=== PATIENT | female | born 1990 | race Caucasian/White ===

== ENCOUNTER 2022-01-14 06:51 | Day surgery (SDC) | payer MEDICARE, OTHER, SELFPAY ==
[2022-01-14 07:12] VITALS: BMI 29.0
[2022-01-14 07:25] VITALS: BP 104/70; PULSE 84; RESP 16; TEMP 36.3; O2SAT 95
[2022-01-14] MEDS: SODIUM CHLORIDE 0.9 % (FLUSH) 10 ML SYRINGE IVF (07:26)
[2022-01-14] MEDS: LACTATED RINGERS 1000 ML 1,000 ML 100 ML IV (07:26)
--- NOTE | 2022-01-14 08:07 | W.PM.GYNPROC ---
Procedure Note Date Seen: 01/14/22 Procedure Details: PREOPERATIVE DIAGNOSIS: Menometrorrhagia, failed medical management. POSTOPERATIVE DIAGNOSIS: menometrorrhagia, failed medical management. NAME OF PROCEDURE: 1. Hysteroscopy. 2. D and C. 3. Polypectomy. 4. Marisel endometrial ablation. SURGEON: Danay ANESTHESIA: Monitored anesthesia care and paracervical block COMPLICATIONS: None. ESTIMATED BLOOD LOSS: < 10 mL. FINDINGS: Normal endometrial cavity, polypoid endometrial tissue noted anteriorly.. PATHOLOGY SPECIMENS: Endometrial curettings. PROCEDURE: After obtaining informed consent, the patient was taken to the operating room where she received monitored anesthesia care. She was prepared and draped in the normal sterile fashion, in the dorsal lithotomy position. An open-sided bivalve speculum was introduced into the vagina and the cervix visualized. The anterior lip of the cervix was grasped with a single-tooth tenaculum for traction. A paracervical block was then administered using a total of 20 mL of a 50/50 mixture of 0.25% Marcaine and 1% lidocaine plain. The uterus was gently sounded. Sound length was 9 cm. The cervix length was determined to be 4 cm using Hegar dilators, yielding a uterine cavity length of 5 cm. The cervix was gently dilated to a #6 Hegar dilator. A hysteroscope was then advanced under direct visualization through the cervix into the uterine cavity. Sterile normal saline was used as distending medium. The uterine cavity was carefully inspected with the findings noted above. The TruClear morcellator with the soft tissue mini blade was inserted through the hysteroscope, and used to remove the anterior polypoid endometrial tissue.The hysteroscope was then removed. The endometrial lining was then sharply curetted. The Marisel device was then set to a cavity length of 5 cm, inserted through the cervical os into the uterine cavity to the level of the fundus, and deployed. The device was sealed against the cervix. The safety checks were then passed x2 and the 2-minute treatment cycle initiated. Following completion of the treatment cycle, the Marisel device was removed. The hysteroscope was advanced again into the uterine cavity and the uterine cavity inspected. A good ablation was noted from the internal os to fundus and to the cornua bilaterally. Pictures were taken for documentation purposes. The hysteroscope was removed. The tenaculum was removed. There was little bleeding from the tenaculum site, which was controlled with direct pressure sponge stick. All instruments were then removed. The patient tolerated the procedure well. Sponge, lap, needle, and instrument counts reported as correct x2. The patient was taken to the recovery room awake in a stable condition.
[2022-01-14] MEDS: LIDOCAINE 1% 5 ml (pf) 5 ML VIAL 10 ML INJECTION (08:25)
[2022-01-14] MEDS: BUPIVACAINE 0.25% 30 ML INJECTION (08:25)
--- NOTE | 2022-01-14 09:01 | W.ANESCHARGE ---
Anesthesia Charges Start Date/Time Anesthesia Start Date: 01/14/22 Anesthesia Start Time: 08:09 Stop Date/Time Anesthesia Stop Date: 01/14/22 Anesthesia Stop Time: 09:04 Summary Emergency: No
[2022-01-14 09:07] VITALS: BP 99/79; PULSE 81; RESP 16; TEMP 36.2; O2SAT 96
[2022-01-14 09:30] VITALS: BP 101/66; PULSE 76; RESP 16
[2022-01-14 09:40] VITALS: RESP 16; O2SAT 99
== END 2022-01-14 09:53 | disposition home or self-care (01) ==
PROVIDERS: PCP Physician Assistant; Visit Provider Obstetrics & Gynecology
PROC: 0UF98ZZ Fragmentation in Uterus, Via Natural or Artificial Opening Endoscopic (ICD-10-PCS; CPT 58563; principal; 2022-01-14 08:00)
DX: N92.1 Excessive and frequent menstruation with irregular cycle (principal)
CPT/HCPCS: 58563; 00952; 81025; 88305; J1100; J1885; J2250; J2405; J2704; J3010; J3490; J7120

== ENCOUNTER 2022-04-24 11:16 | Emergency (ER) | payer MEDICARE, OTHER, SELFPAY ==
[2022-04-24 11:19] VITALS: BP 122/84; PULSE 91; TEMP 36.3; O2SAT 98; BMI 29.1
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
--- NOTE | 2022-04-24 11:59 | ED_ITS ---
HPI - General Adult General Chief complaint: Rib Pain Stated complaint: Rib pain left side Time Seen by Provider: 04/24/22 11:24 History of Present Illness HPI narrative: This 31-year-old female comes in with an injury to her left lateral posterior ribs. She states that it was a week ago when she slipped on some ice and fell hitting this area on a step. She did not have immediate intense pain but over the course of the next day or 2 she has lots of pain in this area. It is distinctly worse with certain movements and palpating in the left mid back region. She does not report any shortness of breath. Related Data Home Medications Medication Instructions Recorded Confirmed aripiprazole 30 mg tablet 30 mg PO DAILY 12/05/21 04/24/22 bupropion HCl 300 mg 24 hr tablet, 300 mg PO DAILY 12/05/21 04/24/22 extended release fexofenadine 180 mg tablet 180 mg PO QDAY 12/05/21 04/24/22 (María Allergy) trazodone 50 mg tablet 50 mg PO QDAY 12/05/21 04/24/22 venlafaxine 75 mg capsule,extended 75 mg PO QAM 12/05/21 04/24/22 release 24 hr fluticasone propionate 50 2 spray intranasal Q12H PRN 01/13/22 04/24/22 mcg/actuation nasal spray,suspension omeprazole 20 mg capsule,delayed 20 mg PO DAILY 01/13/22 04/24/22 release Previous Rx's Medication Instructions Recorded ketorolac 10 mg tablet 10 mg PO Q8H 5 days #15 tabs 04/24/22 tramadol 50 mg tablet 50 mg PO Q6H PRN pain #20 tabs 04/24/22 Allergies Allergy/AdvReac Type Severity Reaction Status Date / Time azithromycin Allergy Severe Throat Verified 04/24/22 11:22 swelling Review of Systems Status of ROS: Reports: 10 or more systems reviewed and unremarkable except as noted in History and below Narrative: Constitutional: No fevers, no weight gain or loss. Eyes: No discharge. No vision changes. HENT: No congestion, no sore throat, no ear pain. Cardiovascular: No chest pain, no palpitations. Respiratory: No shortness of breath, no wheezes, no cough. Left lateral posterior rib pain which is worse with taking a deep breath and palpating in that area. Gastrointestinal: No abdominal pain, no vomiting, no diarrhea. Genitourinary: No dysuria, no hematuria. Musculoskeletal: Normal range of motion. Skin: No rashes, no pruritis. Neurological: No dizziness, weakness, sensory change, speech change. Endo/Heme/Allergies: No bruising or bleeding. No polydipsia. Pysch: no suicidality, no anxiety, no insomnia. All other systems reviewed and are negative. [facility] Medical History (Updated 04/24/22 @ 12:20 by Neil Burnette MD) Abnormal liver enzymes Abnormality of rib determined by X-ray Allergic rhinitis, unspecified Autism spectrum disorder Bilateral dry eyes Calculus of gallbladder without cholecystitis without obstruction Chronic GERD Constipation, unspecified Depression with anxiety Hepatic steatosis Hyperlipidemia, unspecified Mild intellectual disabilities Moderate episode of recurrent major depressive disorder Myopia, bilateral Regular astigmatism, bilateral Surgical History (Updated 12/07/21 @ 13:09 by Kathryn Jon MD) History of tubal ligation (06/2017) Perineal abscess (02/2009) S/P tonsillectomy and adenoidectomy (2014) Family History (Updated 12/07/21 @ 13:09 by Kathryn Jon MD) Father High cholesterol Maternal Grandmother Diabetes Social History (Updated 12/07/21 @ 13:12 by Kathryn Jon MD) Narrative: Single 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 HEENT: Normocephalic, atraumatic. Neck: Normal range of motion. Nontender. Supple. Heart: Regular. No murmurs. Normal rate. Intact distal pulses. Lungs: Clear to auscultation. No wheezes, rhonchi, or rales. No sign of bruising to the chest wall or back. She has distinct pain in the left lateral ribs posterior to the axillary line on the left side. Abdomen: Normal bowel sounds. Nontender. No rebound tenderness. Genitalia: Deferred. Back: No midline tenderness. Normal range of motion. Extremities: Normal range of motion. No injury. Skin: Intact. No rash. Warm. No erythema or pallor. Neurologic: No altered sensation. No weakness. Alert and oriented. Psychiatric: No suicidality. No anxiety or depression. No insomnia. Nursing notes and vitals signs are reviewed. Const: Vital Signs, click to edit/add: Vital Signs - 24 hr 04/24/22 11:19 Temperature 97.3 F L Pulse Rate [Pulse Oximeter] 91 Blood Pressure [Ri ght Upper Arm] 122/84 Pulse Oximetry 98 Oxygen Delivery Me thod Room Air Course Vital Signs Vital signs: Initial Vital Signs Temperature 97.3 F L 04/24/22 11:19 Temperature Source Temporal Artery Scan 04/24/22 11:19 Pulse Rate 91 04/24/22 11:19 Pulse Rhythm 04/24/22 11:19 Pulse Strength 3+ Normal 04/24/22 11:19 Blood Pressure 122/84 04/24/22 11:19 Blood Pressure Mean 96 04/24/22 11:19 Blood Pressure Position Sitting 04/24/22 11:19 Pulse Oximetry 98 04/24/22 11:19 Oxygen Delivery Method 04/24/22 11:19 Vital Signs Temperature 97.3 F L 04/24/22 11:19 Pulse Rate 91 04/24/22 11:19 Blood Pressure 122/84 04/24/22 11:19 Pulse Oximetry 98 04/24/22 11:19 Oxygen Delivery Method 04/24/22 11:19 Temperature 97.3 F L 04/24/22 11:19 Pulse Rate 91 04/24/22 11:19 Blood Pressure 122/84 04/24/22 11:19 Pulse Oximetry 98 04/24/22 11:19 Oxygen Delivery Method 04/24/22 11:19 Medical Decision Making MDM Narrative Medical decision making narrative: This patient comes in because of pain in the left posterior ribs after a fall that occurred about a week ago. She does not have any shortness of breath. Bedside ultrasound images show no evidence of pneumothorax. I did discuss the role of a chest x-ray which the patient declined in a process of shared decision making. She did receive a rib belt and a prescription for tramadol and Toradol. Discharge Plan Discharge Clinical Impression: Contusion of rib on left side Patient Disposition: Home, Self-Care Condition: Stable Additional Instructions: Wear rib belt and use medications as needed and indicated. Follow up with MD or return if worsening. Prescriptions: New tramadol 50 mg tablet 50 mg PO Q6H PRN (Reason: pain) Qty: 20 0RF ketorolac 10 mg tablet 10 mg PO Q8H 5 Days Qty: 15 0RF No Action bupropion HCl 300 mg tablet extended release 24 hr 300 mg PO DAILY aripiprazole 30 mg tablet 30 mg PO DAILY venlafaxine 75 mg capsule,extended release 24hr 75 mg PO QAM trazodone 50 mg tablet 50 mg PO QDAY fexofenadine [María Allergy] 180 mg tablet 180 mg PO QDAY omeprazole 20 mg capsule,delayed release(DR/EC) 20 mg PO DAILY fluticasone propionate 50 mcg/actuation spray,suspension 2 spray INTRANASAL Q12H PRN Label Comments: SHAKE LIQUID AND USE 1 TO 2 SPRAYS IN EACH NOSTRIL EVERY DAY Follow Up/Referrals: Prerna Garza PA [Primary Care Provider] - Stand Alone Forms: [facility] Info Instructions Procedures Ultrasound Other exam #1: Anatomical areas examined: Left lateral posterior ribs; upper anterior ribs and pleura. Indications: Chest wall injury. Description/findings: No sign of pneumothorax or rib injury. Impression: Normal exam.
[2022-04-24 12:36] VITALS: PULSE 80; RESP 16; TEMP 37; O2SAT 96
--- NOTE | 2022-04-24 12:37 | PC.NURSE ---
Patient left ambulatory. Rib belt supplied to patient. Prescriptions for Tramadol and Ketorlac sent to [facility]. All questions answered.
== END 2022-04-24 12:38 | disposition home or self-care (01) ==
PROVIDERS: Emergency Provider Emergency Medicine Emergency Medical Services; PCP Physician Assistant
DX: S20.212A Contusion of left front wall of thorax, initial encounter (principal); W00.9XXA Unspecified fall due to ice and snow, initial encounter
CPT/HCPCS: 76604; 99283; 99284

== ENCOUNTER 2022-09-11 17:04 | Emergency (ER) | payer MEDICARE, OTHER, SELFPAY ==
[2022-09-11 17:16] VITALS: BP 123/78; PULSE 83; RESP 18; TEMP 36.7; O2SAT 96; BMI 30.7
--- NOTE | 2022-09-11 18:30 | ED.GENADULT ---
HPI - General Adult General Time Seen by Provider: 18:30 Date Seen: 09/11/22 Chief complaint: Psychiatric Problem/Disorder Stated complaint: Mental health Time Seen by Provider: 09/11/22 18:26 Source: patient Mode of arrival: ambulatory Limitations: no limitations History of Present Illness HPI narrative: Tonya is a 32-year-old female past medical history includes depression anxiety which she takes Abilify, Wellbutrin, trazodone and Effexor presents emerged department via private car with psychiatric problem. Patient states that her parents are moving to help her grandparents this is making her sad, does not know if she can deal with this and be alone, she does not really like her job at [employer], she made a comment that she would rather but she knows she would not go through with this. She has a provider called Shelia Brian in [place] who prescribes her medications she does not see her till the end of September, she also has a counselor outpatient that she sees in [place], she sees her next Thursday. She was hospitalized once in the past for suicidal ideations on her 19st birthday. She denies any auditory or visual hallucinations, she denies any alcohol or tobacco use. No illicit drug use, she was wondering maybe she needs a med adjustment. She has had some seasonal allergies but no other concerns at this time.. Related Data Home Medications Medication Instructions Recorded Confirmed aripiprazole 30 mg tablet 30 mg PO DAILY 12/05/21 04/26/22 bupropion HCl 300 mg 24 hr tablet, 300 mg PO DAILY 12/05/21 04/26/22 extended release fexofenadine 180 mg tablet 180 mg PO QDAY 12/05/21 04/26/22 (María Allergy) trazodone 50 mg tablet 50 mg PO QDAY 12/05/21 04/26/22 venlafaxine 75 mg capsule,extended 75 mg PO QAM 12/05/21 04/26/22 release 24 hr fluticasone propionate 50 2 spray intranasal Q12H PRN 01/13/22 04/26/22 mcg/actuation nasal spray,suspension omeprazole 20 mg capsule,delayed 20 mg PO DAILY 01/13/22 04/26/22 release melatonin 5 mg tablet 5 mg PO HS PRN 09/11/22 09/11/22 Previous Rx's Medication Instructions Recorded ketorolac 10 mg tablet 10 mg PO Q8H 5 days #15 tabs 04/24/22 tramadol 50 mg tablet 50 mg PO Q6H PRN pain #20 tabs 04/24/22 cyclobenzaprine 10 mg tablet 10 mg PO TID PRN muscle spasm #30 04/26/22 tabs prednisone 20 mg tablet 40 mg PO QDAY #10 tabs 04/26/22 Allergies Allergy/AdvReac Type Severity Reaction Status Date / Time azithromycin Allergy Severe Throat Verified 04/26/22 11:38 swelling Review of Systems Status of ROS: Reports: 10 or more systems reviewed and unremarkable except as noted in History and below 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 (ICD-10) Allergic rhinitis, unspecified ?J30.9 - Allergic rhinitis, unspecified (ICD-10) Autism spectrum disorder ?F84.0 - Autistic disorder (ICD-10) Bilateral dry eyes ?H04.123 - Dry eye syndrome of bilateral lacrimal glands (ICD-10) Calculus of gallbladder without cholecystitis without obstruction ?K80.20 - Calculus of gallbladder without cholecystitis without obstruction (ICD-10) Chronic GERD ?K21.9 - Gastro-esophageal reflux disease without esophagitis (ICD-10) Constipation, unspecified ?K59.00 - Constipation, unspecified (ICD-10) Depression with anxiety ?F41.8 - Other specified anxiety disorders (ICD-10) Hepatic steatosis ?K76.0 - Fatty (change of) liver, not elsewhere classified (ICD-10) Hyperlipidemia, unspecified ?E78.5 - Hyperlipidemia, unspecified (ICD-10) Mild intellectual disabilities ?F70 - Mild intellectual disabilities (ICD-10) Moderate episode of recurrent major depressive disorder ?F33.1 - Major depressive disorder, recurrent, moderate (ICD-10) Myopia, bilateral ?H52.13 - Myopia, bilateral (ICD-10) Regular astigmatism, bilateral ?H52.223 - Regular astigmatism, bilateral (ICD-10) Surgical History (Updated 12/07/21 @ 13:09 by Kathryn Jon MD) History of tubal ligation (06/2017) ?Z98.51 - Tubal ligation status (ICD-10) Perineal abscess (02/2009) ?L02.215 - Cutaneous abscess of perineum (ICD-10) S/P tonsillectomy and adenoidectomy (2014) ?Z90.89 - Acquired absence of other organs (ICD-10) Family History (Updated 12/07/21 @ 13:09 by Kathryn Jon MD) Father High cholesterol Maternal Grandmother Diabetes Social History (Updated 12/07/21 @ 13:12 by Kathryn Jon MD) Narrative: Single 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 Highest level of school completed/degree received: some college, no degree Smoking Status: Never smoker How often do you have a drink containing alcohol: monthly or less AUDIT-C Alcohol total score: 1 Non-prescribed substance use: denies use Caffeine: No service: No Exam Narrative: Exam Narrative: General: Nontoxic in appearance, no obvious distress HEENT: Tympanic membranes within normal limits bilateral oropharynx clear and moist Lungs: Clear to auscultation bilaterally Heart: normal sinus rhythm S1-S2 Abdomen: soft nontender Neuro: Alert awake and oriented x3 Psych: Mood and affect normal Const: Vital Signs, click to edit/add: Vital Signs - 24 hr 09/11/22 17:16 09/11/22 19:20 Temperature 98.0 F 97 F L Pulse Rate [Right Pulse Oximeter] 83 70 Respiratory Rate 18 20 Blood Pressure [Ri ght Upper Arm] 123/78 120/82 Pulse Oximetry 96 96 Oxygen Delivery Me thod Room Air Room Air Course Course Hospital Course: 6:30 PM: AIDET performed. Workup will include mental health labs including TSH, CBC and CMP, will have her see telehealth consult, patient is not currently suicidal, she will need some medication adjustments that will be through her primary care provider. Differential diagnosis include but not limited to severe diagnosis of severe depression with suicidal plan, chemical intoxication with suicidal ideation and risk of self-harm, schizoaffective disorder with risk of self-harm, bipolar disorder with severe depressive phase and risk of self-harm, personality disorder, depression due to hypothyroidism metabolic derangement or EVENING OR NIGHT NURSE SUPERVISOR abnormality. Reevaluation(s) Reevaluation #1: Spoke with Lisa from [facility] assessment, recommendations were discharge, patient does not meet criteria for inpatient psychiatry, patient will reach out to her provider discussed changing her current medications, she will also increase her frequency outpatient therapy, patient's labs including CBC metabolic panel and TSH were within normal limits. This was discussed with patient she was in agreement this plan, return precautions given. Vital Signs Vital signs: Initial Vital Signs Temperature 98.0 F 09/11/22 17:16 Temperature Source Temporal Artery Scan 09/11/22 17:16 Pulse Rate 83 09/11/22 17:16 Respiratory Rate 18 09/11/22 17:16 Blood Pressure 123/78 09/11/22 17:16 Blood Pressure Mean 93 09/11/22 17:16 Blood Pressure Position Sitting 09/11/22 17:16 Pulse Oximetry 96 09/11/22 17:16 Oxygen Delivery Method Room Air 09/11/22 17:16 Vital Signs Temperature 98.0 F 09/11/22 17:16 Pulse Rate 83 09/11/22 17:16 Respiratory Rate 18 09/11/22 17:16 Blood Pressure 123/78 09/11/22 17:16 Pulse Oximetry 96 09/11/22 17:16 Oxygen Delivery Method Room Air 09/11/22 17:16 Temperature 97 F L 09/11/22 19:20 Pulse Rate 70 09/11/22 19:20 Respiratory Rate 20 09/11/22 19:20 Blood Pressure 120/82 09/11/22 19:20 Pulse Oximetry 96 09/11/22 19:20 Oxygen Delivery Method Room Air 09/11/22 19:20 Medical Decision Making Lab Data Labs: Lab Results 09/11/22 Range/Units 19:08 WBC 7.96 (4.50-11.00) K/uL RBC 4.19 (4.00-5.20) m/uL Hgb 12.1 (12.0-16.0) gm/dL Hct 37.3 (33.0-51.0) % MCV 89 (80-100) fL MCH 29 (26-34) pg MCHC 32 (32-36) gm/dL RDW Coeff of Vandana 12.8 (11.5-15.5) % Plt Count 283 (140-440) K/uL Neut % (Auto) 59.7 (42.0-72.0) % Lymph % (Auto) 30.4 (20-44) % [place] % (Auto) 6.4 (0.0-11.0) % Eos % (Auto) 2.9 (0.0-7.0) % Baso % (Auto) 0.5 (0.0-3.0) % Neut # (Auto) 4.75 (1.7-7.0) K/uL Lymph # (Auto) 2.42 (0.90-2.90) K/uL [place] # (Auto) 0.50 (0.00-0.90) K/UL Eos # (Auto) 0.23 (0.00-0.50) K/uL Baso # (Auto) 0.04 (0.00-0.30) K/uL Sodium 137 (135-149) mmol/L Potassium 4.1 (3.6-5.1) mmol/L Chloride 106 (96-114) mmol/L Carbon Dioxide 27 (20-32) mmol/L BUN 10 (5-24) mg/dL Creatinine 0.8 (0.5-1.5) mg/dL Estimated Creat Clear 92.76 Estimated GFR 99 ml/min Glucose 91 (60-115) mg/dL Calcium 9.0 (8.4-10.6) mg/dL Total Bilirubin 0.1 (0.1-1.5) mg/dL AST 20 (12-35) U/L ALT 20 (4-35) U/L Alkaline Phosphatase 63 (40-150) U/L Total Protein 7.1 (6.0-8.3) g/dL Albumin 4.2 (3.3-5.0) g/dL TSH 1.160 (0.270-4.20) uIU/mL Discharge Plan Discharge Clinical Impression: Behavior concern Patient Disposition: Home, Self-Care Condition: Improved Instructions: Depression (ED) Additional Instructions: To follow up with outpatient therapy as scheduled on Thursday, to reach out to prescribing provider and discuss alternating or changing current medications, return if any worsening symptoms. Activity Level: No Restrictions Discharge Diet: Regular Prescriptions: No Action bupropion HCl 300 mg tablet extended release 24 hr 300 mg PO DAILY aripiprazole 30 mg tablet 30 mg PO DAILY venlafaxine 75 mg capsule,extended release 24hr 75 mg PO QAM trazodone 50 mg tablet 50 mg PO QDAY fexofenadine [María Allergy] 180 mg tablet 180 mg PO QDAY prednisone 20 mg tablet 40 mg PO QDAY Qty: 10 0RF cyclobenzaprine 10 mg tablet 10 mg PO TID PRN (Reason: muscle spasm) Qty: 30 0RF omeprazole 20 mg capsule,delayed release(DR/EC) 20 mg PO DAILY fluticasone propionate 50 mcg/actuation spray,suspension 2 spray INTRANASAL Q12H PRN Patient Comments: SHAKE LIQUID AND USE 1 TO 2 SPRAYS IN EACH NOSTRIL EVERY DAY melatonin 5 mg tablet 5 mg PO HS PRN tramadol 50 mg tablet 50 mg PO Q6H PRN (Reason: pain) Qty: 20 0RF ketorolac 10 mg tablet 10 mg PO Q8H 5 Days Qty: 15 0RF Follow Up/Referrals: Prerna Garza PA [Primary Care Provider] - Stand Alone Forms: MyHealth Info Instructions
[2022-09-11 19:13] LABS: Basophils Absolute Auto 0.04 K/uL (0.00-0.30); Basophils Percent Auto 0.5 % (0.0-3.0); Eosinophils Absolute Auto 0.23 K/uL (0.00-0.50); Eosinophils Percent Auto 2.9 % (0.0-7.0); Hematocrit 37.3 % (33.0-51.0); Hemoglobin* 12.1 gm/dL (12.0-16.0); Immature Granulocytes Abs Auto 0.01 K/uL (0.00-0.30); Immature Granulocytes Pct Auto 0.1 %; Lymphocytes Absolute Auto 2.42 K/uL (0.90-2.90); Lymphocytes Percent Auto 30.4 % (20-44); Mean Corpuscular HGB Conc 32 gm/dL (32-36); Mean Corpuscular Hemoglobin 29 pg (26-34); Mean Corpuscular Volume 89 fL (80-100); Monocytes Percent Auto 6.4 % (0.0-11.0); Neutrophils Absolute Auto 4.75 K/uL (1.7-7.0); Neutrophils Percent Auto 59.7 % (42.0-72.0); Platelet Count* 283 K/uL (140-440); RDW Coefficient of Variation % 12.8 % (11.5-15.5); Red Blood Count 4.19 m/uL (4.00-5.20); White Blood Count* 7.96 K/uL (4.50-11.00)
[2022-09-11 19:20] VITALS: BP 120/82; PULSE 70; RESP 20; TEMP 36.1; O2SAT 96
[2022-09-11 19:24] LABS: Slide Review Reflex No
[2022-09-11 19:33] LABS: Albumin* 4.2 g/dL (3.3-5.0)
[2022-09-11 19:34] LABS: Chloride* 106 mmol/L (96-114); Potassium* 4.1 mmol/L (3.6-5.1); Sodium* 137 mmol/L (135-149)
[2022-09-11 19:36] LABS: Aspartate Amino Transferase* 20 U/L (12-35); Bilirubin Total* 0.1 mg/dL (0.1-1.5); Carbon Dioxide* 27 mmol/L (20-32); Creatinine* 0.8 mg/dL (0.5-1.5); Est. Creatinine Clearance* 92.76; Estimated Glomerular Filt Rate 99 ml/min; Total Protein* 7.1 g/dL (6.0-8.3)
[2022-09-11 19:37] LABS: Alanine Aminotransferase* 20 U/L (4-35); Alkaline Phosphatase* 63 U/L (40-150); Blood Urea Nitrogen* 10 mg/dL (5-24); Glucose* 91 mg/dL (60-115)
[2022-09-11 21:00] VITALS: BP 137/87; PULSE 85; RESP 18; TEMP 36.1; O2SAT 97
== END 2022-09-11 20:58 | disposition home or self-care (01) ==
PROVIDERS: Emergency Provider Student in an Organized Health Care Education/Training Program; PCP Physician Assistant
DX: F98.8 Other specified behavioral and emotional disorders with onset usually occurring in childhood and adolescence (principal)
CPT/HCPCS: 36415; 80053; 84443; 85025; 99283

== ENCOUNTER 2023-05-23 12:08 | Emergency (ER) | payer MEDICARE, OTHER, SELFPAY ==
[2023-05-23 12:11] VITALS: BP 133/91; PULSE 81; RESP 16; TEMP 36.4; O2SAT 97; BMI 29.4
--- NOTE | 2023-05-23 12:27 | ED.GENADULT ---
HPI - General Adult General Chief complaint: Nausea/Vomiting Stated complaint: vomiting, chills Time Seen by Provider: 05/23/23 12:19 History of Present Illness HPI narrative: Patient is a 32 for a female has had nausea vomiting diarrhea over the last few days. She [facility] were all negative. She reports occasional chills, no significant abdominal pain, no dysuria frequency, her stools are looser than normal but somewhat formed. She has tried to eat or drink and then she gets nauseated. Her medical history was reviewed her chart was reviewed. Her medications are reviewed. Denies chest pain, breathing difficulty, rash, neck stiffness or headache. Related Data Home Medications Medication Instructions Recorded Confirmed aripiprazole 30 mg tablet 30 mg PO DAILY 12/05/21 05/23/23 bupropion HCl 300 mg 24 hr tablet, 300 mg PO DAILY 12/05/21 05/23/23 extended release fexofenadine 180 mg tablet 180 mg PO QDAY 12/05/21 04/26/22 (María Allergy) venlafaxine 75 mg capsule,extended 75 mg PO QAM 12/05/21 05/23/23 release 24 hr fluticasone propionate 50 2 spray intranasal Q12H PRN 01/13/22 04/26/22 mcg/actuation nasal spray,suspension omeprazole 20 mg capsule,delayed 20 mg PO DAILY 01/13/22 05/23/23 release melatonin 5 mg tablet 5 mg PO HS PRN 09/11/22 05/23/23 Previous Rx's Medication Instructions Recorded ketorolac 10 mg tablet 10 mg PO Q8H 5 days #15 tabs 04/24/22 tramadol 50 mg tablet 50 mg PO Q6H PRN pain #20 tabs 04/24/22 cyclobenzaprine 10 mg tablet 10 mg PO TID PRN muscle spasm #30 04/26/22 tabs prednisone 20 mg tablet 40 mg (2 x 20 mg) PO QDAY #10 tabs 04/26/22 Allergies Allergy/AdvReac Type Severity Reaction Status Date / Time azithromycin Allergy Severe Throat Verified 04/26/22 11:38 swelling Review of Systems Status of ROS: Reports: 10 or more systems reviewed and unremarkable except as noted in History and below [facility] Medical History Bilateral dry eyes ?H04.123 - Dry eye syndrome of bilateral lacrimal glands (ICD-10) Myopia, bilateral ?H52.13 - Myopia, bilateral (ICD-10) Regular astigmatism, bilateral ?H52.223 - Regular astigmatism, bilateral (ICD-10) Calculus of gallbladder without cholecystitis without obstruction ?K80.20 - Calculus of gallbladder without cholecystitis without obstruction (ICD-10) Hepatic steatosis ?K76.0 - Fatty (change of) liver, not elsewhere classified (ICD-10) Abnormal liver enzymes ?R74.8 - Abnormal levels of other serum enzymes (ICD-10) 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 (ICD-10) Moderate episode of recurrent major depressive disorder ?F33.1 - Major depressive disorder, recurrent, moderate (ICD-10) Mild intellectual disabilities ?F70 - Mild intellectual disabilities (ICD-10) Chronic GERD ?K21.9 - Gastro-esophageal reflux disease without esophagitis (ICD-10) Hyperlipidemia, unspecified ?E78.5 - Hyperlipidemia, unspecified (ICD-10) Autism spectrum disorder ?F84.0 - Autistic disorder (ICD-10) Constipation, unspecified ?K59.00 - Constipation, unspecified (ICD-10) Allergic rhinitis, unspecified ?J30.9 - Allergic rhinitis, unspecified (ICD-10) Depression with anxiety ?F41.8 - Other specified anxiety disorders (ICD-10) Surgical History Perineal abscess (02/2009) ?L02.215 - Cutaneous abscess of perineum (ICD-10) S/P tonsillectomy and adenoidectomy (2014) ?Z90.89 - Acquired absence of other organs (ICD-10) History of tubal ligation (06/2017) ?Z98.51 - Tubal ligation status (ICD-10) Family History Father High cholesterol Maternal Grandmother Diabetes Social History Narrative: Single 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 Highest level of school completed/degree received: some college, no degree Smoking Status: Never smoker How often do you have a drink containing alcohol: monthly or less AUDIT-C Alcohol total score: 1 Non-prescribed substance use: denies use Caffeine: No service: No Exam Narrative: Exam Narrative: Objective: Vital signs are within normal limits Alert orient x3 noncyanotic No scleral icterus no facial asymmetry Throat is clear Neck is supple abdomen is benign soft nontender no masses bowel sounds normoactive extremities are no edema neurologic nonfocal Const: Vital Signs, click to edit/add: Vital Signs - 24 hr 05/23/23 12:11 Temperature 97.6 F Pulse Rate [Pulse Oximeter] 81 Respiratory Rate 16 Blood Pressure [Ri t Upper Arm] 133/91 H Pulse Oximetry 97 Oxygen Delivery Me thod Room Air Course Vital Signs Vital signs: Initial Vital Signs Temperature 97.6 F 05/23/23 12:11 Temperature Source Temporal Artery Scan 05/23/23 12:11 Pulse Rate 81 05/23/23 12:11 Respiratory Rate 16 05/23/23 12:11 Blood Pressure 133/91 H 05/23/23 12:11 Blood Pressure Mean 105 05/23/23 12:11 Blood Pressure Position Supine 05/23/23 12:11 Pulse Oximetry 97 05/23/23 12:11 Oxygen Delivery Method Room Air 05/23/23 12:11 Vital Signs Temperature 97.6 F 05/23/23 12:11 Pulse Rate 81 05/23/23 12:11 Respiratory Rate 16 05/23/23 12:11 Blood Pressure 133/91 H 05/23/23 12:11 Pulse Oximetry 97 05/23/23 12:11 Oxygen Delivery Method Room Air 05/23/23 12:11 Temperature 97.6 F 05/23/23 12:11 Pulse Rate 81 05/23/23 12:11 Respiratory Rate 16 05/23/23 12:11 Blood Pressure 133/91 H 05/23/23 12:11 Pulse Oximetry 97 05/23/23 12:11 Oxygen Delivery Method Room Air 05/23/23 12:11 Medical Decision Making MDM Narrative Medical decision making narrative: 32-year-old female with nausea vomiting and looser stool than normal. This is occurred on and off for the last few days. Has had some difficulty taking fluids. May have mild dehydration. Certainly could have some type of viral enteritis. She had negative viral studies yesterday for COVID influenza RSV. Patient denies chest pain or breathing problem. At this point I think some labs would be appropriate as well as IV fluid, IV Zofran. Disposition pending findings and clinical status. Addendum 1:56 p.m. patient feels better, her vital signs look unremarkable, her labs look reassuring, or amylase just minimally elevated CRP is normal. White count is normal. Electrolytes are normal. I think we can allow her to go home rest light activity fluids light diet, resume activity as tolerated update her regular doctor next couple of days assume this is some type of viral enteritis. She has no surgical changes in her abdomen and she feels better. Continue efforts at hydration. Lab Data Labs: Lab Results 05/23/23 Range/Units 13:00 WBC 8.49 (4.50-11.00) K/uL RBC 4.43 (4.00-5.20) m/uL Hgb 12.6 (12.0-16.0) gm/dL Hct 38.9 (33.0-51.0) % MCV 88 (80-100) fL MCH 28 (26-34) pg MCHC 32 (32-36) gm/dL RDW Coeff of Vandana 13.9 (11.5-15.5) % Plt Count 370 (140-440) K/uL Neut % (Auto) 62.4 (42.0-72.0) % Lymph % (Auto) 25.4 (20-44) % [place] % (Auto) 8.5 (0.0-11.0) % Eos % (Auto) 3.1 (0.0-7.0) % Baso % (Auto) 0.5 (0.0-3.0) % Neut # (Auto) 5.30 (1.7-7.0) K/uL Lymph # (Auto) 2.16 (0.90-2.90) K/uL [place] # (Auto) 0.70 (0.00-0.90) K/UL Eos # (Auto) 0.26 (0.00-0.50) K/uL Baso # (Auto) 0.04 (0.00-0.30) K/uL Abs Immat Gran (auto) 0.01 (0.00-0.30) K/uL Imm/Tot Granulo (auto) 0.1 % Sodium 137 (135-149) mmol/L Potassium 3.8 (3.6-5.1) mmol/L Chloride 105 (96-114) mmol/L Carbon Dioxide 25 (20-32) mmol/L Anion Gap 7 (7-15) mEq/L BUN 12 (5-24) mg/dL Creatinine 0.7 (0.5-1.5) mg/dL Estimated Creat Clear 106.01 Estimated GFR 116 ml/min Glucose 95 (60-115) mg/dL Calcium 9.4 (8.4-10.6) mg/dL C-Reactive Protein 0.8 (0.5-1.0) mg/dL Amylase 118 H (18-89) U/L Discharge Plan Discharge Clinical Impression: Nausea vomiting and diarrhea Patient Disposition: Home w/ Parent or Adult Condition: Improved Additional Instructions: Rest, fluids, light diet, recheck with regular doctor in the next few days, return to ED sooner problems or concerns. Activity Level: Light activity Discharge Diet: Full Liquid Diet Detail: Advance diet as tolerated Prescriptions: No Action bupropion HCl 300 mg tablet extended release 24 hr 300 mg PO DAILY aripiprazole 30 mg tablet 30 mg PO DAILY venlafaxine 75 mg capsule,extended release 24hr 75 mg PO QAM fexofenadine [María Allergy] 180 mg tablet 180 mg PO QDAY prednisone 20 mg tablet 40 mg PO QDAY Qty: 10 0RF cyclobenzaprine 10 mg tablet 10 mg PO TID PRN (Reason: muscle spasm) Qty: 30 0RF omeprazole 20 mg capsule,delayed release(DR/EC) 20 mg PO DAILY fluticasone propionate 50 mcg/actuation spray,suspension 2 spray INTRANASAL Q12H PRN Patient Comments: SHAKE LIQUID AND USE 1 TO 2 SPRAYS IN EACH NOSTRIL EVERY DAY melatonin 5 mg tablet 5 mg PO HS PRN tramadol 50 mg tablet 50 mg PO Q6H PRN (Reason: pain) Qty: 20 0RF ketorolac 10 mg tablet 10 mg PO Q8H 5 Days Qty: 15 0RF Follow Up/Referrals: Prerna Garza PA [Referring] - Stand Alone Forms: MyHealth Info Instructions
[2023-05-23 13:21] LABS: Basophils Absolute Auto 0.04 K/uL (0.00-0.30); Basophils Percent Auto 0.5 % (0.0-3.0); Eosinophils Absolute Auto 0.26 K/uL (0.00-0.50); Eosinophils Percent Auto 3.1 % (0.0-7.0); Hematocrit 38.9 % (33.0-51.0); Hemoglobin* 12.6 gm/dL (12.0-16.0); Immature Granulocytes Abs Auto 0.01 K/uL (0.00-0.30); Immature Granulocytes Pct Auto 0.1 %; Lymphocytes Absolute Auto 2.16 K/uL (0.90-2.90); Lymphocytes Percent Auto 25.4 % (20-44); Mean Corpuscular HGB Conc 32 gm/dL (32-36); Mean Corpuscular Hemoglobin 28 pg (26-34); Mean Corpuscular Volume 88 fL (80-100); Monocytes Percent Auto 8.5 % (0.0-11.0); Neutrophils Percent Auto 62.4 % (42.0-72.0); Platelet Count* 370 K/uL (140-440); RDW Coefficient of Variation % 13.9 % (11.5-15.5); Red Blood Count 4.43 m/uL (4.00-5.20); White Blood Count* 8.49 K/uL (4.50-11.00)
[2023-05-23 13:33] LABS: Chloride* 105 mmol/L (96-114); Sodium* 137 mmol/L (135-149)
[2023-05-23 13:34] LABS: Potassium* 3.8 mmol/L (3.6-5.1)
[2023-05-23 13:36] LABS: Amylase* 118 U/L (18-89); Creatinine* 0.7 mg/dL (0.5-1.5); Est. Creatinine Clearance* 106.01; Estimated Glomerular Filt Rate 116 ml/min
[2023-05-23 13:37] LABS: Anion Gap 7 mEq/L (7-15); Blood Urea Nitrogen* 12 mg/dL (5-24); Calcium* 9.4 mg/dL (8.4-10.6); Carbon Dioxide* 25 mmol/L (20-32); Glucose* 95 mg/dL (60-115)
[2023-05-23 13:40] LABS: C Reactive Protein* 0.8 mg/dL (0.5-1.0)
[2023-05-23 13:47] LABS: Slide Review Reflex No
== END 2023-05-23 14:03 | disposition home or self-care (01) ==
LOC: ED 12:36
PROVIDERS: Emergency Provider Family Medicine
DX: R11.2 Nausea with vomiting, unspecified (principal); R19.7 Diarrhea, unspecified
CPT/HCPCS: 36415; 80048; 82150; 85025; 86140; 96374; 99284

== ENCOUNTER 2023-07-26 08:56 | Emergency (ER) | payer MEDICARE, OTHER, SELFPAY ==
[2023-07-26 08:59] VITALS: BP 121/83; PULSE 101; RESP 18; TEMP 36.9; O2SAT 97; BMI 28.2
--- NOTE | 2023-07-26 09:27 | ED_ITS ---
HPI - General Adult General Chief complaint: Urogenital Problems, Female Stated complaint: vaginal bleeding Time Seen by Provider: 07/26/23 08:58 Source: patient, RN notes reviewed and old records reviewed Mode of arrival: ambulatory Limitations: no limitations History of Present Illness HPI narrative: Patient is a 32-year-old woman who underwent ablation in 2021 for heavy periods. She says for the past week and half she has been having some spotting, not enough that she has need to wear a pad. No abdominal pain. She wonders why she is bleeding again. Related Data Home Medications Medication Instructions Recorded Confirmed aripiprazole 30 mg tablet 30 mg PO DAILY 12/05/21 07/26/23 bupropion HCl 300 mg 24 hr tablet, 300 mg PO DAILY 12/05/21 07/26/23 extended release fexofenadine 180 mg tablet 180 mg PO QDAY 12/05/21 07/26/23 (María Allergy) omeprazole 20 mg capsule,delayed 20 mg PO DAILY 01/13/22 07/26/23 release melatonin 5 mg tablet 5 mg PO HS PRN 09/11/22 07/26/23 venlafaxine 150 mg 150 mg PO DAILY 07/26/23 07/26/23 capsule,extended release 24 hr Allergies Allergy/AdvReac Type Severity Reaction Status Date / Time azithromycin Allergy Severe Throat Verified 07/26/23 09:04 swelling Review of Systems Status of ROS: Reports: 6 or more systems reviewed and unremarkable except as noted in History and below [facility] Medical History Bilateral dry eyes ?H04.123 - Dry eye syndrome of bilateral lacrimal glands (ICD-10) Myopia, bilateral ?H52.13 - Myopia, bilateral (ICD-10) Regular astigmatism, bilateral ?H52.223 - Regular astigmatism, bilateral (ICD-10) Calculus of gallbladder without cholecystitis without obstruction ?K80.20 - Calculus of gallbladder without cholecystitis without obstruction (ICD-10) Hepatic steatosis ?K76.0 - Fatty (change of) liver, not elsewhere classified (ICD-10) Abnormal liver enzymes ?R74.8 - Abnormal levels of other serum enzymes (ICD-10) 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 (ICD-10) Moderate episode of recurrent major depressive disorder ?F33.1 - Major depressive disorder, recurrent, moderate (ICD-10) Mild intellectual disabilities ?F70 - Mild intellectual disabilities (ICD-10) Chronic GERD ?K21.9 - Gastro-esophageal reflux disease without esophagitis (ICD-10) Hyperlipidemia, unspecified ?E78.5 - Hyperlipidemia, unspecified (ICD-10) Autism spectrum disorder ?F84.0 - Autistic disorder (ICD-10) Constipation, unspecified ?K59.00 - Constipation, unspecified (ICD-10) Allergic rhinitis, unspecified ?J30.9 - Allergic rhinitis, unspecified (ICD-10) Depression with anxiety ?F41.8 - Other specified anxiety disorders (ICD-10) Surgical History Perineal abscess (02/2009) ?L02.215 - Cutaneous abscess of perineum (ICD-10) S/P tonsillectomy and adenoidectomy (2014) ?Z90.89 - Acquired absence of other organs (ICD-10) History of tubal ligation (06/2017) ?Z98.51 - Tubal ligation status (ICD-10) Family History Father High cholesterol Maternal Grandmother Diabetes Social History Narrative: Single 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 In general, an alert, well-appearing woman. Conversant, comfortable. Abdomen: Soft and nontender. Skin: Warm dry well perfused. Const: Vital Signs, click to edit/add: Vital Signs - 24 hr 07/26/23 08:59 Temperature 98.4 F Pulse Rate [Right Pulse Oximeter] 101 H Respiratory Rate 18 Blood Pressure [Ri ght Upper Arm] 121/83 Pulse Oximetry 97 Oxygen Delivery Me thod Room Air Documenting provider has reviewed patient's vital signs: yes Course Course ED Course: Records were reviewed. I discussed her care with Dr. Gonzalez briefly who advises that in 50% of woman who undergo ablation they are not amenorrheic. Feels that these symptoms are entirely normal, no follow-up needed. Discussed this with the patient. It does not sound as if she is having heavy enough bleeding to require any treatment. We did discuss possible , she tells me her last intercourse was at the beginning of the year. She does not have any abdominal pain. Suggested that we could do a test but she says she would rather just do one at home. She will come back if it is positive. I have low suspicion given absence of abdominal pain and spotting for a week and half, as well as timing of last intercourse. Reviewed with her that if test is positive or she develops significant abdominal pain she should come back. Otherwise, she can follow up with Gynecology as needed if she develops heavier bleeding. Vital Signs Vital signs: Initial Vital Signs Temperature 98.4 F 07/26/23 08:59 Temperature Source Temporal Artery Scan 07/26/23 08:59 Pulse Rate 101 H 07/26/23 08:59 Pulse Rhythm Regular 07/26/23 08:59 Respiratory Rate 18 07/26/23 08:59 Blood Pressure 121/83 07/26/23 08:59 Blood Pressure Mean 95 07/26/23 08:59 Blood Pressure Position Sitting 07/26/23 08:59 Pulse Oximetry 97 07/26/23 08:59 Oxygen Delivery Method Room Air 07/26/23 08:59 Vital Signs Temperature 98.4 F 07/26/23 08:59 Pulse Rate 101 H 07/26/23 08:59 Respiratory Rate 18 07/26/23 08:59 Blood Pressure 121/83 07/26/23 08:59 Pulse Oximetry 97 07/26/23 08:59 Oxygen Delivery Method Room Air 07/26/23 08:59 Temperature 98.4 F 07/26/23 08:59 Pulse Rate 101 H 07/26/23 08:59 Respiratory Rate 18 07/26/23 08:59 Blood Pressure 121/83 07/26/23 08:59 Pulse Oximetry 97 07/26/23 08:59 Oxygen Delivery Method Room Air 07/26/23 08:59 Discharge Plan Discharge Clinical Impression: Vaginal bleeding Patient Disposition: Home, Self-Care Condition: Stable Additional Instructions: This is likely normal vaginal bleeding, related to return of menses after your ablation. For significant abdominal pain or positive test, return to the emergency department for re-evaluation. Otherwise, follow-up as needed with gynecology for heavy bleeding. Prescriptions: No Action bupropion HCl 300 mg tablet extended release 24 hr 300 mg PO DAILY aripiprazole 30 mg tablet 30 mg PO DAILY fexofenadine [María Allergy] 180 mg tablet 180 mg PO QDAY omeprazole 20 mg capsule,delayed release(DR/EC) 20 mg PO DAILY melatonin 5 mg tablet 5 mg PO HS PRN venlafaxine 150 mg capsule,extended release 24hr 150 mg PO DAILY Follow Up/Referrals: Provider,Not a Local [Primary Care Provider] - Stand Alone Forms: [employer] Info Instructions
== END 2023-07-26 09:30 | disposition home or self-care (01) ==
PROVIDERS: Emergency Provider Emergency Medicine
DX: N93.9 Abnormal uterine and vaginal bleeding, unspecified (principal)
CPT/HCPCS: 99282; 99284

== ENCOUNTER 2023-08-17 20:16 | Emergency (ER) | payer MEDICARE, OTHER, SELFPAY ==
[2023-08-17 20:25] VITALS: BP 136/88; PULSE 80; RESP 16; TEMP 36.6; O2SAT 98; BMI 29.0
--- NOTE | 2023-08-17 20:56 | ED_ITS ---
HPI - Psych General Time Seen by Provider: 20:56 Date Seen: 08/17/23 Chief Complaint: Psychiatric Problem/Disorder Stated Complaint: mental health Time Seen by Provider: 08/17/23 20:56 Source: patient, RN notes reviewed and old records reviewed Mode of arrival: other (Law enforcement) Limitations: no limitations History of Present Illness HPI Narrative: Tonya is a very pleasant 32-year-old female with a history of depression and anxiety who is brought to the [place] [place] [facility] by the [place] [employer] after her friends contacted 911 with concerns about her mental health. [place] states that she has been very sad since her best friend unexpectedly in March. She notes that she has met somebody new but he had told her that he was not interested in pursuing relationship and this caused her to be even more sad. She notes that she does have suicidal thoughts but she has no plan. She has had suicidal thoughts in the past but never acted on them or had a plan. She is under the care of psychiatrist Dr. Shelia Brian who practices out of [facility] in [facility]. She last saw her in May under current medications were continued at the same dose. Current medications include Abilify, bupropion, and Effexor. She is next due to see Psychiatry in September. She also sees a counselor named Angélica Junior who operates out of [facility]. Tonya lives in [place] and works at [employer]. She does state that she does not have a lot of food in her house and she is hungry. She notes that she does not like going to the grocery store and does not have money at this time. Tonya denies suicidal plan. She denies auditory or visual hallucinations. She does not use alcohol nor drugs. She notes that she does have good friends that are very loving and supportive but they all live [place] of here in [place] or [place]. She lives alone. Denies she has a history of tubal ligation and uterine ablation. Related Data Home Medications Medication Instructions Recorded Confirmed aripiprazole 30 mg tablet 30 mg PO DAILY 12/05/21 08/17/23 bupropion HCl 300 mg 24 hr tablet, 300 mg PO DAILY 12/05/21 08/17/23 extended release fexofenadine 180 mg tablet 180 mg PO QDAY 12/05/21 08/17/23 (María Allergy) omeprazole 20 mg capsule,delayed 20 mg PO DAILY 01/13/22 08/17/23 release melatonin 5 mg tablet 5 mg PO HS PRN 09/11/22 08/17/23 venlafaxine 150 mg 150 mg PO DAILY 07/26/23 08/17/23 capsule,extended release 24 hr Allergies Allergy/AdvReac Type Severity Reaction Status Date / Time azithromycin Allergy Severe Throat Verified 07/26/23 09:04 swelling Review of Systems Status of ROS: Reports: 10 or more systems reviewed and unremarkable except as noted in History and below Const: Denies: fever or chills Eyes: Denies: change in vision ENMT: Denies: throat pain or neck pain Cardio: Denies: chest pain or shortness of breath with exertion Resp: Denies: shortness of breath or cough GI: Denies: abdominal pain : Reports: other (Denies ) Musculo: Denies: neck pain Neuro: Denies: headache PFSH PFSH Medical History Bilateral dry eyes ?H04.123 - Dry eye syndrome of bilateral lacrimal glands (ICD-10) Myopia, bilateral ?H52.13 - Myopia, bilateral (ICD-10) Regular astigmatism, bilateral ?H52.223 - Regular astigmatism, bilateral (ICD-10) Calculus of gallbladder without cholecystitis without obstruction ?K80.20 - Calculus of gallbladder without cholecystitis without obstruction (ICD-10) Hepatic steatosis ?K76.0 - Fatty (change of) liver, not elsewhere classified (ICD-10) Abnormal liver enzymes ?R74.8 - Abnormal levels of other serum enzymes (ICD-10) 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 (ICD-10) Moderate episode of recurrent major depressive disorder ?F33.1 - Major depressive disorder, recurrent, moderate (ICD-10) Mild intellectual disabilities ?F70 - Mild intellectual disabilities (ICD-10) Chronic GERD ?K21.9 - Gastro-esophageal reflux disease without esophagitis (ICD-10) Hyperlipidemia, unspecified ?E78.5 - Hyperlipidemia, unspecified (ICD-10) Autism spectrum disorder ?F84.0 - Autistic disorder (ICD-10) Constipation, unspecified ?K59.00 - Constipation, unspecified (ICD-10) Allergic rhinitis, unspecified ?J30.9 - Allergic rhinitis, unspecified (ICD-10) Depression with anxiety ?F41.8 - Other specified anxiety disorders (ICD-10) Surgical History Perineal abscess (02/2009) ?L02.215 - Cutaneous abscess of perineum (ICD-10) S/P tonsillectomy and adenoidectomy (2014) ?Z90.89 - Acquired absence of other organs (ICD-10) History of tubal ligation (06/2017) ?Z98.51 - Tubal ligation status (ICD-10) Family History Father High cholesterol Maternal Grandmother Diabetes Social History Narrative: Single 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 Very pleasant. Smiling. Eyes are clear. Head is atraumatic normocephalic. Face symmetrical. Appropriate responses and thought process. No blocking of speech. Heart with regular rate and rhythm and lungs are clear. Moving all extremities. Abdomen soft nontender. Makes good eye contact. Const: Vital Signs, click to edit/add: Vital Signs - 24 hr 08/17/23 20:25 Temperature 97.9 F Pulse Rate [Pulse Oximeter] 80 Respiratory Rate 16 Blood Pressure [Ri ght Upper Arm] 136/88 Pulse Oximetry 98 Oxygen Delivery Me thod Room Air Documenting provider has reviewed patient's vital signs: yes Course Course ED Course: At this time Tonya does have suicidal thoughts but notes that she has had this in the past. She has no specific plan. She is receptive to having blood drawn to include CBC, comprehensive panel, salicylates acetaminophen magnesium alcohol TSH and vitamin-D. Will also do drug screen. I have very low suspicion of any illicit drug use. Mental health assessment is scheduled in [place] is also receptive to this. Reevaluation(s) Reevaluation #1: Patient has been very happy with the food we were able to get for her. She just got done with mental health assessment and is feeling better. Vital Signs Vital signs: Initial Vital Signs Temperature 97.9 F 08/17/23 20:25 Temperature Source Temporal Artery Scan 08/17/23 20:25 Pulse Rate 80 08/17/23 20:25 Respiratory Rate 16 08/17/23 20:25 Blood Pressure 136/88 08/17/23 20:25 Blood Pressure Mean 104 08/17/23 20:25 Blood Pressure Position Sitting 08/17/23 20:25 Pulse Oximetry 98 08/17/23 20:25 Oxygen Delivery Method Room Air 08/17/23 20:25 Vital Signs Temperature 97.9 F 08/17/23 20:25 Pulse Rate 80 08/17/23 20:25 Respiratory Rate 16 08/17/23 20:25 Blood Pressure 136/88 08/17/23 20:25 Pulse Oximetry 98 08/17/23 20:25 Oxygen Delivery Method Room Air 08/17/23 20:25 Temperature 97.9 F 08/17/23 20:25 Pulse Rate 80 08/17/23 20:25 Respiratory Rate 16 08/17/23 20:25 Blood Pressure 136/88 08/17/23 20:25 Pulse Oximetry 98 08/17/23 20:25 Oxygen Delivery Method Room Air 08/17/23 20:25 MDM - Psych MDM Narrative Medical decision making narrative: 1. Acute on chronic depression-Tonya will be released home. At this time she expresses suicidal ideation but no suicidal plan intent. She contracts for safety with this examiner. She is also agreeable to the safety plan that Janessa kiln pusher has been able to supply. I did tell Tonya to return to the emergency room for any worsening symptoms she does agree to do that. I do encourage her to go to the grocery store even though she does not like going. We do send her home with chips, of some cereal and a sandwich. 2. Disposition-home at this time. Return as needed for worsening symptoms. Currently pending are TSH and vitamin-D. Patient gives me permission to call and leave a message on her phone. She states that she is going home, taking out her contacts and going to bed she is very tired. She agrees to return for worsening symptoms. Medical Records Attestation: I reviewed the patient's medical records. Lab Data Attestation: I reviewed the patient's lab results. Labs: Lab Results 08/17/23 08/17/23 Range/Units 21:07 21:15 WBC 10.83 (4.50-11.00) K/uL RBC 4.01 (4.00-5.20) m/uL Hgb 11.4 L (12.0-16.0) gm/dL Hct 35.0 (33.0-51.0) % MCV 87 (80-100) fL MCH 28 (26-34) pg MCHC 33 (32-36) gm/dL RDW Coeff of Vandana 14.3 (11.5-15.5) % Plt Count 368 (140-440) K/uL Neut % (Auto) 62.5 (42.0-72.0) % Lymph % (Auto) 26.4 (20-44) % Bureau % (Auto) 6.4 (0.0-11.0) % Eos % (Auto) 4.0 (0.0-7.0) % Baso % (Auto) 0.5 (0.0-3.0) % Neut # (Auto) 6.78 (1.7-7.0) K/uL Lymph # (Auto) 2.86 (0.90-2.90) K/uL Bureau # (Auto) 0.70 (0.00-0.90) K/UL Eos # (Auto) 0.43 (0.00-0.50) K/uL Baso # (Auto) 0.05 (0.00-0.30) K/uL Abs Immat Gran (auto) 0.02 (0.00-0.30) K/uL Imm/Tot Granulo (auto) 0.2 % Sodium 138 (135-149) mmol/L Potassium 3.7 (3.6-5.1) mmol/L Chloride 105 (96-114) mmol/L Carbon Dioxide 28 (20-32) mmol/L Anion Gap 5 L (7-15) mEq/L BUN 16 (5-24) mg/dL Creatinine 0.9 (0.5-1.5) mg/dL Estimated Creat Clear 85.65 Estimated GFR 86 ml/min Glucose 90 (60-115) mg/dL Calcium 9.2 (8.4-10.6) mg/dL Magnesium 2.2 (1.5-2.6) mg/dL Total Bilirubin 0.2 (0.1-1.5) mg/dL AST 22 (12-35) U/L ALT 19 (4-35) U/L Alkaline Phosphatase 83 (40-150) U/L Total Protein 7.1 (6.0-8.3) g/dL Albumin 4.1 (3.3-5.0) g/dL Urine Color Yellow (Yellow) Urine Appearance Slightly Cloudy A (Clear) Urine pH 6.0 (5.0-8.5) Ur Specific [place] 1.025 (1.000-1.030) Urine Protein Negative (Negative) Urine Glucose (UA) Negative (Negative) Urine Ketones Trace A (Negative) Urine Blood Trace-intact A (Negative) Urine Nitrite Negative (Negative) Urine Bilirubin Negative (Negative) Urine Urobilinogen 0.2 (0.2-1.0) Ur Leukocyte Esterase Negative (Negative) Urine RBC 0-2 (0-2) Urine WBC 0-2 (0-5) Ur Squamous Epith Cells Few (None-Few) Urine Bacteria Few A (None) Salicylates < 1.0 L (1.0-10) mg/dL Urine Opiates Screen Negative (Negative) Ur Oxycodone Screen Negative (Negative) Urine Methadone Screen Negative (Negative) Acetaminophen < 10.0 L (10.0-30.0) ug/mL Ur Barbiturates Screen Negative (Negative) U Tricyclic Antidepress Negative (Negative) Ur Phencyclidine Scrn Negative (Negative) Ur Amphetamines Screen Negative (Negative) U Methamphetamines Scrn Negative (Negative) U Benzodiazepines Scrn Negative (Negative) Urine Cocaine Screen Negative (Negative) U Marijuana (THC) Screen Negative (Negative) Ur Drug Screen Comment See Note Ethyl Alcohol < 0.01 L (0.01-0.03) % Discharge Plan Discharge Clinical Impression: Depression with suicidal ideation Patient Disposition: Home, Self-Care Condition: Improved Additional Instructions: Please follow the safety plan. Take care of yourself. Return to the emergency room for worsening symptoms. Prescriptions: No Action bupropion HCl 300 mg tablet extended release 24 hr 300 mg PO DAILY aripiprazole 30 mg tablet 30 mg PO DAILY fexofenadine [María Allergy] 180 mg tablet 180 mg PO QDAY omeprazole 20 mg capsule,delayed release(DR/EC) 20 mg PO DAILY melatonin 5 mg tablet 5 mg PO HS PRN venlafaxine 150 mg capsule,extended release 24hr 150 mg PO DAILY Follow Up/Referrals: Provider,Not a Local [Primary Care Provider] - Stand Alone Forms: [employer] Info Instructions
[2023-08-17 21:25] LABS: Appearance Urine Slightly Cloudy (Clear); Bilirubin Urine Negative (Negative); Blood Urine Trace-intact (Negative); Color Urine Yellow (Yellow); Glucose Urine Negative (Negative); Ketones Urine Trace (Negative); Leukocyte Esterase Urine Negative (Negative); Nitrite Urine Negative (Negative); Protein Urine Negative (Negative); Specific Gravity Urine 1.025 (1.000-1.030); Urobilinogen Urine 0.2 (0.2-1.0)
[2023-08-17 21:25] LABS: Basophils Absolute Auto 0.05 K/uL (0.00-0.30); Basophils Percent Auto 0.5 % (0.0-3.0); Eosinophils Absolute Auto 0.43 K/uL (0.00-0.50); Hemoglobin* 11.4 gm/dL (12.0-16.0); Immature Granulocytes Abs Auto 0.02 K/uL (0.00-0.30); Immature Granulocytes Pct Auto 0.2 %; Lymphocytes Absolute Auto 2.86 K/uL (0.90-2.90); Lymphocytes Percent Auto 26.4 % (20-44); Mean Corpuscular HGB Conc 33 gm/dL (32-36); Mean Corpuscular Hemoglobin 28 pg (26-34); Mean Corpuscular Volume 87 fL (80-100); Monocytes Percent Auto 6.4 % (0.0-11.0); Neutrophils Absolute Auto 6.78 K/uL (1.7-7.0); Neutrophils Percent Auto 62.5 % (42.0-72.0); Platelet Count* 368 K/uL (140-440); RDW Coefficient of Variation % 14.3 % (11.5-15.5); Red Blood Count 4.01 m/uL (4.00-5.20); White Blood Count* 10.83 K/uL (4.50-11.00)
[2023-08-17 21:29] LABS: Slide Review Reflex No
[2023-08-17 21:36] LABS: Albumin* 4.1 g/dL (3.3-5.0)
[2023-08-17 21:36] LABS: Amphetamine Screen Urine Negative (Negative); Barbiturate Screen Urine Negative (Negative); Benzodiazepines Screen Urine Negative (Negative); Cannabinoid Screen Urine Negative (Negative); Cocaine Screen Urine Negative (Negative); Methadone Screen Urine Negative (Negative); Methamphetamines Screen Urine Negative (Negative); Opiate Screen Urine Negative (Negative); Oxycodone Screen Urine Negative (Negative); Phencyclidine Screen Urine Negative (Negative); Tricyclic Antidepressant Urine Negative (Negative)
[2023-08-17 21:37] LABS: Chloride* 105 mmol/L (96-114); Potassium* 3.7 mmol/L (3.6-5.1); Sodium* 138 mmol/L (135-149)
[2023-08-17 21:39] LABS: Alkaline Phosphatase* 83 U/L (40-150); Anion Gap 5 mEq/L (7-15); Aspartate Amino Transferase* 22 U/L (12-35); Bilirubin Total* 0.2 mg/dL (0.1-1.5); Carbon Dioxide* 28 mmol/L (20-32); Creatinine* 0.9 mg/dL (0.5-1.5); Est. Creatinine Clearance* 85.65; Estimated Glomerular Filt Rate 86 ml/min; Total Protein* 7.1 g/dL (6.0-8.3)
[2023-08-17 21:40] LABS: Alanine Aminotransferase* 19 U/L (4-35); Blood Urea Nitrogen* 16 mg/dL (5-24); Calcium* 9.2 mg/dL (8.4-10.6); Glucose* 90 mg/dL (60-115); Magnesium* 2.2 mg/dL (1.5-2.6)
[2023-08-17 21:49] LABS: Bacteria Urine Few; RBC Urine 0-2 (0-2); Squamous Epithelial Cell Urine Few (None-Few); WBC Urine 0-2 (0-5)
[2023-08-17 22:02] LABS: Acetaminophen* < 10.0 ug/mL (10.0-30.0); Ethanol* < 0.01 % (0.01-0.03); Salicylate* < 1.0 mg/dL (1.0-10)
[2023-08-17 22:19] LABS: Vitamin D 25 Hydroxy* 38 ng/mL (30-80)
[2023-08-17 22:37] VITALS: PULSE 74; RESP 16; O2SAT 99
== END 2023-08-17 22:37 | disposition home or self-care (01) ==
PROVIDERS: Emergency Provider Family Medicine
DX: F32.A Depression, unspecified (principal); R45.851 Suicidal ideations
CPT/HCPCS: 36415; 80053; 80143; 80179; 80306; 81001; 81003; 82077; 82306; 83735; 84443; 85025; 87086; 99284

== ENCOUNTER 2023-10-05 11:31 | Emergency (ER) | payer MEDICARE, OTHER, SELFPAY ==
[2023-10-05 12:00] VITALS: BP 123/84; PULSE 104; RESP 16; TEMP 36.6; O2SAT 96; BMI 28.7
--- OUTSIDE RECORDS SUMMARY | 2023-10-05 12:38 | XMS_ITS | Clinical Summary ---
Author Name Unknown Organization [facility] Address [place], [place] [address] Care Team Providers Care Emery Wheel Worker Name Role Phone Tell, Jil Boyer RN Unavailable [phone] Haley Castorena MD Primary Care Provider Allergies Active Allergy Reactions Criticality Noted Date Comments Cats (Fur, Dander, Saliva) *Unknown 11/08/2009 Patient reports she no longer experiences congestion with exposure. Norgestrel-Ethinyl Estradiol Emotional Disturbance 03/31/2012 Cramps and pms symptoms Dust Mites Runny Nose 2009 Pollen Extracts Runny Nose 02/03/2012 Ragweed Runny Nose 2009 Unlisted Allergen (Include Detail In Comments) *Unknown 07/02/2010 Perfumes-strong fragrances-sneezing Azithromycin Other - Describe In Comment Field 12/01/2014 Left side went numb per pt Medications Medication Sig Dispensed Refills Start Date End Date Status buPROPion (WELLBUTRIN XL) 300 mg Extended-Release tablet 300 mg. 07/29/2017 Active fexofenadine (TEMO) 180 mg tablet every day 12/05/2021 Active venlafaxine (EFFEXOR XR) 150 mg Extended-Release capsule Take 150 mg by mouth. 09/25/2022 Active omeprazole (PRILOSEC) 20 mg Delayed-Release capsuleIndicatio ns:Chronic GERD Take 1 Capsule (20 mg) by mouth once daily before a meal. 100 Capsule 3 09/30/2022 Active melatonin 10 mg chew Chew 10 mg by mouth at bedtime. Active ARIPiprazole (ABILIFY) 20 mg tablet Take 20 mg by mouth once daily. 09/21/2023 Active ARIPiprazole (ABILIFY) 30 mg tablet 30 mg. 04/27/2018 09/29/2023 Discontinued( Duplicate therapy (E-cancel not sent)) traZODone (DESYREL) 50 mg tablet Take 2 tablets by mouth at bedtime. 45 tablet 5 07/06/2018 09/29/2023 Discontinued( *Patient states no longer taking) cephalexin (KEFLEX) 500 mg capsuleIndicatio ns:Dermoid cyst of scalp Take 1 Capsule (500 mg) by mouth four times daily for 5 days. 20 Capsule 09/29/2023 10/04/2023 Active Problems Problem Noted Date Diagnosed Date Pap smear for cervical cancer screening 09/16/19 22 Overview: 09/2021 NIL/HPV Negative. PLAN: Pap/HPV due 09/2026 Dry eyes, bilateral 03/07/2020 Regular astigmatism, bilateral 11/24/2018 Myopia, bilateral 11/24/2018 H/O tubal ligation 07/20/2018 Calculus of gallbladder with out cholecystitis without obstruction 08/09/2017 Elevated liver enzymes 07/24/2017 Hepatic steatosis 07/24/2017 Abnormality of rib determined by CT - recheck 201807/23/2017 Mild intellectual disability 11/13/2016 Moderate episode of recurrent major depressive d isorder 11/13/2016 Chronic GERD 11/12/2016 Autism spectrum disorder 01/28/2016 Hyperlipidemia, unspecified 01/28/2016 Unspecified constipation 08/24/2009 Allergic rhinitis, cause unspecified 11/21/2007 Resolved Problems Problem Noted Date Diagnosed Date Resolved Date premature rupture of membranes (PPROM) delivered, current hospitalization 06/25/2017 07/23/2017 Choroid plexus cyst 03/02/2017 04/16/20 17 Rh negative, antepartum 11/26/201612/2017 Supervision of high risk pre gnancy, antepartum 11/12/2016 07/23/2017 Overview: Provider: Tony Lomeli MD - Please call for delivery Patient planning to have baby adopted Desires tubal ligation - consent signed 06/12/17 Patient does NOT want FOB present at hospital Sister with history of transposition of great arteries. Will do level 2 US and echo at 20 weeks - normal Sex/Name: Girl! FOB: Mahamed - no longer involved 3rd trimester Breast/bottle - bottle Family Planning/Tubal - wants tubal - consent signed 06/12/17 Labor/Delivery - open to options for pain medications Post delivery for baby (Vit K, eye ointment, Hep B) ok Baby care - baby will be adopted Circumcision N/A Bipolar depression 01/28/2016 7 Chronic rhinitis 02/03/2012 11/12/2016 Hypertrophy of inferior nasal turbinate 02/03/2012 11/12/2016 Depression 08/24/2009 04/19/2010 Encounter for long-term (cur rent) use of other medications 07/09/2009 07/23/2017 Mood Disorder, NOS; rule out dysthymic disorder, major depression and bipolar disorder 07/09/2009 04/19/2010 Unspecified personality disorder 07/06/2009 11/13/2016 Bipolar 1 disorder 06/08/2009 7 Pervasive developmental disorder, unspecified 04/18/20 09 11/13/2016 Major depressive disorder, r ecurrent episode, unspecified 09/14/2006 06/08/2009 Adjustment disorder with anxiety 03/29/2007 High risk , antepartum 06/12/2017 Medication exposure during f irst trimester of 07/23/2017 Choroid plexus cyst of fetus on ultrasound 07/23/2017 Encounters Date Type Department Care Team Description 09/29/2023 2:10 PM CDT Office Visit [facility] [address] [place] [address] Bertrand Anderson MD Derm Problem (Cyst she thinks in the back of her head) 09/29/2023 Travel 09/18/2023 9:30 AM CDT Office Visit [facility] [address] [place] [address] Terri Orosco PA Gi Problem (diarrhea last few weeks- ) 09/18/2023 Travel 09/16/2023 Patient Outreach [address] [address] Jil Anderson RN [facility] (Call to member) 08/04/2023 2:10 PM CDT Office Visit [facility] [address] [place] [address] Brittani Fontana PA Vaginal Problem (Itching and swelling, no pain) 08/04/2023 Travel 07/08/2023 Patient Outreach [facility] [address] [place] [id number] Piedad Hurst [facility] (Self Assessment sent to the member.) 07/08/2023 Patient Outreach [facility] [address] [place] [address] Piedad Hurst [facility] (Provider engagement letter sent.) 07/07/2023 Patient Outreach [facility] [address] [place] [address] Jil Anderson RN [facility] (Admin Activity) from Last 3 Months Immunizations Name Administration Dates Next Due COVID-19 vaccine (VideoJax-Bio NTech 30mcg/0.3mL) 12YO+ BIVALENT PF, MDV 03/10/2022 COVID-19 vaccine (Pfizer-Bio NTech 30mcg/0.3mL) PF, MDV 2020,08/02/2020 Human Papilloma Virus Vaccine 03/16/2007, 007,09/07/2006 03/11/2007 Influenza Virus, Unspecified 01/17/2020,06/11/19 12,05/14/2006 Influenza, High-dose Inactivated 01/17/2020 Influenza, IIV3 (Age >=3 years) 06/11/2011,05/14 Influenza, IIV4 03/10/2022,,02/05/2019,03/18,01/15/2017 Influenza,CCIIV4 PRESERV FREE 03/04/2023 Tdap 05/15/2017,06/11/2011 Family History Medical History Relation Name Comments Unknown Daughter Adopted out Hypertension Father Dayron No Known Problems Maternal Grandfather Joby Arthritis Maternal Grandmother Reina Diabetes Maternal Grandmother Reina Glaucoma Maternal Grandmother Reina Allergies Mother Vani Hyperlipidemia Mother Vani Psychiatric illness Mother Vani Hyperlipidemia Paternal Grandfather Ricardo Hyperlipidemia Paternal Grandmother Susie Uterine cancer Paternal Grandmother Susie Allergies Sister Joyce Celiac disease Sister Joyce Heart defect Sister Joyce Transposition o f arteries Psychiatric illness Sister Joyce Anesthesia Problem No Family History Relation Name Status Comments Daughter Alive Father Dayron Alive Maternal Grandfather Joby Alive Maternal Grandmother Reina Mother Vani Alive Paternal Grandfather Ricardo Alive Paternal Grandmother Susie Alive Sister Joyce Alive Social History Tobacco Use Types Packs/Day Years Used Date Smoking Tobacco: Never Smokeless Tobacco: Never Tobacco Cessation:Counseling Given: Yes Alcohol Use Standard Drinks/Week Comments Yes 1 (1 standard drink = 0.6 oz pur e alcohol) occasionally PHQ-2 Answer Date Recorded PHQ-2 TOTAL SCORE 2 09/30/2022 Social Connections Answer Date Recorded Frequency of Communication with Friends and Fami ly 0 05/22/2023 Financial Resource Strain Answer Date R ecorded Difficulty of Paying Living Expenses 3 05/22/2023 Difficulty of Paying Living Expenses Not on file 05/22/2023 Food Insecurity Answer Date Recorded Worried About Running Out of Food in the Last Ye ar 1 05/22/2023 Transportation Needs Answer Date Record ed Lack of Transportation (Medical) 1 05/22/2023 Housing Stability Answer Date Recorded Unable to Pay for Housing in the Last Year 1 05/22/2023 Sex and Gender Information Value Date Recorded Sex Assigned at Not on file Gender Identity Not on file Sexual Orientation Not on file Obstetrics History Para Term AB IAB SAB Ectopic Multiple Livin g Live Births 1 1 0 1 0 0 0 0 0 0 0 Date Outcome GA Total Labor Labor/2nd/3rd Weight Sex Delivery Anes PTL Gloria A1 A5 Name Cl in 06/26 36w 0d F Vag PETER SON,B G ALTAGRACIA EY Delivery Location:[facility] Last Filed Vital Signs Vital Sign Reading Time Taken Comments Blood Pressure 118/68 09/29/2023 2:07 PM CDT Pulse 88 09/29/2023 2:07 PM CDT Temperature 36.5 ??C (97.7 ??F) 05/22/2023 7:44 AM CS T Respiratory Rate 16 07/20/2018 11:4 4 AM INSTRUMENTATION TECHNICIAN Oxygen Saturation 98% 09/18/2023 9:28 AM CDT Inhaled Oxygen Concentration - - Weight 80.7 kg (177 lb 14.4 oz) 09/29/2023 2:07 PM CDT Height 170 cm (5' 6.93) 09/30/2022 10: 08 AM CDT Body Mass Index 27.92 09/30/2022 10:08 AM CDT Plan of Treatment Upcoming Encounters Date Type Department Care Team (Late st Contact Info) Description 01/06/2024 9:20 AM CDT Office Visit [facility] [address] [place] [address] Katerina Forman PA [address] [place], [place] [id number] Health Maintenance Due Date Last Done Comments COVID-19 vaccine series ( season) 2023 03/10/2022, 2020, 08/02/2020 BMI (ht and wt on same day) for age 18+ 10/01/2023 09/30/2022, 06/05/2022, 12/25/2021, Additional history exists Depression screening for age 12+ 10/01/2023 09/30/2022, 10/17/2021, 10/29/2020, Additional history exists Influenza for age 9-49 01/17/2024 3, 03/10/2022, 01/17/2021, Additional history exists Pap test for age 21-65 09/19/2026 2, 09/19/2021, 07/20/2018, Additional history exists Tetanus booster 05/15/2027 05/15/2017, 06/11/2011 Hepatitis C screening for age 18-79 Completed 04/16/2017 Tdap Completed 05/15/2017, 06/11/2011 HIV for age 15-65 Completed 07/20/2018, , 10/25/2015 Pneumococcal series for age 6-64 Aged Out No longer eligible based on patient's age to complete this topic Goals Goal Patient Goal Type Associated Problems Recent Progress Patient-Stated? Author [place] CC: UTR General No TellJil RN Note: Goal Statement: Tonya will be offered a health risk assessment as evidenced by documentation of attempted outreach. Start date: 07/07/2023 Goal end date: 07/05/2024 Goal priority: High Initial contact attempts documented : unsuccessful attempt to complete annual reassessment documented in note dated Challenges to goal achievement:No answer, left voicemail requesting return call. Member not responding to calls or correspondence. UTR Actions: Continue attempts to reach member at number of record Health Plan Unable to Reach letter sent to member Health Plan Provider Engagement letter sent Primary Care Provider confirmed: Yes Name of PCP: Haley Castorena, Provider Engagement Letter (Enhanced Only) sent date: 07/07/2023 Sent method: (EMR/mail/fax/n/a) mailed Member Unable to Reach Letter sent date: 07/01/2023 Sent method: (EMR/mail/fax/n/a) mailed Leave behind document/Self Report Assessment mailed date: 07/07/2023 PLAN: Attempt outreach/engagement in 6 months Continue outreach to contact and engage member per health plan requirement. Jil Anderson RN .................... 07/07/2023 12:03 PM Biannual Review Contact Attempts Date Comments - include contact type Continue attempts to reach member via phone Outreach to legal guardian/emergency contact Outreach to primary care clinic/provider Outreach to pharmacy or other community provider Contacted waiver case resource manager Contacted financial worker Conducted other research (such as health plan claims reports, MNITs or Epic record review) HRA scheduled #1 #2 #3 Procedures Procedure Name Priority Date/Time Associated Diagnosis Comments TISSUE TRANSGLUTAMINASE IGA Routine 09/18/2023 10:15 AM CDT Acute diarrhea Family history of celiac disease CBC WITH AUTO DIFFERENTIAL Routine 09/18/2023 10:15 AM CDT Acute diarrhea CELIAC CASCADE PANEL Routine 09/18/2023 10:15 AM CDT Acute diarrhea Family history of celiac disease CBC WITH AUTO DIFFERENTIAL Routine 09/18/2023 10:15 AM CDT Acute diarrhea BASIC METABOLIC PANEL Routine 09/18/2023 10:15 AM CDT Acute diarrhea PATCH WASHER THIN PREP PAP SCREEN IMAGED Routine 09/19/2021 4:58 PM CDT Screening for malignant neoplasm of cervix ANTI HIV 1/2 Routine 07/20/2018 12:36 PM INSTRUMENTATION TECHNICIAN Screen for STD (sexually transmitted disease) ANTI HCV Routine 04/16/2017 1:59 PM INSTRUMENTATION TECHNICIAN Supervision of high risk , antepartum from Last 3 Months or Most Recently Relevant to Health Maintenance Results * CELIAC CASCADE PANEL (09/18/2023 10:15 AM CDT) Pathologist [facility] IGA 280.20 84.50 - 499.00 mg/dL 09/21/2023 8:28 AM CDT [facility] Blood BLOOD SPECIMEN / Unknown Venipuncture / Unknown 09/18/2023 10:15 AM CDT 09/18/2023 10:16 AM CDT Narrative [facility] - 09/21/2023 8:28 AM CDT Reflexed to Tissue Transglutaminase IgA Terri QUINTEROS SEND OUTS [facility] [address] [place] [address], * (ABNORMAL) CBC WITH AUTO DIFFERENTIAL (09/18/2023 10:15 AM CDT) Pathologist [facility] WHITE BLOOD COUNT 10.5 4.5 - 11.0 thou/cu mm 09/18/2023 10:22 AM CDT [facility] RED BLOOD COUNT 4.29 4.00 - 5.20 mil/cu mm 09/18/2023 10:22 AM CDT [facility] HEMOGLOBIN 12.3 12.0 - 16.0 g/dL 09/18/2023 10:22 AM CDT [facility] HEMATOCRIT 37.2 33.0 - 51.0 % 09/18/2023 10:22 AM CDT [facility] MCV 87 80 - 100 fL 09/18/2023 10:22 AM CDT [facility] MCH 28.7 26.0 - 34.0 pg 09/18/2023 10:22 AM CDT [facility] MCHC 33.1 32.0 - 36.0 g/dL 09/18/2023 10:22 AM CDT [facility] RDW 14.4 11.5 - 15.5 % 09/18/2023 10:22 AM CDT [facility] PLATELET COUNT 416 140 - 440 thou/cu mm 09/18/2023 10:22 AM CDT [facility] MPV 9.3 6.5 - 11.0 fL 09/18/2023 10:22 AM CDT [facility] % NEUT 72.8 % 09/18/2023 10:22 AM CDT [facility] % LYMPH 19.8 % 09/18/2023 10:22 AM CDT [facility] % MONO 5.9 % 09/18/2023 10:22 AM CDT [facility] % EOS 1.1 % 09/18/2023 10:22 AM CDT [facility] % BASO 0.4 % 09/18/2023 10:22 AM CDT [facility] ABSOLUTE NEUTROPHILS 7.7(H) 1.7 - 7.0 thou/cu mm 09/18/2023 10:22 AM CDT [facility] ABSOLUTE LYMPHOCYTES 2.1 0.9 - 2.9 thou/cu mm 09/18/2023 10:22 AM CDT [facility] ABSOLUTE MONOCYTES 0.6 <0.9 thou/cu mm 09/18/2023 10:22 AM CDT [facility] ABSOLUTE EOSINOPHILS 0.1 <0.5 thou/cu mm 09/18/2023 10:22 AM CDT [facility] ABSOLUTE BASOPHILS 0.0 <0.3 thou/cu mm 09/18/2023 10:22 AM CDT [facility] Blood BLOOD SPECIMEN / Unknown Venipuncture / Unknown 09/18/2023 10:15 AM CDT 09/18/2023 10:16 AM CDT Terri QUINTEROS HEMATOLOGY Performing Organization Address [facility]/ZIP Co de Phone Number [facility] [address] [place] [address], * TISSUE TRANSGLUTAMINASE IGA (09/18/2023 10:15 AM CDT) TISSUE TRANSGLUTAMINASE IGA <1.2 <4.0 U/ml 09/21/2023 1:23 PM CDT [facility] Comment:Celiac disease unlik matilde unless IgA deficient. Recommend IgA levels if not already performed. Blood BLOOD SPECIMEN / Unknown Venipuncture / Unknown 09/18/2023 10:15 AM CDT 09/18/2023 10:16 AM CDT Narrative [facility] - 09/21/2023 1:23 PM CDT Negative ?<4.0 Weak Positive ?? 4-10 Positive ?>10.0 This test should not be solely relied upon to establish a diagnosis of celiac disease. Affected individuals who have been on a gluten-free diet prior to testing may have a negative result. These results were obtained using the [employer] Quanta Lite R h-tTG IgA NIMA assay. ??Values obtained from other manufacturers' assay methods may not be used interchangeably. Terri QUINTEROS SEND OUTS Performing Organization Address City/[facility]/ZIP Co de Phone Number [facility] [address] [place] [address], * (ABNORMAL) BASIC METABOLIC PANEL (09/18/2023 10:15 AM CDT) SODIUM 140 136 - 145 mmol/L 09/18/2023 6:00 PM CDT [facility] POTASSIUM 4.4 3.5 - 5.1 mmol/L 09/18/2023 6:00 PM CDT [facility] CHLORIDE 105 98 - 107 mmol/L 09/18/2023 6:00 PM CDT [facility] CO2,TOTAL 25 22 - 29 mmol/L 09/18/2023 6:00 PM CDT [facility] ANION GAP 10 5 - 18 09/18/2023 6:00 PM CDT [facility] GLUCOSE 90 70 - 99 mg/dL 09/18/2023 6:00 PM CDT [facility] CALCIUM 10.0 8.6 - 10.0 mg/dL 09/18/2023 6:00 PM CDT [facility] BUN 13 6 - 20 mg/dL 09/18/2023 6:00 PM CDT [facility] CREATININE 0.90 0.50 - 0.90 mg/dL 09/18/2023 6:00 PM T [facility] BUN/CREAT RATIO 14 10 - 20 6:00 PM T [facility] eGFR 86(L) >90 mL/min/1.7 3m2 09/18/2023 6:00 PM CDT [facility] Comment:As of 2021, eG FR is calculated by the CKD-EPI creatinine equation without race adjustment. ??eGFR can be influenced by muscle mass, exercise, and diet. ??The reported eGFR is an estimation only and is only applicable if the renal function is stable. Blood BLOOD SPECIMEN / Unknown Venipuncture / Unknown 09/18/2023 10:15 AM CDT 09/18/2023 10:16 AM CDT Terri QUINTEROS CHEMISTRY [facility] [address] [place] [address], * PATCH WASHER THIN PREP PAP SCREEN IMAGED (09/19/2021 4:58 PM CDT) Case Report Gynecologic Cytology Report ? Case: [id number] ? Authorizing Provider: ??Greg, Prerna Lau, PA ?Collected: ? 09/19/2021 1658 ? Ordering Location: ? [facility] ?? Received: ?09/19/2021 1713 ? Clinic ? First Screen: ?Luisito, Columba ? Pathologist: ? Pradip Daniel Jr., ? MD ? Specimen: ?PATCH WASHER ThinPrep Vial Screening, Cervical ? 10/08/2021 12:40 PM CDT [facility] INTERPRETATION/ RESULT NEGATIVE FOR INTRAEPITHELIAL LESION OR MALIGNANCY (NIL) (none) 10/08/2021 12:40 PM CDT [facility] R NON-NEOPLASTIC FINDING(S) Reactive cellular changes associated with inflammation/repa ir 10/08/2021 12:40 PM CDT [facility] SPECIMEN ADEQUACY Satisfactory for evaluation Endocervical component present 10/08/2021 12:[address] [facility] HPV REQUEST HPV and PAP 10/08/2021 12:40 PM CDT [facility] Date of LMP hormonally suppressed 10/08/2021 12:40 PM CDT [facility] Last Pap Date 07/20/18 10/08/2021 12:40 PM CDT [facility] Last Pap Result NIL 12:40 PM CDT [facility] Abnormal Pap or [place] Bx in last 5 years No 10/08/2021 12:40 PM CDT [facility] Menstrual Status Hormonally Suppressed 10/08/2021 12:40 PM CDT [facility] [place] Bx Done Today No 10/08/2021 12:40 PM CDT [facility] Additional Information None given 10/08/2021 12:40 PM CDT [facility] Comment: Cytology is screened at [facility], Central Laboratory - [address], [place] [address] and [facility] - [address] [place] [address], [place] [address] and [facility] - [address] [place] [address] Interpreted at [facility] - [address] [place] [address], [place] [address] Automated Review Successful 10/08/2021 12:40 PM CDT [facility] Comment:Specimen processed s uccessfully by automated retort engineer device, ThinPrep Imaging System, [employer] ANCILLARY TESTING PATCH WASHER HPV Ordered, Please see separate report 10/08/2021 12:40 PM CDT [facility] Note The pap test is a screening technique, not a diagnostic procedure. It is used primarily to screen for squamous cancers and precursor lesions. Published studies have shown that it is subject to both false negative and false positive results. The pap test should not be used as the sole means to diagnose or exclude pre-malignant and malignant lesions. 10/08/2021 12:40 PM CDT [facility] Other (Cervical) Non-Blood / Unknown 09/19/2021 4:58 PM CDT 09/19/2021 5:13 PM CDT Prerna QUINTEROS PATHOLOGY/CYTOLOGY Performing Organization Address City/[facility]/ZIP Co de Phone Number [facility] [address] [place] [address], * ANTI HIV 1/2 (07/20/2018 12:36 PM INSTRUMENTATION TECHNICIAN) HIV-1/HIV-2 ANTIBODY Non-Reacti ve Non-Reacti ve 07/20/2018 7:14 PM INSTRUMENTATION TECHNICIAN [facility] Comment:HIV-1 p24 and HIV-1/ HIV-2 Ab not detected. Blood BLOOD SPECIMEN / Unknown Butterfly / Unknown 07/20/2018 12:36 PM INSTRUMENTATION TECHNICIAN 07/20/2018 12:36 PM INSTRUMENTATION TECHNICIAN Tony Lomeli MD SEND OUTS [facility] [address] [place] [address], * ANTI HCV (04/16/2017 1:59 PM INSTRUMENTATION TECHNICIAN) HEPATITIS C ANTIBODY Non-Reacti ve Non-Reacti ve 04/16/2017 6:55 PM INSTRUMENTATION TECHNICIAN [facility] Blood BLOOD SPECIMEN / Unknown Venipuncture / Unknown 04/16/2017 1:59 PM INSTRUMENTATION TECHNICIAN 04/16/2017 1:59 PM INSTRUMENTATION TECHNICIAN Narrative [facility] - 04/16/2017 6:55 PM INSTRUMENTATION TECHNICIAN Antibodies to HCV not detected; does not exclude the possibility of exposure to HCV. Tony Lomeli MD SEND OUTS [facility] [address] [place] [address], from Last 3 Months or Most Recently Relevant to Health Maintenance Additional Health Concerns Infection Onset Date Last Indicated Rule-Out Stool Pathogen 09/18/2023 09/18/19 24 Advance Directives * Full Code (Latest Code Status on File) Date Activated Date Inactivated Comments 06/26/2017 12:41 AM 06/27/2017 4:19 PM * Full Code Date Activated Date Inactivated Comments 06/25/2017 9:25 PM 06/26/2017 12:41 AM * Full Code Date Activated Date Inactivated Comments 06/25/2017 1:06 PM 06/25/2017 9:25 PM * Full Code Date Activated Date Inactivated Comments 06/25/2017 11:19 AM 06/25/2017 1:06 PM * Full Code Date Activated Date Inactivated Comments 2009 3:11 PM 08/27/2009 7:09 PM Care Teams Emery Wheel Worker Relationship Specialty Start [place] [address] [place] [address] PCP - General Family Practice 07/07/23 Jil Anderson, RN [address] [place] [address] [facility] Care Coordination Fourchette Sewer 06/28/19 Ronda Mendoza MA, [facility] [address] [place] [address] [address] [place] [address] Licensed Professional Clinical Counselor 08/11/17
--- NOTE | 2023-10-05 12:46 | ED_ITS ---
HPI - General Adult General Date Seen: 10/05/23 Chief complaint: Psychiatric Problem/Disorder Stated complaint: suicidal ideation Time Seen by Provider: 10/05/23 12:29 Source: patient, RN notes reviewed and old records reviewed Mode of arrival: ambulatory Limitations: no limitations History of Present Illness HPI narrative: Patient is a 33-year-old woman with a history of depression, suicidal ideation, seen here last at the beginning of August and referred for outpatient management. She does have a psychiatrist who she has seen for she says 10-15 years, had an appointment with her within the past couple of weeks. Apparently she has been on Abilify for quite some time, about a month ago decided to stop it. She says that she told her psychiatrist this, her psychiatrist told her she should not stop it but should at a minimum taper and prescribed a lower dose for her, but she says she has not started taking that. She said she was reading a lot about side effects, feels that she is having significant hair loss, and just did not want to be on the Abilify any more. She does tell me she feels like her depression is worse since then, she has more emotionally labile. She says she went to work today, wanted to leave and they told her she could not leave, she then felt like she was more depressed and suicidal. She does note passive suicidal ideation for quite some time, she has never had a specific plan. She denies tobacco alcohol or drug use. No other medication change. She lives alone, does have supportive friends in the area. She has another appointment with her psychiatrist in October for follow-up. She has an upcoming appointment with her therapist in the next couple of weeks. Related Data Home Medications Medication Instructions Recorded Confirmed aripiprazole 30 mg tablet 30 mg PO DAILY 12/05/21 08/17/23 bupropion HCl 300 mg 24 hr tablet, 300 mg PO DAILY 12/05/21 08/17/23 extended release fexofenadine 180 mg tablet 180 mg PO QDAY 12/05/21 08/17/23 (María Allergy) omeprazole 20 mg capsule,delayed 20 mg PO DAILY 01/13/22 08/17/23 release melatonin 5 mg tablet 5 mg PO HS PRN 09/11/22 08/17/23 venlafaxine 150 mg 150 mg PO DAILY 07/26/23 08/17/23 capsule,extended release 24 hr Allergies Allergy/AdvReac Type Severity Reaction Status Date / Time azithromycin Allergy Severe Throat Verified 10/05/23 11:59 swelling [facility] Medical History Bilateral dry eyes ?H04.123 - Dry eye syndrome of bilateral lacrimal glands (ICD-10) Myopia, bilateral ?H52.13 - Myopia, bilateral (ICD-10) Regular astigmatism, bilateral ?H52.223 - Regular astigmatism, bilateral (ICD-10) Calculus of gallbladder without cholecystitis without obstruction ?K80.20 - Calculus of gallbladder without cholecystitis without obstruction (ICD-10) Hepatic steatosis ?K76.0 - Fatty (change of) liver, not elsewhere classified (ICD-10) Abnormal liver enzymes ?R74.8 - Abnormal levels of other serum enzymes (ICD-10) 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 (ICD-10) Moderate episode of recurrent major depressive disorder ?F33.1 - Major depressive disorder, recurrent, moderate (ICD-10) Mild intellectual disabilities ?F70 - Mild intellectual disabilities (ICD-10) Chronic GERD ?K21.9 - Gastro-esophageal reflux disease without esophagitis (ICD-10) Hyperlipidemia, unspecified ?E78.5 - Hyperlipidemia, unspecified (ICD-10) Autism spectrum disorder ?F84.0 - Autistic disorder (ICD-10) Constipation, unspecified ?K59.00 - Constipation, unspecified (ICD-10) Allergic rhinitis, unspecified ?J30.9 - Allergic rhinitis, unspecified (ICD-10) Depression with anxiety ?F41.8 - Other specified anxiety disorders (ICD-10) Surgical History Perineal abscess (02/2009) ?L02.215 - Cutaneous abscess of perineum (ICD-10) S/P tonsillectomy and adenoidectomy (2014) ?Z90.89 - Acquired absence of other organs (ICD-10) History of tubal ligation (06/2017) ?Z98.51 - Tubal ligation status (ICD-10) Family History Father High cholesterol Maternal Grandmother Diabetes Social History Narrative: Single 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 In general, an alert, well-appearing patient. Conversant, cooperative. Head: Normocephalic, atraumatic. Eyes: Pupils are equal reactive. Extraocular movements are full. Conjunctivae are normal. ENT: Mucous membranes are moist. Neck: Supple without lymphadenopathy. Heart: Regular rate and rhythm. No murmur or rub. Lungs: Clear bilaterally. No increased work of breathing, crackles or wheezes. Neurologic: Patient is alert and oriented to person and place. Speech is fluent. Face is symmetric. Moves all extremities equally. Affect: Normal. Skin: Warm and dry. Well perfused. Const: Vital Signs, click to edit/add: Vital Signs - 24 hr 10/05/23 12:00 Temperature 97.9 F Pulse Rate [Pulse Oximeter] 104 H Respiratory Rate 16 Blood Pressure [Ri ght Upper Arm] 123/84 Pulse Oximetry 96 Oxygen Delivery Me thod Room Air Documenting provider has reviewed patient's vital signs: yes Course Course ED Course: I spoke with the patient and reviewed her records. At this time, will have her talk with VINCE. She does express to me that she thinks perhaps she should go on the Abilify, says that she is willing to go back on it because she does not think she is doing well off of it now that she thinks about it. Patient spoke with VINCE, they agree that she does not need inpatient care at this time patient actually says she is no longer suicidal, she has been able to use some of her techniques while here in the emergency department to get herself calm down. VINCE spoke with patient as well as patient's mom. It sounds as if a large motivating factor for coming in today was that she was at work, wanted to leave, was told that she could not leave, and now needs a work note. Strongly recommended that she take the Abilify that has been prescribed for her. Follow- up as planned with her therapist and psychiatrist. Return for worsening. Vital Signs Vital signs: Initial Vital Signs Temperature 97.9 F 10/05/23 12:00 Temperature Source Temporal Artery Scan 10/05/23 12:00 Pulse Rate 104 H 10/05/23 12:00 Respiratory Rate 16 10/05/23 12:00 Blood Pressure 123/84 10/05/23 12:00 Blood Pressure Mean 97 10/05/23 12:00 Blood Pressure Position Sitting 10/05/23 12:00 Pulse Oximetry 96 10/05/23 12:00 Oxygen Delivery Method Room Air 10/05/23 12:00 Vital Signs Temperature 97.9 F 10/05/23 12:00 Pulse Rate 104 H 10/05/23 12:00 Respiratory Rate 16 10/05/23 12:00 Blood Pressure 123/84 10/05/23 12:00 Pulse Oximetry 96 10/05/23 12:00 Oxygen Delivery Method Room Air 10/05/23 12:00 Temperature 97.9 F 10/05/23 12:00 Pulse Rate 104 H 10/05/23 12:00 Respiratory Rate 16 10/05/23 12:00 Blood Pressure 123/84 10/05/23 12:00 Pulse Oximetry 96 10/05/23 12:00 Oxygen Delivery Method Room Air 10/05/23 12:00 Discharge Plan Discharge Clinical Impression: Suicidal ideation Patient Disposition: Home, Self-Care Condition: Improved Instructions: Depression (ED) Additional Instructions: I strongly encourage you to take the prescribed dose of Abilify given to you by your psychiatrist. Please follow-up as planned with your therapist and psychiatrist. Return to the ER if needed for worsening symptoms. Prescriptions: No Action bupropion HCl 300 mg tablet extended release 24 hr 300 mg PO DAILY aripiprazole 30 mg tablet 30 mg PO DAILY fexofenadine [María Allergy] 180 mg tablet 180 mg PO QDAY omeprazole 20 mg capsule,delayed release(DR/EC) 20 mg PO DAILY melatonin 5 mg tablet 5 mg PO HS PRN venlafaxine 150 mg capsule,extended release 24hr 150 mg PO DAILY Follow Up/Referrals: Provider,Not a Local [Primary Care Provider] - Stand Alone Forms: [employer] Info Instructions
== END 2023-10-05 17:58 | disposition home or self-care (01) ==
PROVIDERS: Emergency Provider Emergency Medicine
DX: R45.851 Suicidal ideations (principal)
CPT/HCPCS: 99284

== ENCOUNTER 2023-11-19 13:29 | Emergency (ER) | payer MEDICARE, OTHER, SELFPAY ==
[2023-11-19 13:34] VITALS: BP 118/78; PULSE 87; RESP 16; TEMP 36.7; O2SAT 97; BMI 29.4
--- NOTE | 2023-11-19 13:54 | CRLHL7_ITS ---
For Patients: As a result of the Century Cures Act, medical imaging exams and procedure reports are released immediately into your electronic medical record. You may view this report before your referring provider. If you have questions, please contact your health care provider. INDICATION: Pain all across the abdomen for 3 hours. TECHNIQUE: CT abdomen and pelvis acquired with IV contrast. 90 mL IV Isovue 370. COMPARISON: None FINDINGS: Lower chest: Unremarkable. Liver: The liver is enlarged measuring 17.8 cm in length. Normal attenuation. No focal liver lesion. Gallbladder and bile ducts: Unremarkable. Spleen: Unremarkable. Pancreas: Unremarkable. Adrenal glands: Unremarkable. Kidneys: No kidney or ureteral stones and no hydronephrosis. No renal lesions. GI tract: Small hiatal hernia. No bowel obstruction or inflammation. Appendix is well visualized in the anterior midline (series 2, image 68) and is normal in appearance. Vascular structures: No sign of aneurysm. Lymph nodes: Unremarkable. Miscellaneous: No ascites. No free air. Pelvic Organs: Lobulated appearance of the left lateral uterus likely due to a leiomyoma. No adnexal masses. Bones: No acute osseous abnormality. No suspicious bone lesion. IMPRESSION: 1. Small hiatal hernia. 2. Mild hepatomegaly. 3. No acute abnormality. Please note that all CT scans at this facility use dose modulation, iterative reconstruction, and/or weight-based dosing when appropriate to reduce radiation dose to as low as reasonably achievable. Dictated by Rashmi Cruz MD @ 11/19/2023 3:48:27 PM (Electronically Signed)
--- NOTE | 2023-11-19 13:55 | ED_ITS ---
HPI - Abdominal Pain General Chief Complaint: Abdominal Pain Stated Complaint: abdomen pain Time Seen by Provider: 11/19/23 13:35 History of Present Illness HPI narrative: This 33-year-old female comes in reporting abdominal pain that began about 3 hours prior to arrival. Prior to this she states that she has been in good health. She did start taking metformin yesterday to help with losing weight and some nervous tremors according to her report. She arrives here with normal vital signs. She does not report any nausea, vomiting, diarrhea, or dysuria symptoms. She has not had any fevers. Related Data Home Medications ?Medication ?Instructions ?Recorded ?Confirmed aripiprazole 30 mg tablet 20 mg PO DAILY 12/05/21 11/19/23 bupropion HCl 300 mg 24 hr tablet, 300 mg PO DAILY 12/05/21 11/19/23 extended release fexofenadine 180 mg tablet 180 mg PO QDAY 12/05/21 11/19/23 (María Allergy) omeprazole 20 mg capsule,delayed 20 mg PO DAILY 01/13/22 11/19/23 release melatonin 5 mg tablet 5 mg PO HS PRN 09/11/22 11/19/23 venlafaxine 150 mg 150 mg PO DAILY 07/26/23 11/19/23 capsule,extended release 24 hr Allergies Allergy/AdvReac Type Severity Reaction Status Date / Time azithromycin Allergy Severe Throat Verified 11/19/23 15:24 swelling Review of Systems Status of ROS Reports: 10 or more systems reviewed and unremarkable except as noted in History and below Narrative Constitutional: No fevers, no weight gain or loss. Eyes: No discharge. No vision changes. HENT: No congestion, no sore throat, no ear pain. Cardiovascular: No chest pain, no palpitations. Respiratory: No shortness of breath, no wheezes, no cough. Gastrointestinal: No vomiting, no diarrhea. Abdominal pain as described Genitourinary: No dysuria, no hematuria. Musculoskeletal: Normal range of motion. Skin: No rashes, no pruritis. Neurological: No dizziness, weakness, sensory change, speech change. Endo/Heme/Allergies: No bruising or bleeding. No polydipsia. Pysch: no suicidality, no anxiety, no insomnia. All other systems reviewed and are negative. 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 (ICD-10) Moderate episode of recurrent major depressive disorder ?F33.1 - Major depressive disorder, recurrent, moderate (ICD-10) Mild intellectual disabilities ?F70 - Mild intellectual disabilities (ICD-10) Chronic GERD ?K21.9 - Gastro-esophageal reflux disease without esophagitis (ICD-10) Hyperlipidemia, unspecified ?E78.5 - Hyperlipidemia, unspecified (ICD-10) Autism spectrum disorder ?F84.0 - Autistic disorder (ICD-10) Constipation, unspecified ?K59.00 - Constipation, unspecified (ICD-10) Allergic rhinitis, unspecified ?J30.9 - Allergic rhinitis, unspecified (ICD-10) Depression with anxiety ?F41.8 - Other specified anxiety disorders (ICD-10) Surgical History Perineal abscess (02/2009) ?L02.215 - Cutaneous abscess of perineum (ICD-10) S/P tonsillectomy and adenoidectomy (2014) ?Z90.89 - Acquired absence of other organs (ICD-10) History of tubal ligation (06/2017) ?Z98.51 - Tubal ligation status (ICD-10) Family History Father High cholesterol Maternal Grandmother Diabetes Social History Narrative: Single 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 HEENT: Normocephalic, atraumatic. Neck: Normal range of motion. Nontender. Supple. Heart: Regular. No murmurs. Normal rate. Intact distal pulses. Lungs: Clear to auscultation. No chest discomfort. No wheezes, rhonchi, or rales. Abdomen: Normal bowel sounds. Diffuse pain throughout the abdomen. No rebound tenderness. Genitalia: Deferred. Back: No midline tenderness. Normal range of motion. Extremities: Normal range of motion. No injury. Skin: Intact. No rash. Warm. No erythema or pallor. Neurologic: No altered sensation. No weakness. Alert and oriented. Psychiatric: No suicidality. No anxiety or depression. No insomnia. Nursing notes and vitals signs are reviewed. Const: Vital Signs, click to edit/add: Vital Signs - 24 hr 11/19/23 13:34 Temperature 98.1 F Pulse Rate [Left P ulse Oximeter] 87 Respiratory Rate 16 Blood Pressure [Ri ght Upper Arm] 118/78 Pulse Oximetry 97 Oxygen Delivery Me thod Room Air Course Vital Signs Vital signs: Initial Vital Signs Temperature 98.1 F 11/19/23 13:34 Temperature Source Oral 11/19/23 13:34 Pulse Rate 87 11/19/23 13:34 Respiratory Rate 16 11/19/23 13:34 Blood Pressure 118/78 11/19/23 13:34 Blood Pressure Mean 91 11/19/23 13:34 Blood Pressure Position Sitting 11/19/23 13:34 Pulse Oximetry 97 11/19/23 13:34 Oxygen Delivery Method Room Air 11/19/23 13:34 Vital Signs Temperature 98.1 F 11/19/23 13:34 Pulse Rate 87 11/19/23 13:34 Respiratory Rate 16 11/19/23 13:34 Blood Pressure 118/78 11/19/23 13:34 Pulse Oximetry 97 11/19/23 13:34 Oxygen Delivery Method Room Air 11/19/23 13:34 Temperature 98.1 F 11/19/23 13:34 Pulse Rate 87 11/19/23 13:34 Respiratory Rate 16 11/19/23 13:34 Blood Pressure 118/78 11/19/23 13:34 Pulse Oximetry 97 11/19/23 13:34 Oxygen Delivery Method Room Air 11/19/23 13:34 MDM - Abdominal Pain MDM Narrative Medical decision making narrative: This patient comes in with abdominal pain as described above. The patient states that her pain is better now at the end of her visit here. Meanwhile lab and imaging results returned with no acute findings. Her vital signs also are in normal range. The patient is okay to be discharged home. I did provide a [employer] prescription for some tablets of Toradol. Lab Data Labs: Lab Results 11/19/23 11/19/23 Range/Units 14:00 14:10 WBC 9.25 (4.50-11.00) K/uL RBC 4.28 (4.00-5.20) m/uL Hgb 12.2 (12.0-16.0) gm/dL Hct 37.1 (33.0-51.0) % MCV 87 (80-100) fL MCH 29 (26-34) pg MCHC 33 (32-36) gm/dL RDW Coeff of Vandana 13.9 (11.5-15.5) % Plt Count 371 (140-440) K/uL Neut % (Auto) 54.9 (42.0-72.0) % Lymph % (Auto) 30.4 (20-44) % [place] % (Auto) 7.8 (0.0-11.0) % Eos % (Auto) 5.9 (0.0-7.0) % Baso % (Auto) 0.8 (0.0-3.0) % Neut # (Auto) 5.08 (1.7-7.0) K/uL Lymph # (Auto) 2.81 (0.90-2.90) K/uL [place] # (Auto) 0.70 (0.00-0.90) K/UL Eos # (Auto) 0.55 H (0.00-0.50) K/uL Baso # (Auto) 0.07 (0.00-0.30) K/uL Abs Immat Gran (auto) 0.02 (0.00-0.30) K/uL Imm/Tot Granulo (auto) 0.2 % Sodium 137 (135-149) mmol/L Potassium 3.6 (3.6-5.1) mmol/L Chloride 104 (96-114) mmol/L Carbon Dioxide 29 (20-32) mmol/L Anion Gap 4 L (7-15) mEq/L BUN 14 (5-24) mg/dL Creatinine 0.8 (0.5-1.5) mg/dL Estimated Creat Clear 91.88 Estimated GFR 98 ml/min Glucose 77 (60-115) mg/dL Calcium 9.5 (8.4-10.6) mg/dL HCG, Qual Negative (Negative) Urine Color Yellow (Yellow) Urine Appearance Clear (Clear) Urine pH 6.0 (5.0-8.5) Ur Specific [place] >= 1.030 (1.000-1.030) Urine Protein Negative (Negative) Urine Glucose (UA) Negative (Negative) Urine Ketones Negative (Negative) Urine Blood Negative (Negative) Urine Nitrite Negative (Negative) Urine Bilirubin Negative (Negative) Urine Urobilinogen 0.2 (0.2-1.0) Ur Leukocyte Esterase Negative (Negative) Urine RBC 0-2 (0-2) Urine WBC 0-2 (0-5) Ur Squamous Epith Cells None (None-Few) Urine Bacteria None (None) Imaging Data CT scan - abdomen: Radiologist's impression: 1. Small hiatal hernia. 2. Mild hepatomegaly. 3. No acute abnormality. Discharge Plan Discharge Clinical Impression: Abdominal pain Patient Disposition: Home, Self-Care Condition: Improved Additional Instructions: Continue current plans. Use Toradol as needed and directed for pain relief. Follow up with MD return if worsening. Prescriptions: No Action bupropion HCl 300 mg tablet extended release 24 hr 300 mg PO DAILY aripiprazole 30 mg tablet 20 mg PO DAILY fexofenadine [María Allergy] 180 mg tablet 180 mg PO QDAY omeprazole 20 mg capsule,delayed release(DR/EC) 20 mg PO DAILY melatonin 5 mg tablet 5 mg PO HS PRN venlafaxine 150 mg capsule,extended release 24hr 150 mg PO DAILY Follow Up/Referrals: Provider,Not a Local [Primary Care Provider] - Stand Alone Forms: [employer] Info Instructions
--- OUTSIDE RECORDS SUMMARY | 2023-11-19 14:01 | XMS_ITS | Clinical Summary ---
Author Organization [facility] Address [place], [place] [address] Care Team Providers Care Thermite Welder Name Role Phone TellJil RN Unavailable [phone] Haley Castorena MD Primary Care Provider [...] Take 150 mg by mouth. 09/25/2022 Active melatonin 10 mg chew Chew 10 mg by mouth at bedtime. Active ARIPiprazole (ABILIFY) 20 mg tablet Take 20 mg by mouth once daily. 09/21/2023 Active omeprazole (PRILOSEC) 20 mg Delayed-Release capsuleIndications:C hronic GERD TAKE 1 CAPSULE BY MOUTH EVERY DAY BEFORE MEALS 100 Capsule 10/13/2023 Active multivit with iron,minerals (MULTIVITAMIN AND MINERALS ORAL) Take by mouth. Active Active Problems Problem Noted Date Diagnosed Date [...] disorder 06/08/2009 7 Pervasive developmental disorder, unspecified 04/18/2011/13/2016 Major depressive disorder, r ecurrent episode, unspecified 09/14/2006 06/08/2009 Adjustment disorder with anxiety 03/29/2007 High risk , antepartum 06/12/2017 Medication exposure during f irst trimester of 07/23/2017 Choroid plexus cyst of fetus on ultrasound 07/23/2017 Encounters Date Type Department Care Team Description 10/16/2023 4:15 PM CDT Office Visit [facility] [address] [place] [address] Melba Paulson NP Vaginal Problem (Painful and swollen , some discharge ) 10/16/2023 Travel 10/12/2023 Refill [facility] [address] [place] [address] Haley Castorena MD Refill Request (Omeprazole) 09/29/2023 2:10 PM CDT Office Visit [facility] [address] [place] [address] Bertrand Anderson MD Derm Problem (Cyst she thinks in the back of her head) 09/29/2023 Travel 09/18/2023 9:30 AM CDT Office Visit [facility] [address] [place] [address] Terri Orosco PA Gi Problem (diarrhea last few weeks- ) 09/18/2023 Travel 09/16/2023 Patient Outreach [address] [phone] Jil Anderson RN AXIS Care Coordination- [employer] (Call to member) from Last 3 Months Immunizations Name Administration Dates Next Due COVID-19 vaccine (Pfizer-Bio NTech 30mcg/0.3mL) 12YO+ BIVALENT PF, MDV 03/10/2022 [...] Outcome GA Total Labor Labor/2nd/3rd Weight Sex Type Anes PTL Gloria A1 A5 Name Clin 018 36w 0d F Vag PETERSO N,BG TONYA Delivery Location:[facility] Last Filed Vital Signs Vital Sign Reading Time Taken Comments Blood Pressure 104/68 10/16/2023 3:48 PM CDT Pulse 70 10/16/2023 3:48 PM CDT Temperature 36.5 ??C (97.7 ??F) 05/22/2023 7:44 AM CS T Respiratory Rate 16 07/20/2018 11:44 AM PERFUMER Oxygen Saturation 98% 09/18/2023 9:28 AM CDT Inhaled Oxygen Concentration - - Weight 79.4 kg (175 lb) 10/16/2023 3:48 PM CDT Height 169.5 cm (5' 6.75) 10/16/2023 3:48 PM CD T Body Mass Index 27.61 10/16/2023 3:48 PM CDT Plan of Treatment Upcoming Encounters Date Type Department Care Team (Late st Contact Info) Description 01/06/2024 9:20 AM CDT Office Visit [facility] [address] [place] [phone] Katerina Forman PA [address] [facility] [address] [phone] Health Maintenance Due Date Last Done Comments COVID-19 vaccine series ( season) 2023 03/10/2022, 2020, 08/02/2020 Depression screening for age 12+ 10/01/2023 09/30/2022, 10/17/2021, 10/29/2020, Additional history exists Influenza for age 9-49 01/17/2024 3, 03/10/2022, 01/17/2021, Additional history exists BMI (ht and wt on same day) for age 18+ 10/15/2024 10/16/2023, 09/30/2022, 06/05/2022, Additional history exists Pap test for age [...] Type Associated Problems Recent Progress Patient-Stated? Author [place] CC: UTR General No TellJil RN Note: [...] or other community provider Contacted waiver case finisher Contacted financial worker Conducted other research (such as health plan claims reports, MNITs or Epic record review) HRA scheduled #1 #2 #3 Procedures Procedure Name Priority Date/Time Associated Diagnosis Comments URINALYSIS MICROSCOPIC Routine 4:08 PM CDT Dysuria UA W/ SEDIMENT EXAM REFLEXED PER CRITERIA Routine 10/16/2023 4:08 PM CDT Dysuria TRICHOMONAS, AMBER, AND BACTERIAL VAGINOSIS BY KRISHAN Routine 10/16/2023 4:05 PM CDT Vaginal discharge TISSUE TRANSGLUTAMINASE IGA Routine 09/18/2023 10:15 AM CDT Acute diarrhea Family history of celiac disease CBC WITH AUTO DIFFERENTIAL Routine 09/18/2023 10:15 AM CDT Acute diarrhea CELIAC CASCADE PANEL Routine 09/18/2023 10:15 AM CDT Acute diarrhea Family history of celiac disease CBC WITH AUTO DIFFERENTIAL Routine 09/18/2023 10:15 AM CDT Acute diarrhea BASIC METABOLIC PANEL Routine 09/18/2023 10:15 AM CDT Acute diarrhea LEGAL PROCESS SPECIALIST THIN PREP PAP SCREEN IMAGED Routine 09/19/2021 4:58 PM CDT Screening for malignant neoplasm of cervix ANTI HIV 1/2 Routine 07/20/2018 12:36 PM PERFUMER Screen for STD (sexually transmitted disease) ANTI HCV Routine 04/16/2017 1:59 PM PERFUMER Supervision of high risk , antepartum from Last 3 Months or Most Recently Relevant to Health Maintenance Results * URINALYSIS MICROSCOPIC (10/16/2023 4:08 PM CDT) RBC 0-2 0-2, None Seen /HPF 10/16/2023 4:14 PM CDT [facility] WBC 0-2 0-2, 3-5, None Seen /HPF 10/16/2023 4:14 PM CDT [facility] BACTERIA None Seen None Seen, Rare, Few Bacteria/ HPF 10/16/2023 4:14 PM CDT [facility] EPITHELIAL CELLS Few None Seen, Few Epi/HPF 10/16/2023 4:14 PM CDT [facility] Mucus Present 10/16/2023 4:14 PM CDT [facility] Urine URINE SPECIMEN / Unknown Non-Blood / Unknown 10/16/2023 4:08 PM CDT 10/16/2023 4:08 PM CDT Melba Paulson NP URINE Performing Organization Address City/State/[facility] Co de Phone Number [facility] [address] [place] [phone], * (ABNORMAL) UA W/ SEDIMENT EXAM REFLEXED PER CRITERIA (10/16/2023 4:08 PM CDT) COLOR Yellow Yellow Color 10/16/2023 4:13 PM CDT [facility] CLARITY Clear Clear Clarity 10/16/2023 4:13 PM CDT [facility] SPECIFIC GRAVITY,URINE >=1.030(A) 1.010, 1.015, 1.020, 1.025 10/16/2023 4:13 PM CDT [facility] PH,URINE 5.5 6.0, 7.0, 8.0, 5.5, 6.5, 7.5, 8.5 10/16/2023 4:13 PM CDT [facility] UROBILINOGEN, QUALITATIVE Normal Normal EU/dl 10/16/2023 4:13 PM CDT [facility] PROTEIN, URINE Negative Negative mg/dL 10/16/2023 4:13 PM CDT [facility] GLUCOSE, URINE Negative Negative mg/dL 10/16/2023 4:13 PM CDT [facility] KETONES,URINE Negative Negative mg/dL 10/16/2023 4:13 PM CDT [facility] BILIRUBIN,URI NE Negative Negative 10/16/2023 4:13 PM CDT [facility] OCCULT BLOOD,URINE Negative Negative 10/16/2023 4:13 PM CDT [facility] NITRITE Negative Negative 10/16/2023 4:13 PM CDT [facility] LEUKOCYTE ESTERASE Trace(A) Negative 10/16/2023 4:13 PM CDT [facility] Urine URINE SPECIMEN / Unknown Non-Blood / Unknown 10/16/2023 4:08 PM CDT 10/16/2023 4:08 PM CDT Melba Paulson NP URINE Performing Organization Address [facility]/State/[facility] Co de Phone Number [facility] [address] [place] [address], * (ABNORMAL) TRICHOMONAS, AMBER, AND BACTERIAL VAGINOSIS BY KRISHAN (10/16/2023 4:05 PM CDT) AMBER SPECIES Positive(A) Negative 10/17/19 2:43 AM CDT [facility] AMBER GLABRATA Negative Negative 10/17/2023 2:43 AM CDT [facility] TRICHOMONAS VVA Negative Negative 2:43 AM CDT [facility] BACTERIAL VAGINOSIS Negative Negative 10/17/2023 2:43 AM CDT [facility] Other VAGINAL SWAB / Unknown Non-Blood / Unknown 10/16/2023 4:05 PM CDT 10/16/2023 4:05 PM CDT Melba Paulson NP MICROBIOLOGY [facility] [address] [place] [address], * CELIAC CASCADE PANEL (09/18/2023 10:15 AM CDT) IGA 280.20 84.50 - 499.00 mg/dL 09/21/2023 8:28 AM CDT [facility] Blood BLOOD SPECIMEN / Unknown Venipuncture / Unknown 09/18/2023 10:15 AM CDT 09/18/2023 10:16 AM CDT Narrative [facility] - 09/21/2023 8:28 AM CDT Reflexed to Tissue Transglutaminase IgA Terri Orosco PA SEND OUTS Performing Organization Address City/[facility]/ZIP Co de Phone Number [facility] [address] [place] [address], * (ABNORMAL) CBC WITH AUTO DIFFERENTIAL (09/18/2023 10:15 AM CDT) WHITE BLOOD COUNT 10.5 4.5 - 11.0 thou/cu mm 09/18/2023 10:22 AM CDT [facility] RED BLOOD COUNT 4.29 4.00 - 5.20 mil/cu mm 09/18/2023 10:22 AM CDT [facility] HEMOGLOBIN 12.3 12.0 - 16.0 g/dL 09/18/2023 10:22 AM CDT [facility] HEMATOCRIT 37.2 33.0 - 51.0 % 09/18/2023 10:22 AM CDT [facility] MCV 87 80 - 100 fL 09/18/2023 10:22 AM CDT [facility] MCH 28.7 26.0 - 34.0 pg 09/18/2023 10:22 AM CDT [facility] MCHC 33.1 32.0 - 36.0 g/dL 09/18/2023 10:22 AM CDT [facility] RDW 14.4 11.5 - 15.5 % 09/18/2023 10:22 AM CDT [facility] PLATELET COUNT 416 140 - 440 thou/cu mm 09/18/2023 10:22 AM CDT [facility] MPV 9.3 6.5 - 11.0 fL 09/18/2023 10:22 AM CDT [facility] % NEUT 72.8 % 09/18/2023 10:22 AM CDT [facility] % LYMPH 19.8 % 09/18/2023 10:22 AM CDT [facility] % MONO 5.9 % 09/18/2023 10:22 AM CDT [facility] % EOS 1.1 % 09/18/2023 10:22 AM CDT [facility] % BASO 0.4 % 09/18/2023 10:22 AM CDT [facility] ABSOLUTE NEUTROPHILS 7.7(H) 1.7 - 7.0 thou/cu mm 09/18/2023 10:22 AM CDT [facility] ABSOLUTE LYMPHOCYTES 2.1 0.9 - 2.9 thou/cu mm 09/18/2023 10:22 AM CDT [facility] ABSOLUTE MONOCYTES 0.6 <0.9 thou/cu mm 09/18/2023 10:22 AM CDT [facility] ABSOLUTE EOSINOPHILS 0.1 <0.5 thou/cu mm 09/18/2023 10:22 AM CDT [facility] ABSOLUTE BASOPHILS 0.0 <0.3 thou/cu mm 09/18/2023 10:22 AM CDT [facility] Blood BLOOD SPECIMEN / Unknown Venipuncture / Unknown 09/18/2023 10:15 AM CDT 09/18/2023 10:16 AM CDT Terri QUINTEROS HEMATOLOGY [facility] [address] [place] [address], * TISSUE TRANSGLUTAMINASE IGA (09/18/2023 10:15 AM CDT) TISSUE TRANSGLUTAMINASE IGA <1.2 <4.0 U/ml 09/21/2023 1:23 PM CDT [facility] Comment:Celiac disease unlik matilde unless IgA deficient. Recommend IgA levels if not already performed. Blood BLOOD SPECIMEN / Unknown Venipuncture / Unknown 09/18/2023 10:15 AM CDT 09/18/2023 10:16 AM CDT Narrative [facility] - 09/21/2023 1:23 PM CDT Negative ?<4.0 Weak Positive ?? 4-10 Positive ?>10.0 This test should not be solely relied upon to establish a diagnosis of celiac disease. Affected individuals who have been on a gluten-free diet prior to testing may have a negative result. These results were obtained using the [employer] Cherrye R h-tTG IgA NIMA assay. ??Values obtained from other manufacturers' assay methods may not be used interchangeably. Terri QUINTEROS SEND OUTS [facility] [address] [place] [address], * (ABNORMAL) BASIC METABOLIC PANEL (09/18/2023 10:15 AM CDT) Pathologist [facility] SODIUM 140 136 - 145 mmol/L 09/18/2023 6:00 PM CDT [facility] POTASSIUM 4.4 3.5 - 5.1 mmol/L 09/18/2023 6:00 PM CDT [facility] CHLORIDE 105 98 - 107 mmol/L 09/18/2023 6:00 PM CDT [facility] CO2,TOTAL 25 22 - 29 mmol/L 09/18/2023 6:00 PM CDT [facility] ANION GAP 10 5 - 18 09/18/2023 6:00 PM CDT [facility] GLUCOSE 90 70 - 99 mg/dL 09/18/2023 6:00 PM CDT [facility] CALCIUM 10.0 8.6 - 10.0 mg/dL 09/18/2023 6:00 PM CDT [facility] BUN 13 6 - 20 mg/dL 09/18/2023 6:00 PM CDT [facility] CREATININE 0.90 0.50 - 0.90 mg/dL 09/18/2023 6:00 PM CDT [facility] BUN/CREAT RATIO 14 10 - 20 6:00 PM CDT [facility] eGFR 86(L) >90 mL/min/1.7 3m2 09/18/2023 6:00 PM CDT [facility] Comment:As of 2021, eG FR is calculated by the CKD-EPI creatinine equation without race adjustment. ??eGFR can be influenced by muscle mass, exercise, and diet. ??The reported eGFR is an estimation only and is only applicable if the renal function is stable. Blood BLOOD SPECIMEN / Unknown Venipuncture / Unknown 09/18/2023 10:15 AM CDT 09/18/2023 10:16 AM CDT Terri [facility]INTEROS [facility] [address] [place] [address], * LEGAL PROCESS SPECIALIST THIN PREP PAP SCREEN IMAGED (09/19/2021 4:58 PM CDT) Case Report Gynecologic Cytology Report ? Case: [id number] ? Authorizing Provider: ??Prerna Garza PA ?Collected: ? 09/19/2021 1658 ? Ordering Location: ? [facility] ?? Received: ?09/19/2021 1713 ? Clinic ? First Screen: ?Columba Jorge ? Pathologist: ? Pradip Daniel Jr., ? MD ? Specimen: ?LEGAL PROCESS SPECIALIST ThinPrep Vial Screening, Cervical ? 10/08/2021 12:40 PM CDT [email or web address]-C ENTRAL LABORATORY INTERPRETATION/ RESULT NEGATIVE FOR INTRAEPITHELIAL LESION OR MALIGNANCY (NIL) (none) 10/08/2021 12:40 PM CDT [facility] R NON-NEOPLASTIC FINDING(S) Reactive cellular changes associated with inflammation/repa ir 10/08/2021 12:40 PM CDT [facility] ENTRAL LAB[facility] SPECIMEN ADEQUACY Satisfactory for evaluation Endocervical component present 10/08/2021 12:40 PM CDT [facility] HPV REQUEST HPV and PAP 10/08/2021 12:40 PM CDT [facility] Date of LMP hormonally suppressed 10/08/2021 12:40 PM CDT [facility] Last Pap Date 07/20/18 10/08/2021 12:40 PM CDT [facility] Last Pap Result NIL 12:40 PM CDT [facility] Abnormal Pap or Dinwiddie Bx in last 5 years No 10/08/2021 12:40 PM CDT [facility] Menstrual Status Hormonally Suppressed 10/08/2021 12:40 PM CDT [facility] Dinwiddie Bx Done Today No 10/08/2021 12:40 PM CDT [facility] Additional Information None given 10/08/2021 12:40 PM CDT [facility] Comment: Cytology is screened at [facility], Central Laboratory - [address] [facility] [address] [address] and [facility] - [address], [place] [address] and [facility] - [address] [place] [address] Interpreted at [facility] - [address], [place] [address] Automated Review Successful 10/08/2021 12:40 PM CDT [facility] Comment:Specimen processed s uccessfully by automated scout executive device, [employer] Imaging System, [employer] ANCILLARY TESTING LEGAL PROCESS SPECIALIST HPV Ordered, Please see separate report 10/08/2021 12:40 PM CDT [facility] Note The pap test is [...] and malignant lesions. 10/08/2021 12:40 PM CDT [facility]AL LAB[facility] Other (Cervical) Non-Blood / Unknown 09/19/2021 4:58 PM CDT 09/19/2021 5:13 PM CDT Prerna QUINTEROS PATHOLOGY/CYTOLOGY Performing Organization Address City/[facility]/ZIP Co de Phone Number [facility] [address] [place] [address], * ANTI HIV 1/2 (07/20/2018 12:36 PM PERFUMER) HIV-1/HIV-2 ANTIBODY Non-Reacti ve Non-Reacti ve 07/20/2018 7:14 PM PERFUMER [facility] Comment:HIV-1 p24 and HIV-1/ HIV-2 Ab not detected. Blood BLOOD SPECIMEN / Unknown Butterfly / Unknown 07/20/2018 12:36 PM PERFUMER 07/20/2018 12:36 PM PERFUMER Tony Lomeli MD SEND OUTS Performing Organization Address [facility] Co de Phone Number [facility] [address] [place] [address], * ANTI HCV (04/16/2017 1:59 PM PERFUMER) HEPATITIS C ANTIBODY Non-Reacti ve Non-Reacti ve 04/16/2017 6:55 PM PERFUMER [facility] Blood BLOOD SPECIMEN / Unknown Venipuncture / Unknown 04/16/2017 1:59 PM PERFUMER 04/16/2017 1:59 PM PERFUMER Narrative [facility] - 04/16/2017 6:55 PM PERFUMER Antibodies to HCV not detected; does not exclude the possibility of exposure to HCV. Tony Lomeli MD SEND OUTS Performing Organization Address City/[facility]/ZIP Co de Phone Number [facility] [address] [place] [address], [place] from Last 3 Months or Most Recently [...] 3:11 PM 08/27/2009 7:09 PM Care Teams Thermite Welder Relationship Specialty [place] [address] [facility] [place] [address] PCP - General Family Practice 07/07/23 Jil Anderson, RN [address] [place] [address] [employer] Care Coordination Software Test Analyst 06/28/19 Ronda Mendoza MA, [facility] [address] [place] [address] [address] [place] [address] Licensed Professional Clinical Counselor 08/11/17
[2023-11-19 14:18] LABS: Basophils Absolute Auto 0.07 K/uL (0.00-0.30); Basophils Percent Auto 0.8 % (0.0-3.0); Eosinophils Absolute Auto 0.55 K/uL (0.00-0.50); Eosinophils Percent Auto 5.9 % (0.0-7.0); Hematocrit 37.1 % (33.0-51.0); Hemoglobin* 12.2 gm/dL (12.0-16.0); Immature Granulocytes Abs Auto 0.02 K/uL (0.00-0.30); Immature Granulocytes Pct Auto 0.2 %; Lymphocytes Absolute Auto 2.81 K/uL (0.90-2.90); Lymphocytes Percent Auto 30.4 % (20-44); Mean Corpuscular HGB Conc 33 gm/dL (32-36); Mean Corpuscular Hemoglobin 29 pg (26-34); Mean Corpuscular Volume 87 fL (80-100); Monocytes Percent Auto 7.8 % (0.0-11.0); Neutrophils Absolute Auto 5.08 K/uL (1.7-7.0); Neutrophils Percent Auto 54.9 % (42.0-72.0); Platelet Count* 371 K/uL (140-440); RDW Coefficient of Variation % 13.9 % (11.5-15.5); Red Blood Count 4.28 m/uL (4.00-5.20); White Blood Count* 9.25 K/uL (4.50-11.00)
[2023-11-19 14:20] LABS: Appearance Urine Clear (Clear); Bilirubin Urine Negative (Negative); Blood Urine Negative (Negative); Color Urine Yellow (Yellow); Glucose Urine Negative (Negative); Ketones Urine Negative (Negative); Leukocyte Esterase Urine Negative (Negative); Nitrite Urine Negative (Negative); Protein Urine Negative (Negative); Specific Gravity Urine >= 1.030 (1.000-1.030); Urobilinogen Urine 0.2 (0.2-1.0)
[2023-11-19 14:22] LABS: Slide Review Reflex No
[2023-11-19 14:31] LABS: Chloride* 104 mmol/L (96-114); Potassium* 3.6 mmol/L (3.6-5.1); Sodium* 137 mmol/L (135-149)
[2023-11-19 14:34] LABS: Anion Gap 4 mEq/L (7-15); Blood Urea Nitrogen* 14 mg/dL (5-24); Calcium* 9.5 mg/dL (8.4-10.6); Carbon Dioxide* 29 mmol/L (20-32); Creatinine* 0.8 mg/dL (0.5-1.5); Est. Creatinine Clearance* 91.88; Estimated Glomerular Filt Rate 98 ml/min; Glucose* 77 mg/dL (60-115)
[2023-11-19 14:52] LABS: HCG Qualitative Serum* Negative (Negative)
[2023-11-19 14:53] LABS: RBC Urine 0-2 (0-2); WBC Urine 0-2 (0-5)
== END 2023-11-19 16:13 | disposition home or self-care (01) ==
PROVIDERS: Emergency Provider Emergency Medicine Emergency Medical Services
DX: R10.9 Unspecified abdominal pain (principal)
CPT/HCPCS: 36415; 74177; 80048; 81001; 84703; 85025; 99284; 99285; Q9967

== ENCOUNTER 2024-01-23 20:24 | Emergency (ER) | payer MEDICARE, OTHER, SELFPAY ==
[2024-01-23 20:31] VITALS: BP 113/75; PULSE 95; RESP 16; TEMP 36.2; O2SAT 98; BMI 28.2
--- NOTE | 2024-01-23 20:38 | ED_ITS ---
HPI - General Adult General Chief complaint: Psychiatric Problem/Disorder Stated complaint: Suicidal ideation Time Seen by Provider: 01/23/24 20:32 History of Present Illness HPI narrative: feeling sad off an on today. Feel like hurting myself. Doesn't want to feel depressed anymore. No attempts at self harm. No set plans to harm self. all I do is sleep and cry Told work she can't work nights anymore because its messing up my mental health 33-year-old woman presenting to the emergency department with concern of feeling like she wants to hurt herself. She denies interest in wanting to and does not have a plan about how she would hurt herself. She has been crying more lately. Underlying history of depression and anxiety and autism spectrum disorder. Has been working at [employer] over the last year and recently was asked to move to nights due to staffing needs. Working nights for 2 plus weeks. She reports working with psychiatrist to taper on Abilify. Unsure whether plan is actually to discontinue. She has been having trouble breaking this tablet down to recommended 15 mg. 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 Did review medications. No other stressors identified. She is accompanied by 2 supportive friends. She does have upcoming appointments with therapist and psychiatrist. Does not use substances or alcohol. Related Data Home Medications ?Medication ?Instructions ?Recorded ?Confirmed aripiprazole 30 mg tablet 20 mg PO DAILY 12/05/21 11/19/23 bupropion HCl 300 mg 24 hr tablet, 300 mg PO DAILY 12/05/21 11/19/23 extended release fexofenadine 180 mg tablet 180 mg PO QDAY 12/05/21 11/19/23 ([facility] Allergy) omeprazole 20 mg capsule,delayed 20 mg PO DAILY 01/13/22 11/19/23 release melatonin 5 mg tablet 5 mg PO HS PRN 09/11/22 11/19/23 venlafaxine 150 mg 150 mg PO DAILY 07/26/23 11/19/23 capsule,extended release 24 hr Previous Rx's ?Medication ?Instructions ?Recorded aripiprazole 15 mg tablet (Abilify) 15 mg PO DAILY #15 tabs 01/23/24 Allergies Allergy/AdvReac Type Severity Reaction Status Date / Time azithromycin Allergy Severe Throat Verified 11/19/23 15:24 swelling Review of Systems Status of ROS: Reports: 6 or more systems reviewed and unremarkable except as noted in History and below 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 (ICD-10) Moderate episode of recurrent major depressive disorder ?F33.1 - Major depressive disorder, recurrent, moderate (ICD-10) Mild intellectual disabilities ?F70 - Mild intellectual disabilities (ICD-10) Chronic GERD ?K21.9 - Gastro-esophageal reflux disease without esophagitis (ICD-10) Hyperlipidemia, unspecified ?E78.5 - Hyperlipidemia, unspecified (ICD-10) Autism spectrum disorder ?F84.0 - Autistic disorder (ICD-10) Constipation, unspecified ?K59.00 - Constipation, unspecified (ICD-10) Allergic rhinitis, unspecified ?J30.9 - Allergic rhinitis, unspecified (ICD-10) Depression with anxiety ?F41.8 - Other specified anxiety disorders (ICD-10) Surgical History Perineal abscess (02/2009) ?L02.215 - Cutaneous abscess of perineum (ICD-10) S/P tonsillectomy and adenoidectomy (2014) ?Z90.89 - Acquired absence of other organs (ICD-10) History of tubal ligation (06/2017) ?Z98.51 - Tubal ligation status (ICD-10) Family History Father High cholesterol Maternal Grandmother Diabetes Social History Narrative: Single 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 Well-nourished. Thoughtful, introspective. Eating her supper. Carefully groomed but dressed in paper scrubs. Breathing easily. No evidence of self-harm attempts or other injuries on her skin. Heart in mildly elevated rate. Regular rhythm. Cranial nerves 2-12 intact. Pupils are equal. Not unusually dilated or restricted. Const: Vital Signs, click to edit/add: Vital Signs - 24 hr 01/23/24 20:31 Temperature 97.2 F L Pulse Rate [Left P ulse Oximeter] 95 Respiratory Rate 16 Blood Pressure [Ri ght Upper Arm] 113/75 Pulse Oximetry 98 Oxygen Delivery Me thod Room Air Documenting provider has reviewed patient's vital signs: yes Course Vital Signs Vital signs: Initial Vital Signs Temperature 97.2 F L 01/23/24 20:31 Temperature Source Temporal Artery Scan 01/23/24 20:31 Pulse Rate 95 01/23/24 20:31 Pulse Rhythm Regular 01/23/24 20:31 Respiratory Rate 16 01/23/24 20:31 Blood Pressure 113/75 01/23/24 20:31 Blood Pressure Mean 87 01/23/24 20:31 Blood Pressure Position Sitting 01/23/24 20:31 Pulse Oximetry 98 01/23/24 20:31 Oxygen Delivery Method Room Air 01/23/24 20:31 Vital Signs Temperature 97.2 F L 01/23/24 20:31 Pulse Rate 95 01/23/24 20:31 Respiratory Rate 16 01/23/24 20:31 Blood Pressure 113/75 01/23/24 20:31 Pulse Oximetry 98 01/23/24 20:31 Oxygen Delivery Method Room Air 01/23/24 20:31 Temperature 97.2 F L 01/23/24 20:31 Pulse Rate 95 01/23/24 20:31 Respiratory Rate 16 01/23/24 20:31 Blood Pressure 113/75 01/23/24 20:31 Pulse Oximetry 98 01/23/24 20:31 Oxygen Delivery Method Room Air 01/23/24 20:31 Medical Decision Making MDM Narrative Medical decision making narrative: Appears more stressed related to events recently. She has discussed she says with her work moving back into more regular daytime hours; it sounds as though they will accommodate. Was also given some days off from work. This seems to be of in large part the source of difficulties lately. That and then subse quently being off of medications. I do not think requires hospitalization. She has reached out appropriately to friends and intends to follow up with therapist and psychiatrist. Discussed assistance with medication. Will prescribe temporary script of smaller mg dosing of Abilify. Providing olanzapine if needed for sleep over the next couple of nights. Appears reassured and feels safe. See patient discharge plan for further discussion Medical Records Medical records reviewed: Yes I reviewed the patient's medical records Discharge Plan Discharge Clinical Impression: Depression Patient Disposition: Home w/ Parent or Adult Condition: Stable Instructions: Depression (ED) Additional Instructions: I want to affirm how you are dealing with your feelings. You reached out to friends. You discussed your difficulties with your work and it sounds like they are going to be working with you. And you will be returning to work in 5 days time Please message your psychiatrist and therapist as you discussed. I anticipate you meeting with them in about 10 days time. Since you have already been off your Abilify for some time, you might want to discuss with your psychiatrist whether not you should restart it. I have however sent in a prescription for the 15 mg tabs that you said you would need. If in the meantime, prior to being seen by your therapist and psychiatrist again, if after talking to your friends and therapist you still feel unsafe, feel free to return to the emergency department for re-evaluation. I am prescribing some olanzapine for you to take to help with sleep if needed. Would not consider this a medication to take regularly but just over the next day or 2 if really needed. Take 1 tablet if needed for sleep and if not asleep in an hour go ahead and take another tablet. Meanwhile like your friend said, set an alarm so that you return to taking your medications regularly and I would just restart them in the morning. I would discuss further with your psychiatrist how to dose the medications you have acc ording to a schedule where you are working nights or when you are working days or maybe that 2nd shift you mentioned. Prescriptions: New aripiprazole [Abilify] 15 mg tablet 15 mg PO DAILY Qty: 15 0RF No Action bupropion HCl 300 mg tablet extended release 24 hr 300 mg PO DAILY aripiprazole 30 mg tablet 20 mg PO DAILY fexofenadine [Mar[facility] Allergy] 180 mg tablet 180 mg PO QDAY omeprazole 20 mg capsule,delayed release(DR/EC) 20 mg PO DAILY melatonin 5 mg tablet 5 mg PO HS PRN venlafaxine 150 mg capsule,extended release 24hr 150 mg PO DAILY Follow Up/Referrals: Provider,Not a Local [Non-Staff] - Stand Alone Forms: [employer] Info Instructions
--- OUTSIDE RECORDS SUMMARY | 2024-01-23 21:14 | XMS_ITS | Clinical Summary ---
Author Organization [facility] Address [place], [place] [address] Care Team Providers Care Religious Education Director Name Role Phone Jil Anderson RN Unavailable [phone] Terri Orosco Primary Care Provider [phone] Allergies Active Allergy Reactions Criticality Noted Date [...] Date Status buPROPion (WELLBUTRIN XL) 300 mg Extended-Releas e tablet 300 mg. 07/29/2017 Active fexofenadine (TEMO) 180 mg tablet every day 12/05/2021 Active venlafaxine (EFFEXOR XR) 150 mg Extended-Releas e capsule Take 150 mg by mouth. 09/25/2022 Active melatonin 10 mg chew Chew 10 mg by mouth at bedtime. Active ARIPiprazole (ABILIFY) 20 mg tablet Take 20 mg by mouth once daily. 09/21/2023 Active multivit with iron,minerals (MULTIVITAMIN AND MINERALS ORAL) Take by mouth. Active metFORMIN (GLUCOPHAGE) 500 mg tablet Take 500 mg by mouth two times daily with meals. 12/15/2023 Active omeprazole (PRILOSEC) 20 mg Delayed-Release capsuleIndicati ons:Chronic GERD Take 1 Capsule (20 mg) by mouth once daily before a meal. 90 Capsule 3 01/20/2024 Active hydrocortisone 2.5 % creamIndication s:Dermatitis Apply topically to affected area(s) two times daily. 30 g 01/20/2024 Active omeprazole (PRILOSEC) 20 mg Delayed-Release capsuleIndicati ons:Chronic GERD TAKE 1 CAPSULE BY MOUTH EVERY DAY BEFORE MEALS 100 Capsule 10/13/2023 01/12/20 24 Discontinued omeprazole (PRILOSEC) 20 mg Delayed-Release capsuleIndicati ons:Chronic GERD TAKE 1 CAPSULE BY MOUTH EVERY DAY BEFORE MEALS 30 Capsule 01/12/2024 01/20/20 24 Discontinued(Reo rder (E-cancel not sent)) Active Problems Problem Noted Date Diagnosed Date Pap smear for cervical cancer screening 09/16/19 22 Overview (12/08/2021): 09/2021 NIL/HPV Negative. PLAN: Pap/HPV due 09/2026 [...] high risk pre gnancy, antepartum 11/12/2016 07/23/2017 Overview (06/12/2017): Provider: Tony Lomeli MD - Please call [...] Encounters Date Type Department Care Team Description 01/20/2024 10:45 AM CDT Office Visit [facility] [address] [place] [address] Terri Orosco PA Medicare ANNUAL (subsequent) Visit (33 Year Old/Feeling cold lately- out of the norm/Referral for breast reduction- hurting back /Refills ) 01/20/2024 Travel 01/13/2024 11:00 AM CDT Office Visit [facility] [address] [place] [address] Phan Garcia A, OD Eye Exam (CEE) 01/13/2024 Travel 01/10/2024 [place] [facility] [place] [address] [place] [address] Haley Castorena MD Refill Request (Omeprazole) 12/31/2023 Patient Outreach [address] [address] Raven Alberto AXIS Care Coordination- [facility] (Assessment letters mailed 12/31/2023. Forms received 01/19/2024) 12/30/2023 2:00 PM CDT Patient Outreach [address] [address] Jil Anderson RN AXIS Care Coordination- [employer] (HRA) 12/30/2023 Travel 12/30/2023 Patient Outreach [address] [address] Jil Anderson RN AXIS Care Coordination- [employer] (HRA Confirmation) 12/21/2023 Patient Outreach [address] [address] Jil Anderson RN AXIS Care Coordination- [facility] (Atteot to schedule HRA/BCPR) from Last 3 Months Immunizations Name Administration Dates Next Due COVID-19 vaccine (Pfizer-Bio NTech 30mcg/0.3mL) 12YO+ BIVALENT PF, MDV 03/10/2022 COVID-19 vaccine ([employer]-Bio NTech 30mcg/0.3mL) PF, MDV 2020,08/02/2020 Human Papilloma Virus Vaccine 03/16/2007, 007,09/07/2006 03/11/2007 Influenza Virus, Unspecified 01/17/2020,06/11/19 12,05/14/2006 Influenza, CCIIV3 (Age >=6 [place]) 12/24/2023 Influenza, High-dose Inactivated 01/17/2020 Influenza, IIV3 (Age >=3 years) 06/11/2011,05/14 Influenza, IIV4 03/10/2022, 1,02/05/2019,03/18,01/15/2017 Influenza,CCIIV4 PRESERV FREE 03/04/2023 Tdap 05/15/2017,06/11/2011 Family [...] Answer Date Recorded PHQ-2 TOTAL SCORE 2 01/20/2024 Social Connections Answer Date Recorded Frequency of [...] 0d F Vag PETERSO N,BG TONYA Delivery Location:[facility] Last Filed Vital Signs Vital Sign Reading Time Taken Comments Blood Pressure 115/78 01/20/2024 10:51 AM CDT Pulse 86 01/20/2024 10:51 AM CDT Temperature 36.5 ??C (97.7 ??F) 05/22/2023 7:44 AM CS T Respiratory Rate 16 07/20/2018 11:44 AM UPPER CASER Oxygen Saturation 100% 01/20/2024 10:51 AM CDT Inhaled Oxygen Concentration - - Weight 79.8 kg (176 lb) 01/20/2024 10:51 AM CDT Height 167.6 cm (5' 5.98) 01/20/2024 10:51 AM C DT Body Mass Index 28.42 01/20/2024 10:51 AM CDT Plan of Treatment Health Maintenance Due Date Last Done Comments COVID-19 vaccine series ( season) 2024 03/10/2022, 2020, 08/02/2020 Influenza for age 9-49 01/17/2024 , 03/04/2023, 03/10/2022, Additional history exists BMI (ht and wt on same day) for age 18+ 01/19/2025 01/20/2024, 10/16/2023, 09/30/2022, Additional history exists Depression screening for age 12+ 01/19/2025 01/20/2024, 09/30/2022, 10/17/2021, Additional history exists Pap test for age 21-65 09/19/2026 , 09/19/2021, 07/20/2018, Additional history exists Tetanus booster 05/15/2027 05/15/2017, 06/11/2011 Hepatitis C screening for age 18-79 Completed 04/16/2017 Tdap Completed 05/15/2017, 06/11/2011 HIV for age 15-65 Completed 07/20/2018, , 10/25/2015 Pneumococcal series for age 6-64 Aged Out No longer eligible based on patient's age to complete this topic Goals Goal Patient Goal Type Associated Problems Recent Progress Patient-Stated? Author [place] [facility]: [place] Choices General Yes Tell, Jil Boyer RN Note: Goal Title: [facility] CC - [place]ICES Goals Goals Creation Date: 12/30/23 Goals End Date: 12/28/24 Tonya's [place]ICES goal statements (SMART): I will establish primary care provider by completing annual physical I will continue to manage mental health by taking medications and seeing my MH providers Actions my Dispatcher Chief Coal Slurry (CC) will take to support me in achieving these goals: CC will monitor goal progress at biannual Support Plan review and record updates in [place]CHOICES. Jil Anderson RN..........12/30/2023 4:09 PM [place] [facility]: Health Maintenance General No Jil Anderson RN Note: Health Maintenance Tracking Grid Tonya will engage in management of preventive needs to improve health & wellness. Health Screening Dates of Last Completion & Other Notes Annual Preventive Check-Up 02/08 Mammogram N/A Colorectal Cancer Screening N/A Fall Risk no Flu Vaccine 01/08 Tetanus Booster (Every 10 Years) UTD COVID-19 Vaccine 2021 Hearing Exam N/A Vision Exam 01/07 Dental Exam UTD Aspirin Use N/A Cholesterol Check 02/08 Routine Diabetes: N/A Kidney Function Check Dilated Eye Exam A1C Check (Value) Blood Pressure Check Other (Bone Density, Preventive Vaccines, etc.) Procedures Procedure Name Priority Date/Time Associated Diagnosis Comments CBC WITH AUTO DIFFERENTIAL Routine 01/20/2024 11:52 AM CDT Cold intolerance Fatigue, unspecified type FERRITIN Routine 01/20/2024 11:52 AM CDT Cold intolerance Nonalcoholic steatohepatitis (CORDON) CBC WITH AUTO DIFFERENTIAL Routine 01/20/2024 11:52 AM CDT Cold intolerance Fatigue, unspecified type TSH WITH REFLEX Routine 01/20/2024 11:52 AM CDT Cold intolerance LIPID PANEL W REFLEX MEASURED LDL Routine 01/20/2024 11:52 AM CDT Mixed hyperlipidemia COMP METABOLIC PANEL Routine 01/20/2024 11:52 AM CDT Hepatic steatosis Diabetes mellitus screening UA W/ SEDIMENT EXAM REFLEXED PER CRITERIA Routine 01/20/2024 11:43 AM CDT Urinary frequency SENIOR ACCOUNT MANAGER THIN PREP PAP SCREEN IMAGED Routine 09/19/2021 4:58 PM CDT Screening for malignant neoplasm of cervix ANTI HIV 1/2 Routine 07/20/2018 12:36 PM UPPER CASER Screen for STD (sexually transmitted disease) ANTI HCV Routine 04/16/2017 1:59 PM UPPER CASER Supervision of high risk , antepartum from Last 3 Months or Most Recently Relevant to Health Maintenance Results * (ABNORMAL) CBC WITH AUTO DIFFERENTIAL (01/20/2024 11:52 AM CDT) WHITE BLOOD COUNT 10.7 4.5 - 11.0 thou/cu mm 01/20/2024 11:56 AM CDT [facility] RED BLOOD COUNT 4.16 4.00 - 5.20 mil/cu mm 01/20/2024 11:56 AM CDT [facility] HEMOGLOBIN 12.0 12.0 - 16.0 g/dL 01/20/2024 11:56 AM CDT [facility] HEMATOCRIT 35.9 33.0 - 51.0 % 01/20/2024 11:56 AM CDT [facility] MCV 86 80 - 100 fL 01/20/2024 11:56 AM CDT [facility] MCH 28.8 26.0 - 34.0 pg 01/20/2024 11:56 AM CDT [facility] MCHC 33.4 32.0 - 36.0 g/dL 01/20/2024 11:56 AM CDT [facility] RDW 14.9 11.5 - 15.5 % 01/20/2024 11:56 AM CDT [facility] PLATELET COUNT 372 140 - 440 thou/cu mm 01/20/2024 11:56 AM CDT [facility] MPV 9.3 6.5 - 11.0 fL 01/20/2024 11:56 AM CDT [facility] % NEUT 65.0 % 01/20/2024 11:56 AM CDT [facility] % LYMPH 20.5 % 01/20/2024 11:56 AM CDT [facility] % MONO 10.4 % 01/20/2024 11:56 AM CDT [facility] % EOS 3.6 % 01/20/2024 11:56 AM CDT [facility] % BASO 0.5 % 01/20/2024 11:56 AM CDT [facility] ABSOLUTE NEUTROPHILS 7.0 1.7 - 7.0 thou/cu mm 01/20/2024 11:56 AM CDT [facility] ABSOLUTE LYMPHOCYTES 2.2 0.9 - 2.9 thou/cu mm 01/20/2024 11:56 AM CDT [facility] ABSOLUTE MONOCYTES 1.1(H) <0.9 thou/cu mm 01/20/2024 11:56 AM CDT [facility] ABSOLUTE EOSINOPHILS 0.4 <0.5 thou/cu mm 01/20/2024 11:56 AM CDT [facility] ABSOLUTE BASOPHILS 0.1 <0.3 thou/cu mm 01/20/2024 11:56 AM CDT [facility] Blood BLOOD SPECIMEN / Unknown Venipuncture / Unknown 01/20/2024 11:52 AM CDT 01/20/2024 11:52 AM CDT Terri QUINTEROS HEMATOLOGY Performing Organization Address City/State/[facility] Co de Phone Number [facility] [address] [place] [address], * TSH WITH REFLEX (01/20/2024 11:52 AM CDT) TSH 1.81 0.27 - 4.20 uIU/mL 01/20/2024 11:28 PM CDT [facility] Blood BLOOD SPECIMEN / Unknown Venipuncture / Unknown 01/20/2024 11:52 AM CDT 01/20/2024 11:52 AM CDT Narrative [facility] - 01/20/2024 11:28 PM CDT In Adults, TSH values between 5.00 and 10.00 uIU/ml do not necessarily indicate the presence of Hypothyroidism. Correlation with clinical findings such as presence of goiter and/or Thyroperoxidase (TPO) Antibody may be helpful. For more information please refer to FERMIN 2004; 291: 228-238. Terri QUINTEROS CHEMISTRY [facility] [address] [place] [address], * (ABNORMAL) LIPID PANEL W REFLEX MEASURED LDL (01/20/2024 11:52 AM CDT) CHOLESTEROL,TOTAL 257(H) 100 - 199 mg/dL 01/20/2024 11:28 PM CDT [facility] Comment: Cholesterol, Total Reference Ranges Desirable <200 mg/dL Borderline 200-239 mg/dL High >=240 mg/dL TRIGLYCERIDES 173(H) <150 mg/dL 01/20/2024 11:28 PM CDT [facility] HDL CHOLESTEROL 66 >40 mg/dL 11:28 PM CDT [facility] NON-HDL CHOLESTEROL 191(H) <145 mg/dl 01/20/2024 11:28 PM CDT [facility] CHOL/HDL RATIO 3.89 <4.50 01/20/2024 11:28 PM CDT [facility] LDL CHOLESTEROL 156(H) <=130 mg/dL 01/20/2024 11:28 PM CDT [facility] VLDL CHOLESTEROL 35(H) <=30 mg/dL 01/20/2024 11:28 PM CDT [facility] PROVIDER ORDERED STATUS RANDOM 01/20/2024 11:28 PM CDT [facility] Blood BLOOD SPECIMEN / Unknown Venipuncture / Unknown 01/20/2024 11:52 AM CDT 01/20/2024 11:52 AM CDT Terri QUINTEROS CHEMISTRY [facility] [address] [place] [address], * FERRITIN (01/20/2024 11:52 AM CDT) FERRITIN 19.4 15.0 - 150.0 ng/mL 01/20/2024 11:28 PM CDT [facility] Blood BLOOD SPECIMEN / Unknown Venipuncture / Unknown 01/20/2024 11:52 AM CDT 01/20/2024 11:52 AM CDT Terri QUINTEROS CHEMISTRY Performing Organization Address City/[facility] [address]/ZIP Co de Phone Number [facility] [address] [place] [address], * (ABNORMAL) COMP METABOLIC PANEL (01/20/2024 11:52 AM CDT) SODIUM 139 136 - 145 mmol/L 01/20/2024 11:31 PM CDT [facility] POTASSIUM 3.8 3.5 - 5.1 mmol/L 01/20/2024 11:31 PM CDT [facility] CHLORIDE 104 98 - 107 mmol/L 01/20/2024 11:31 PM CDT [facility] CO2,TOTAL 26 22 - 29 mmol/L 01/20/2024 11:31 PM CDT [facility] ANION GAP 9 5 - 18 01/20/2024 11:31 PM CDT [facility] GLUCOSE 77 70 - 99 mg/dL 01/20/2024 11:31 PM CDT [facility] CALCIUM 9.3 8.6 - 10.0 mg/dL 01/20/2024 11:31 PM CDT [facility] BUN 17 6 - 20 mg/dL 01/20/2024 11:31 PM CDT [facility] CREATININE 0.90 0.50 - 0.90 mg/dL 01/20/2024 11:31 PM CDT [facility] BUN/CREAT RATIO 19 10 - 20 11:31 PM T [facility] eGFR 86(L) >90 mL/min/1.7 3m2 01/20/2024 11:31 PM T [facility] Comment:As of 2021, eG FR is calculated by the CKD-EPI creatinine equation without race adjustment. ??eGFR can be influenced by muscle mass, exercise, and diet. ??The reported eGFR is an estimation only and is only applicable if the renal function is stable. ALBUMIN 4.2 4.0 - 4.9 g/dL 01/20/2024 11:31 PM CDT [facility] PROTEIN,TOTAL 7.1 6.0 - 8.0 g/dL 01/20/2024 11:31 PM T [facility] BILIRUBIN,TOTAL <0.2 0.0 - 1.2 mg/dL 01/20/2024 11:31 PM T [facility] ALK PHOSPHATASE 78 35 - 104 IU/L 01/20/2024 11:31 PM T [facility] ALT (SGPT) 18 10 - 35 IU/L 01/20/2024 11:31 PM T [facility] AST (SGOT) 22 10 - 35 IU/L 01/20/2024 11:31 PM T [facility] Blood BLOOD SPECIMEN / Unknown Venipuncture / Unknown 01/20/2024 11:52 AM CDT 01/20/2024 11:52 AM CDT Terri QUINTEROS CHEMISTRY [facility] [address] [place] [address], * (ABNORMAL) UA W/ SEDIMENT EXAM REFLEXED PER CRITERIA (01/20/2024 11:43 AM CDT) COLOR Yellow Yellow Color 01/20/2024 11:55 AM CDT [facility] CLARITY Clear Clear Clarity 01/20/2024 11:55 AM CDT [facility] SPECIFIC GRAVITY,URINE >=1.030(A) 1.010, 1.015, 1.020, 1.025 01/20/2024 11:55 AM CDT [facility] PH,URINE 5.5 6.0, 7.0, 8.0, 5.5, 6.5, 7.5, 8.5 01/20/2024 11:55 AM CDT [facility] UROBILINOGEN, QUALITATIVE Normal Normal EU/dl 01/20/2024 11:55 AM CDT [facility] PROTEIN, URINE Negative Negative mg/dL 01/20/2024 11:55 AM CDT [facility] GLUCOSE, URINE Negative Negative mg/dL 01/20/2024 11:55 AM CDT [facility] KETONES,URINE Trace(A) Negative mg/dL 01/20/2024 11:55 AM CDT [facility] BILIRUBIN,URI NE Negative Negative 01/20/2024 11:55 AM CDT [facility] OCCULT BLOOD,URINE Negative Negative 01/20/2024 11:55 AM CDT [facility] NITRITE Negative Negative 01/20/2024 11:55 AM CDT [facility] LEUKOCYTE ESTERASE Negative Negative 01/20/2024 11:55 AM CDT [facility] Urine URINE SPECIMEN / Unknown Non-Blood / Unknown 01/20/2024 11:43 AM CDT 01/20/2024 11:51 AM CDT Terri QUINTEROS URINE [facility] [address] [place] [address], * SENIOR ACCOUNT MANAGER THIN PREP PAP SCREEN IMAGED (09/19/2021 4:58 PM CDT) Case Report Gynecologic Cytology Report ? Case: [id number] ? Authorizing Provider: ??Prerna Garza PA ?Collected: ? 09/19/2021 1658 ? Ordering Location: ? [facility] ?? Received: ?09/19/2021 1713 ? Clinic ? First Screen: ?Luisito, Columba ? Pathologist: ? Pradip Daniel Jr., ? MD ? Specimen: ?SENIOR ACCOUNT MANAGER ThinPrep Vial Screening, Cervical ? 10/08/2021 12:40 PM CDT [facility] INTERPRETATION/ RESULT NEGATIVE FOR INTRAEPITHELIAL LESION OR MALIGNANCY (NIL) (none) 10/08/2021 12:40 PM CDT [facility] R NON-NEOPLASTIC FINDING(S) Reactive cellular changes associated with inflammation/repa ir 10/08/2021 12:40 PM CDT [facility] SPECIMEN ADEQUACY Satisfactory for evaluation Endocervical component present 10/08/2021 12:40 PM CDT [facility] HPV REQUEST HPV and PAP 10/08/2021 12:40 PM CDT [facility] Date of LMP hormonally suppressed 10/08/2021 12:40 PM CDT [facility] Last Pap Date 07/20/18 10/08/2021 12:40 PM CDT [facility] Last Pap Result NIL 12:40 PM CDT [facility] Abnormal Pap or Capitan Bx in last 5 years No 10/08/2021 12:40 PM CDT [facility] Menstrual Status Hormonally Suppressed 10/08/2021 12:40 PM CDT [facility] Capitan Bx Done Today No 10/08/2021 12:40 PM CDT [facility] Additional Information None given 10/08/2021 12:40 PM CDT [facility] Comment: Cytology is screened at [facility], Central Laboratory - [address], [place] [address] and [facility] - [address] [place] [address], [place] [address] and [facility] - [address] [place] [address] Interpreted at [facility] - [address] [place] [address], [place] [address] Automated Review Successful 10/08/2021 12:40 PM CDT [facility] Comment:Specimen processed s uccessfully by automated information technology project manager device, [employer] System, [employer] ANCILLARY TESTING SENIOR ACCOUNT MANAGER HPV Ordered, Please see separate report 10/08/2021 12:40 PM CDT [facility] Note The pap test is [...] and malignant lesions. 10/08/2021 12:40 PM CDT [facility] Other (Cervical) Non-Blood / Unknown 09/19/2021 4:58 PM CDT 09/19/2021 5:13 PM CDT Prerna QUINTEROS PATHOLOGY/CYTOLOGY [facility] [address] [place] [address], [place] * ANTI HIV 1/2 (07/20/2018 12:36 PM UPPER CASER) HIV-1/HIV-2 ANTIBODY Non-Reacti ve Non-Reacti ve 07/20/2018 7:14 PM UPPER CASER [facility] Comment:HIV-1 p24 and HIV-1/ HIV-2 Ab not detected. Blood BLOOD SPECIMEN / Unknown Butterfly / Unknown 07/20/2018 12:36 PM UPPER CASER 07/20/2018 12:36 PM UPPER CASER Tony Lomeli MD SEND OUTS [facility] [address] [place] [address], [place] * ANTI HCV (04/16/2017 1:59 PM UPPER CASER) HEPATITIS C ANTIBODY Non-Reacti ve Non-Reacti ve 04/16/2017 6:55 PM UPPER CASER [facility] Blood BLOOD SPECIMEN / Unknown Venipuncture / Unknown 04/16/2017 1:59 PM UPPER CASER 04/16/2017 1:59 PM UPPER CASER Narrative [facility] - 04/16/2017 6:55 PM UPPER CASER Antibodies to HCV not detected; does not exclude the possibility of exposure to HCV. Tony Lomeli MD SEND OUTS [facility] [address] [place] [address], from Last 3 Months or Most Recently Relevant to Health Maintenance Advance Directives * Full Code (Latest Code [...] 3:11 PM 08/27/2009 7:09 PM Care Teams Religious Education Director Relationship Specialty Start Date End Date Terri Orosco PA [address] [place] [address] PCP - General Physician Receiving Lead 01/20/24 Jil Anderson, RN [address] [place] [address] [facility] Care Coordination Dispatcher Chief Coal Slurry 06/28/19 [facility] [address], [place] [address] Psychiatry Psychiatry 12/17/23 [facility] [address] [place] [address] Psychologist Psychology 12/17/23
== END 2024-01-23 21:27 | disposition home or self-care (01) ==
LOC: ED 21:12
PROVIDERS: Emergency Provider Family Medicine; PCP Student in an Organized Health Care Education/Training Program
DX: F32.A Depression, unspecified (principal)
CPT/HCPCS: 99283; 99284

== ENCOUNTER 2024-04-25 19:50 | Emergency (ER) | payer MEDICARE, OTHER, SELFPAY ==
[2024-04-25 20:17] VITALS: BP 125/82; PULSE 86; RESP 14; TEMP 36.2; O2SAT 98; BMI 26.8
--- NOTE | 2024-04-25 20:48 | ED_ITS ---
HPI - General Adult General Time Seen by Provider: 20:48 Date Seen: 04/25/24 Chief complaint: Post Op Complication Stated complaint: Open sore on incision site Time Seen by Provider: 04/25/24 20:21 Source: patient and RN notes reviewed Mode of arrival: ambulatory Limitations: no limitations History of Present Illness HPI narrative: This 33-year-old female is coming in with an area on her left breast that opened up. She had a breast reduction on February 28, no complications. Yesterday she noticed a little spot, this did open up in she got a little yellowish d rainage that looked like a small amount of pus. She is not having significant pain, no fevers. There has been a little bit of bloody drainage. Denies any history of MRSA. Related Data Home Medications ?Medication ?Instructions ?Recorded ?Confirmed aripiprazole 30 mg tablet 20 mg PO DAILY 12/05/21 11/19/23 bupropion HCl 300 mg 24 hr tablet, 300 mg PO DAILY 12/05/21 11/19/23 extended release fexofenadine 180 mg tablet 180 mg PO QDAY 12/05/21 11/19/23 (María Allergy) omeprazole 20 mg capsule,delayed 20 mg PO DAILY 01/13/22 11/19/23 release melatonin 5 mg tablet 5 mg PO HS PRN 09/11/22 11/19/23 venlafaxine 150 mg 150 mg PO DAILY 07/26/23 11/19/23 capsule,extended release 24 hr Previous Rx's ?Medication ?Instructions ?Recorded aripiprazole 15 mg tablet (Abilify) 15 mg PO DAILY #15 tabs 01/23/24 cephalexin 500 mg tablet 500 mg PO TID #20 tabs 04/25/24 Allergies Allergy/AdvReac Type Severity Reaction Status Date / Time azithromycin Allergy Severe Throat Verified 04/25/24 20:16 swelling Review of Systems Narrative: As per HPI. [facility] Medical History (Updated 04/25/24 @ 21:00 by Heidi Flynn MD) Bilateral dry eyes ?H04.123 - Dry eye syndrome of bilateral lacrimal glands (ICD-10) Myopia, bilateral ?H52.13 - Myopia, bilateral (ICD-10) Regular astigmatism, bilateral ?H52.223 - Regular astigmatism, bilateral (ICD-10) Calculus of gallbladder without cholecystitis without obstruction ?K80.20 - Calculus of gallbladder without cholecystitis without obstruction (ICD-10) Hepatic steatosis ?K76.0 - Fatty (change of) liver, not elsewhere classified (ICD-10) Abnormal liver enzymes ?R74.8 - Abnormal levels of other serum enzymes (ICD-10) 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 (ICD-10) Moderate episode of recurrent major depressive disorder ?F33.1 - Major depressive disorder, recurrent, moderate (ICD-10) Mild intellectual disabilities ?F70 - Mild intellectual disabilities (ICD-10) Chronic GERD ?K21.9 - Gastro-esophageal reflux disease without esophagitis (ICD-10) Hyperlipidemia, unspecified ?E78.5 - Hyperlipidemia, unspecified (ICD-10) Autism spectrum disorder ?F84.0 - Autistic disorder (ICD-10) Constipation, unspecified ?K59.00 - Constipation, unspecified (ICD-10) Allergic rhinitis, unspecified ?J30.9 - Allergic rhinitis, unspecified (ICD-10) Depression with anxiety ?F41.8 - Other specified anxiety disorders (ICD-10) Surgical History (Updated 04/25/24 @ 20:57 by Heidi Flynn MD) Status post breast reduction ?Z98.890 - Other specified postprocedural states (ICD-10) Perineal abscess (02/2009) ?L02.215 - Cutaneous abscess of perineum (ICD-10) S/P tonsillectomy and adenoidectomy (2014) ?Z90.89 - Acquired absence of other organs (ICD-10) History of tubal ligation (06/2017) ?Z98.51 - Tubal ligation status (ICD-10) Family History Father High cholesterol Maternal Grandmother Diabetes Social History Narrative: Single 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 Highest level of school completed/degree received: some college, no degree Smoking Status: Never smoker How often do you have a drink containing alcohol: monthly or less How often do you have six or more drinks on one occasion: Never AUDIT-C Alcohol total score: 1 Non-prescribed substance use: denies use Caffeine: No service: No Exam Const: Vital Signs, click to edit/add: Vital Signs - 24 hr 04/25/24 20:17 Temperature 97.2 F L Pulse Rate [Pulse Oximeter] 86 Respiratory Rate 14 Blood Pressure [Ri ght Upper Arm] 125/82 Pulse Oximetry 98 Oxygen Delivery Me thod Room Air Patient is alert, interactive, no apparent distress. She has the circular scar around the Abhijit a that is intact, well-healed. There is the central vertical scar on the inferior portion of the breast. At the top of this there is a small little 2-3 mm scabbed area with a little bit of a crater affect, looks like this could have been a bit of wound dehiscence from underlying possible sutures. There is minimal erythema around it, there is no fluctuance, I cannot cause any drainage, no significant warmth, not indurated. Documenting provider has reviewed patient's vital signs: yes Course Course ED Course: Have discussed with patient that I a cannot see her surgical report to know if there are deep sutures. I suspect that this just might be extravasation of apart of a deep suture. It is also possible that there could be minute infection starting, cellulitis. We have discussed options, will initiate oral antibiotics. Will give her 500 mg oral Keflex here for any potential wound infection coverage. Will send course in to complete to her pharmacy which she can bean picker tomorrow. She will contact her surgeon for recheck with them. Vital Signs Vital signs: Initial Vital Signs Temperature 97.2 F L 04/25/24 20:17 Temperature Source Temporal Artery Scan 04/25/24 20:17 Pulse Rate 86 04/25/24 20:17 Pulse Rhythm Regular 04/25/24 20:17 Respiratory Rate 14 04/25/24 20:17 Blood Pressure 125/82 04/25/24 20:17 Blood Pressure Mean 96 04/25/24 20:17 Blood Pressure Position Sitting 04/25/24 20:17 Pulse Oximetry 98 04/25/24 20:17 Oxygen Delivery Method Room Air 04/25/24 20:17 Vital Signs Temperature 97.2 F L 04/25/24 20:17 Pulse Rate 86 04/25/24 20:17 Respiratory Rate 14 04/25/24 20:17 Blood Pressure 125/82 12/09/24 20:17 Pulse Oximetry 98 04/25/24 20:17 Oxygen Delivery Method Room Air 04/25/24 20:17 Temperature 97.2 F L 04/25/24 20:17 Pulse Rate 86 04/25/24 20:17 Respiratory Rate 14 04/25/24 20:17 Blood Pressure 125/82 04/25/24 20:17 Pulse Oximetry 98 04/25/24 20:17 Oxygen Delivery Method Room Air 04/25/24 20:17 Medications Administered Medications: Generic Name Dose Route Start Last Admin Trade Name Balwinder PRN Reason Stop Dose Admin Cephalexin HCl 500 mg 04/25/24 20:53 04/25/24 21:00 Cephalexin 500 Mg Capsule PO 04/25/24 20:54 500 mg ONCE ONE Administration Discharge Plan Discharge Clinical Impression: Surgical wound dehiscence Qualifiers: Encounter type: initial encounter Qualified Code(s): T81.31XA - Disruption of external operation (surgical) wound, not elsewhere classified, initial encounter Patient Disposition: Home, Self-Care Condition: Stable Instructions: Wound Dehiscence (ED) Additional Instructions: Please contact your surgeon to get in for a follow-up. If there were deep sutures, I do suspect that this might just be a little extravasation of underlying suture material. We will cover for possible infection as we certainly would not want this to worsen. Have written for Keflex, next dose is tomorrow morning and please take as prescribed. If you note that this wound is becoming more red, painful, develops fever, have more drainage, need to be re- evaluated. Continue to follow any potential postsurgical restrictions that the surgeon advised. Prescriptions: New cephalexin 500 mg tablet 500 mg PO TID Qty: 20 0RF No Action bupropion HCl 300 mg tablet extended release 24 hr 300 mg PO DAILY aripiprazole 30 mg tablet 20 mg PO DAILY fexofenadine [María Allergy] 180 mg tablet 180 mg PO QDAY omeprazole 20 mg capsule,delayed release(DR/EC) 20 mg PO DAILY melatonin 5 mg tablet 5 mg PO HS PRN aripiprazole [Abilify] 15 mg tablet 15 mg PO DAILY Qty: 15 0RF venlafaxine 150 mg capsule,extended release 24hr 150 mg PO DAILY Follow Up/Referrals: Terri Orosco PA-C [Primary Care Provider] - [facility] Inst[facility]
[2024-04-25] MEDS: cephALEXin 500 MG CAPSULE PO (21:00)
--- OUTSIDE RECORDS SUMMARY | 2024-04-25 21:04 | XMS_ITS | Clinical Summary ---
Author Organization [employer] [facility] Address [place], [place] [address] Care Team Providers Care Insights Manager Name Role Phone Jil Anderson RN Unavailable [phone] Terri Orosco Primary Care Provider [phone] Allergies Active Allergy Reactions Criticality Noted Date [...] Left side went numb per pt Medications buPROPion (WELLBUTRIN XL) 300 mg Extended-Releas e [...] a meal. 90 Capsule 3 01/20/2024 Active Active Problems Problem Noted Date Diagnosed Date Macromastia 02/29/2024 Pap smear for cervical cancer screening 09/16/19 [...] cyst 03/02/2017 04/16/20 17 Rh negative, antepartum 11/26/2016/12/2017 Supervision of high risk pre gnancy, antepartum [...] Planning/Tubal - wants tubal - consent signed 1/26/18 Labor/Delivery - open to options for pain [...] Encounters Date Type Department Care Team Description 04/11/2024 1:15 PM SALES ENABLEMENT LEAD Orders Only [facility] [address] [place] [address] Lab, [place] [facility] 04/11/2024 8:00 AM SALES ENABLEMENT LEAD Telemedicine [facility] [address] [place] [address] Prerna Garza PA Telehealth (Possible urinary tract infection ) 04/11/2024 Travel 04/05/2024 3:25 PM SALES ENABLEMENT LEAD Office Visit [facility] [address] [place] [address] Brittani Fontana PA Sinus Problem (Sinus congestion, post nasal drip, started about a week ago) 04/05/2024 Travel 03/22/2024 11:00 AM SALES ENABLEMENT LEAD Office Visit [facility] [address] [address] Tj Lama MD Surgical Followup (s/p Bilateral Breast Reduction on 02/29/2024 at [facility]) 03/22/2024 Telephone [facility] [address] [address] Tj Lama MD Form (Short Term Disability Insurance form- From [employer]) 03/22/2024 Travel 03/08/2024 10:15 AM CDT Office Visit [facility] [address] [address] Tj Lama MD Surgical Followup (s/p Bilateral Breast Reduction on 02/29/2024) 03/07/2024 Travel 03/03/2024 Telephone [facility] [address] [address] Tj Lama MD Results; Appointment 03/01/2024 8:45 AM CDT Nurse/Clinic Staff Only [facility] [address] [place] [address] Surgical Followup (s/p Bilateral breast reduction with Dr. Lama on 02/28); Phone Visit 03/01/2024 Orders Only [facility] [address] [place] [phone] Randee Nichole PA <No scans attached> 02/29/2024 6:14 AM CDT - 02/29/2024 11:59 PM CDT Hospital Encounter Tj Lama MD 02/29/2024 Lab Requisition [facility] [phone] Tj Lama MD 02/29/[address] [address] Tj Lama MD Medication Management 02/29/2024 Surgery [facility] [address] [place] [address] Tj Lama MD Bilateral Breast Reduction 02/29/2024 Orders Only [facility] [address] [facility] [address] [place] [address] Tj Lama MD Medication Management 02/29/2024 Orders Only [facility] [address] [facility] [address] [place] [address] Randee Nichole PA <No scans attached> 02/23/2024 3:15 PM CDT Office Visit [facility] [address] [place] [address] Terri Orosco PA STD (New partner-wanting STD testing-no symptoms) 02/23/2024 Travel 02/18/2024 1:40 PM CDT Office Visit [facility] [address] [place] [address] Brittani Fontana PA URI 02/18/2024 Travel 02/08/2024 Telephone [facility] [address] [place] [address] Tj Lama MD Results (Mammogram) 02/04/2024 11:55 AM CDT Preop Visit [facility] [address] [place] [address] Brittani Fontana PA Pre-Op Exam (DOS-02/29/2024) 02/04/2024 8:40 AM CDT Ancillary Procedure [facility] [address] [place] [address] 02/04/2024 Travel 02/03/2024 Telephone [facility] [address] [address] Tj Lama MD Form (Work Restriction Form/Medical Leave Certification) 01/26/2024 9:30 AM CDT Office Visit [facility] [address] [address] Tj Lama MD Consult (Breast Reduction) 01/26/2024 Telephone [facility] [address] [facility] [address] [place] [address] Tj Lama MD Follow Up 01/26/2024 Travel from Last 3 Months Immunizations Name Administration Dates Next Due COVID-19 vaccine (Pfizer-Bio NTech 30mcg/0.3mL) 12YO+ BIVALENT PF, MDV 03/10/2022 COVID-19 vaccine (Pfizer-Bio NTech 30mcg/0.3mL) PF, MDV 2020,08/02/2020 Human Papilloma Virus Vaccine 03/16/2007, 007,09/07/2006 03/11/2007 Influenza Virus, Unspecified 01/17/2020,06/11/19 12,05/14/2006 Influenza, CCIIV3 (Age >=6 M O) (Egg Free) 12/24/2023 Influenza, High-dose Inactivated 01/17/2020 Influenza, IIV3 [...] Sister Joyce Anesthesia Problem No Family History Cancer-breast No Family History Relation Name Status Comments Daughter Alive Father Dayron Alive Maternal Grandfather Joby Alive Maternal Grandmother Reina Mother Vani Alive Paternal Grandfather Ricardo Alive Paternal Grandmother Susie Alive Sister Joyce Alive Social History Tobacco Use Types Packs/Day Years Used Date Smoking Tobacco: Never Passive Smoke Exposure: Never Smokeless Tobacco: Never Tobacco Cessation:Counseling Given: No Alcohol Use Standard Drinks/Week Comments Not Currently 1 (1 standard drink = 0.6 oz pur e alcohol) occasionally PHQ-2 Answer Date Recorded PHQ-2 TOTAL SCORE 2 01/20/2024 Social Connections Answer Date Recorded Do you often feel lonely or isolated from those around you? 0 05/22/2023 Financial Resource Strain Answer Date R ecorded Difficulty of Paying Living Expenses 3 05/22/2023 Difficulty of Paying Living Expenses Not on file 05/22/2023 Food Insecurity Answer Date Recorded Do you worry your food will run out before you are able to buy more? 1 05/22/2023 Transportation Needs Answer Date Record ed Does lack of transportation keep you from medica l appointments? 1 05/22/2023 Does lack of transportation keep you from work, meetings or getting things that you need? 1 05/22/2023 Housing Stability Answer Date Recorded What is your housing situation today? 1 05/22/2023 Comments No Sex and Gender Information Value Date Recorded Sex Assigned at Not on file Legal Sex Female 5:46 AM SALES ENABLEMENT LEAD Gender Identity Not on file Sexual Orientation Not on file Occupation Industry Job Start Date Job End Date Unemployed Not on file Not on file Not on file Obstetrics History Para Term AB IAB SAB Ectopic Multiple Livin g Live Births 1 1 0 1 0 0 0 0 0 0 0 Date Outcome GA Total Labor Labor/2nd/3rd Weight Sex Type Anes PTL Gloria A1 A5 Name Clin 018 36w 0d F Vag KESHIA N,BG [place] Delivery Location:[facility] Last Filed Vital Signs Vital Sign Reading Time Taken Comments Blood Pressure 117/82 04/05/2024 3:28 PM SALES ENABLEMENT LEAD Pulse 79 04/05/2024 3:28 PM SALES ENABLEMENT LEAD Temperature 37.1 C (98.8 F) 02/04/2024 11:29 AM CDT Respiratory Rate 16 01/26/2024 9:22 AM CDT Oxygen Saturation 96% 04/05/2024 3:28 PM SALES ENABLEMENT LEAD Inhaled Oxygen Concentration - - Weight 76 kg (167 lb 8 oz) 04/05/2024 3:28 PM CS T Height 167.6 cm (5' 6) 02/04/2024 11:29 AM CDT Body Mass Index 27.04 02/04/2024 11:29 AM CDT Plan of Treatment Upcoming Encounters Date Type Department Care Team (Late st Contact Info) Description 06/14/2024 11:00 AM SALES ENABLEMENT LEAD Office Visit [facility] [address] [facility] [address] [place] [address] Tj Lama MD 1601 [facility] [address] [address] Health Maintenance Due Date Last Done Comments COVID-19 vaccine series ( season) 2024 03/10/2022, 2020, 08/02/2020 Influenza for age 9-49 01/17/2024 , 03/04/2023, 03/10/2022, Additional history exists Depression screening for age 12+ 01/19/2025 01/20/2024, 09/30/2022, 10/17/2021, Additional history exists BMI (ht and wt on same day) for age 18+ 02/03/2025 02/04/2024, 01/26/2024, 01/20/2024, Additional history exists Pap test for age 21-65 09/19/2026 , 09/19/2021, 07/20/2018, Additional history exists Tetanus booster 05/15/2027 05/15/2017, 06/11/2011 Tdap Completed 05/15/2017, 06/11/2011 HIV for age 15-65 Completed 02/23/2024, , 11/24/2016, Additional history exists Hepatitis C screening for age 18-79 Completed 02/23/2024, 04/16/2017 Pneumococcal series for age 6-64 Aged Out No longer eligible based on patient's age to complete this topic Goals Goal Patient Goal Type Associated Problems Recent Progress Patient-Stated? Author [employer] CC: [place] Choices General Yes TellJil RN Note: Goal Title: AXIS CC - [place] Goals Goals Creation Date: 12/30/23 Goals End Date: 12/28/24 Stephans [place]ICES goal statements (SMART): I will establish primary care provider by completing annual physical I will continue to manage mental health by taking medications and seeing my MH providers Actions my Hand Polisher (CC) will take to support me in achieving these goals: CC will monitor goal progress at biannual Support Plan review and record updates in [place]CHOICES. Jil Anderson RN..........12/30/2023 4:09 PM [employer] CC: Health Maintenance General No Jil Anderson [...] Date/Time Associated Diagnosis Comments URINALYSIS MICROSCOPIC Routine 04/11/2024 2:53 PM SALES ENABLEMENT LEAD Urinary urgency URINE CULTURE Routine 04/11/2024 2:53 PM SALES ENABLEMENT LEAD Urinary urgency UA W/ SEDIMENT EXAM REFLEXED PER CRITERIA Routine 04/11/2024 2:53 PM SALES ENABLEMENT LEAD Urinary urgency URINALYSIS [facility] ONLY POC DIP ([facility]) Routine 04/11/2024 1:13 PM SALES ENABLEMENT LEAD Urinary urgency LAB TRACKING EVENT Routine 02/29/2024 10 :22 AM CDT PATH TISSUE EXAM Routine 02/29/2024 8:20 AM CDT HIV 1/2 ANTIGEN/ANTIBODY FOURTH GENERATION W/RFL ([facility]) Routine 02/23/2024 3:28 PM CDT Screen for STD (sexually transmitted disease) CHLAMYDIA/NEISSERIA GONORRHOEAE RNA, TMA, UROGENITAL ([facility]) Routine 02/23/2024 3:28 PM CDT Screen for STD (sexually transmitted disease) ANTI HCV Routine 02/23/2024 3:28 PM CDT Screen for STD (sexually transmitted disease) TREPONEMA PALLIDUM Routine 02/23/2024 3: 28 PM CDT Screen for STD (sexually transmitted disease) XR MAMMO BILAT SCREENING Routine 02/04/2024 8:47 AM CDT Visit for screening mammogram RAISE DRILLER THIN PREP PAP SCREEN IMAGED Routine 09/19/2021 4:58 PM CDT Screening for malignant neoplasm of cervix SURGICAL PROCEDURE (TYPE PROCEDURE DESCRIPTION BELOW) Elective Macromastia from Last 3 Months or Most Recently Relevant to Health Maintenance Results * URINALYSIS MICROSCOPIC (04/11/2024 2:53 PM SALES ENABLEMENT LEAD) RBC 0-2 0-2, None Seen /HPF 04/12/2024 5:32 AM SALES ENABLEMENT LEAD [facility] WBC 0-2 0-2, 3-5, None Seen /HPF 04/12/2024 5:32 AM SALES ENABLEMENT LEAD [facility] BACTERIA None Seen None Seen, Rare, Few Bacteria/ HPF 04/12/2024 5:32 AM SALES ENABLEMENT LEAD [facility] EPITHELIAL CELLS None Seen None Seen, Few Epi/HPF 04/12/2024 5:32 AM SALES ENABLEMENT LEAD [facility] HYALINE CASTS 3-5 0-2, 3-5 /LPF 04/12/2024 5:32 AM SALES ENABLEMENT LEAD [facility] Urine URINE SPECIMEN / Unknown Non-Blood / Unknown 04/11/2024 2:53 PM SALES ENABLEMENT LEAD 04/11/2024 2:53 PM SALES ENABLEMENT LEAD us Prerna QUINTEROS URINE Final Resu lt [facility] [address] [place] [address], * URINE CULTURE (04/11/2024 2:53 PM SALES ENABLEMENT LEAD) CULTURE <10,000 CFU/mL multiple organisms 04/13/2024 8:12 AM SALES ENABLEMENT LEAD [facility] Urine URINE SPECIMEN / Unknown Non-Blood / Unknown 04/11/2024 2:53 PM SALES ENABLEMENT LEAD 04/11/2024 2:53 PM SALES ENABLEMENT LEAD us Prerna QUINTEROS MICROBIOLOGY Final Resu lt [facility] [address] [place] [address], [place] * (ABNORMAL) UA W/ SEDIMENT EXAM REFLEXED PER CRITERIA (04/11/2024 2:53 PM SALES ENABLEMENT LEAD) COLOR Yellow Yellow Color 04/12/2024 5:32 AM SALES ENABLEMENT LEAD [facility] CLARITY Turbid(A) Clear Clarity 04/12/2024 5:32 AM SALES ENABLEMENT LEAD [facility] SPECIFIC GRAVITY,URINE 1.020 1.010, 1.015, 1.020, 1.025 04/12/2024 5:32 AM SALES ENABLEMENT LEAD [facility] PH,URINE 8.0 6.0, 7.0, 8.0, 5.5, 6.5, 7.5, 8.5 04/12/2024 5:32 AM SALES ENABLEMENT LEAD [facility] UROBILINOGEN, QUALITATIVE Normal Normal EU/dl 04/12/2024 5:32 AM [facility] PROTEIN, URINE Trace(A) Negative mg/dL 04/12/2024 5:32 AM SALES ENABLEMENT LEAD [facility] GLUCOSE, URINE Negative Negative mg/dL 04/12/2024 5:32 AM SALES ENABLEMENT LEAD [facility] KETONES,URINE Trace(A) Negative mg/dL 04/12/2024 5:32 AM [facility] BILIRUBIN,URI NE Negative Negative 04/12/2024 5:32 AM [facility] OCCULT BLOOD,URINE Small(A) Negative 04/12/2024 5:32 AM SALES ENABLEMENT LEAD [facility] NITRITE Negative Negative 04/12/2024 5:32 AM SALES ENABLEMENT LEAD [facility] LEUKOCYTE ESTERASE Trace(A) Negative 04/12/2024 5:32 AM SALES ENABLEMENT LEAD [facility] Urine URINE SPECIMEN / Unknown Non-Blood / Unknown 04/11/2024 2:53 PM SALES ENABLEMENT LEAD 04/11/2024 2:53 PM SALES ENABLEMENT LEAD us Prerna QUINTEROS URINE Final Resu lt [facility] [address] [place] [address], * (ABNORMAL) POCT Urinalysis Dipstick Only (04/11/2024 1:13 PM SALES ENABLEMENT LEAD) PH 8.5(H) 5.0 - 8.0 [facility] SPECIFIC GRAVITY 1.020 1.001 - 1.035 [facility] GLUCOSE NEGATIVE NEGATIVE [facility] BILIRUBIN NEGATIVE NEGATIVE [facility] KETONES TRACE(A) NEGATIVE [facility] OCCULT BLOOD 2+(A) NEGATIVE [facility] PROTEIN NEGATIVE NEGATIVE [facility] NITRITE NEGATIVE NEGATIVE [facility] LEUKOCYTE ESTERASE NEGATIVE NEGATIVE [facility] Urine URINE SPECIMEN / Unknown 04/11/2024 1:13 PM SALES ENABLEMENT LEAD 04/11/2024 1:13 PM SALES ENABLEMENT LEAD us Prerna QUINTEROS URINE Final Resu lt Performing Organization Address City/[facility]/ZIP Co de Phone Number [facility] [address] [place] [address], [place] [phone] [facility] [address] [place] [address] * LAB TRACKING EVENT (02/29/2024 10:22 AM CDT) Other (Other) Client Collect / Unknown 02/29/2024 10:22 AM CDT 02/29/2024 10:37 PM CDT Tj Lama MD LAB BILL ONLY Final R esult [facility] [address] [place] [address], [place] * PATH TISSUE EXAM (02/29/2024 8:20 AM CDT) Case Report Pathology Report Case: [id number] Authorizing Provider: Tj Lama MD Collected: 02/29/2024 0820 Ordering Location: [facility] Received: 03/01/2024 0749 Pathologist: Laura Rouse MD Specimens: A) - Right Breast Reduction B) - Left Breast Reduction 03/02/2024 4:51 PM CDT [facility]-C ENTRAL LABORATORY Final Diagnosis A) RIGHT BREAST, REDUCTION MAMMOPLASTY: 1. Benign breast tissue with no diagnostic abnormalities 2. Skin with no diagnostic abnormalities 3. Negative for atypia and malignancy B) LEFT BREAST, REDUCTION MAMMOPLASTY: 1. Benign breast tissue with no diagnostic abnormalities 2. Skin with no diagnostic abnormalities 3. Negative for atypia and malignancy 03/02/2024 4:51 PM CDT [facility] [employer] LABORATORY-C ENTRAL LABORATORY Clinical Information Hypertrophy of breasts. 03/02/2024 4:51 PM CDT [facility] ENTRAL LABORATORY Gross Description A) Received in formalin, labeled with the patient's name and right breast tissue, is a 636.4 g, 23.5 x 20.5 x 4.6 cm unoriented aggregate of yellow-abarca fibrofatty tissue and abarca smooth unremarkable skin. The specimen is serially sectioned revealing yellow-abarca cut surfaces consisting of approximately 90% yellow adipose tissue and 10% abarca fibrous tissue. No discrete lesions are noted. Biostatistics Manager sections are submitted in 1 cassette. Time removed from patient: 819 Time placed in formalin: 839 Date removed and placed in formalin: 02/29/2024 The specimen was fixed in formalin for a minimum of 6 hours and not longer than 72 hours. B) Received in formalin, labeled with the patient's name and left breast tissue, is a 627.6 g, 20.0 x 17.0 x 4.7 cm unoriented aggregate of yellow-abarca fibrofatty tissue and abarca smooth unremarkable skin. The specimen is serially sectioned revealing yellow-abarca cut surfaces consisting of approximately 90% yellow adipose tissue and 10% abarca fibrous tissue. No discrete lesions are noted. Biostatistics Manager sections are submitted in 1 cassette. Time removed from patient: 944 Time placed in formalin: 1021 Date removed and placed in formalin: 02/29/2024 The specimen was fixed in formalin for a minimum of 6 hours and not longer than 72 hours. ADW 03/01/2024 03/02/2024 4:51 PM CDT [facility] Microscopic Description The final diagnosis is based on microscopic examination of appropriate sections of all specimens. 03/02/2024 4:51 PM CDT [facility] ENTRAL [facility] Additional Information Interpreted at [facility] - [address] [facility] [address], [place] [address] 03/02/2024 4:51 PM CDT [facility] ENTRAL LABORATORY Other (Right Breast Reduction) 02/29/2024 8:20 AM CDT 03/01/2024 7:49 AM CDT Specimen (specimen) (Left Breast Reduction) 02/29/2024 9:45 AM CDT 03/01/2024 7:49 AM CDT Tj Lama MD PATHOLOGY/CYTOLOGY Huong dennis Result [facility] [address] [place] [address], * CHLAMYDIA/NEISSERIA GONORRHOEAE RNA, TMA, UROGENITAL ([facility]) (02/23/2024 3:28 PM CDT) CHLAMYDIA TRACHOMATIS RNA, TMA, UROGENITAL NOT DETECTED NOT DETECTED [facility] NEISSERIA GONORRHOEAE RNA, TMA, UROGENITAL NOT DETECTED NOT DETECTED [facility] COMMENT [employer] [place] Comment: The analytical performance characteristics of this assay, when used to test SurePath(TM) specimens have been determined by [employer]. The modifications have not been cleared or approved by the FDA. This assay has been validated pursuant to the CLIA regulations and is used for clinical purposes. For additional information, please refer to https://[employer].Planet8/faq/YIU882 (This link is being provided for information/ educational purposes only.) Other URINE SPECIMEN / Unknown 02/23/2024 3:28 PM CDT 02/23/2024 3:28 PM CDT us Terri QUINTEROS SEND OUTS Final Res ult [facility] [address] [place] [address], [facility] [address] [place] [address] * HIV 1/2 AG/AB 4TH GEN W/RFL ([employer] (02/23/2024 3:28 PM CDT) Pathologist [facility] HIV AG/AB, 4TH GEN NON-REACT RACHEL NON-REACT RACHEL [facility] Comment: HIV-1 antigen and HIV-1/HIV-2 antibodies were not detected. There is no laboratory evidence of HIV infection. PLEASE NOTE: This information has been disclosed to you from records whose confidentiality may be protected by state law. If your state requires such protection, then the state law prohibits you from making any further disclosure of the information without the specific written consent of the person to whom it pertains, or as otherwise permitted by law. A general authorization for the release of medical or other information is NOT sufficient for this purpose. For additional information please refer to http://education.[employer]Sol.[employer]/faq/BVY322 (This link is being provided for informational/ educational purposes only.) The performance of this assay has not been clinically validated in patients less than 2 years old. Blood BLOOD SPECIMEN / Unknown 02/23/2024 3:28 PM CDT 02/23/2024 3:28 PM CDT us Terri QUINTEROS SEND OUTS Final Res ult Performing Organization Address [facility] de Phone Number Ti Knight [facility] [address] [place] [address], [facility] [place] [address] [place] [address] * TREPONEMA PALLIDUM (02/23/2024 3:28 PM CDT) [facility] T. PALLIDUM AB NEGATIVE NEGATIVE [employer] [facility] Comment: No antibodies to T. pallidum (the agent causing syphilis) were detected in the specimen. This result, however, does not exclude very recent T. pallidum infection; testing of a second specimen, collected 2-4 weeks after this specimen, is recommended if the index of suspicion for recent infection is high. Blood BLOOD SPECIMEN / Unknown 02/23/2024 3:28 PM CDT 02/23/2024 3:28 PM CDT Terri QUINTEROS SEND OUTS Final Res ult Performing Organization Address [facility] Co de Phone Number Ti Knight [facility] [address] [place] [phone], [facility] [place] [address] [place] [address] * ANTI HCV (02/23/2024 3:28 PM CDT) [facility] HEPATITIS C ANTIBODY NON-REACTI VE NON-REACT RACHEL [employer] [facility] Comment: HCV antibody was non-reactive. There is no laboratory evidence of HCV infection. In most cases, no further action is required. However, if recent HCV exposure is suspected, a test for HCV RNA (test code 03354) is suggested. For additional information please refer to http://education.Planet8/faq/BBV97f1 (This link is being provided for informational/ educational purposes only.) Blood BLOOD SPECIMEN / Unknown 02/23/2024 3:28 PM CDT 02/23/2024 3:28 PM CDT Terri QUINTEROS SEND OUTS Final Res ult Ti [facility] [address] [place] [address], [place] [phone] [facility] [place] [address] [place] [address] * XR MAMMO BILAT SCREENING (02/04/2024 8:47 AM CDT) Anatomical Region Laterality Modality BREASTS, Breast Left, Breast Right Bilateral Mammography Impressions 02/07/2024 9:07 AM CDT There is no radiographic evidence for malignancy. Recommend annual mammograms. MAMMOGRAM ASSESSMENT: ACR 1 Negative PATIENTS: You will also receive a letter with your examination results in an easy to read format. If you have questions about your results, please contact your referring provider. Narrative 02/07/2024 9:07 AM CDT For Patients: As a result of the Cures Act, medical imaging exams and procedure reports are released immediately into your electronic medical record. You may view this report before your referring provider. If you have questions, please contact your health care provider. XR MAMMO BILAT SCREENING [[id number]] CLINICAL HISTORY: This is an asymptomatic 33 y.o. patient. INDICATION FOR EXAM: Mammogram Screening. TECHNIQUE: CC & MLO views were obtained. This study was evaluated with the assistance of Computer-Aided Detection. COMPARISON FILM: This is a baseline study. FINDINGS: There are scattered areas of fibroglandular density. There are no dominant masses, suspicious micro calcifications or areas of architectural distortion. Tj Lama MD MAMMO Final R esult * RAISE DRILLER THIN PREP PAP SCREEN IMAGED (09/19/2021 4:58 PM CDT) Case Report Gynecologic Cytology Report Case: [id number] Authorizing Provider: Prerna Garza PA Collected: 09/19/2021 1658 Ordering Location: [facility] Received: 09/19/2021 1713 Clinic First Screen: Columba Jorge Pathologist: Pradip Daniel Jr., MD Specimen: RAISE DRILLER ThinPrep Vial Screening, Cervical 10/08/2021 12:40 PM CDT [facility] INTERPRETATION/ RESULT NEGATIVE FOR INTRAEPITHELIAL LESION OR MALIGNANCY (NIL) (none) 10/08/2021 12:40 PM CDT [facility] R NON-NEOPLASTIC FINDING(S) Reactive cellular changes associated with inflammation/repa ir 10/08/2021 12:40 PM CDT [facility] SPECIMEN ADEQUACY Satisfactory for evaluation Endocervical component present 10/08/2021 12:40 PM CDT [facility] HPV REQUEST HPV and PAP 10/08/2021 12:40 PM CDT [facility] Date of LMP hormonally suppressed 10/08/2021 12:40 PM CDT [facility] Last Pap Date 07/20/18 10/08/2021 12:40 PM CDT [facility] Last Pap Result NIL 12:40 PM CDT [facility] Abnormal Pap or [place] Bx in last 5 years No 10/08/2021 12:40 PM CDT [facility] Menstrual Status Hormonally Suppressed 10/08/2021 12:40 PM CDT [facility] [place] Bx Done Today No 10/08/2021 12:40 PM CDT [facility] Additional Information None given 10/08/2021 12:40 PM CDT [facility] Comment: Cytology is screened at [facility], [facility] - [address], [place] [address] and [facility] - [address] [place] [address], [place] [address] and [facility] - [address] [place] [address] Interpreted at [facility] - [address] [place] [address], [place] [address] Automated Review Successful 10/08/2021 12:40 PM CDT [facility] Comment:Specimen processed s uccessfully by automated fire fighter airport device, [employer] Imaging System, [employer] ANCILLARY TESTING RAISE DRILLER HPV Ordered, Please see separate report 10/08/2021 12:[address] [facility]- ENTRAL LABORATORY Note The pap test is [...] and malignant lesions. 10/08/2021 12:[address] [facility]- ENTRAL LABORATORY Other (Cervical) Non-Blood / Unknown 09/19/2021 4:58 PM CDT 09/19/2021 5:13 PM CDT us Prerna [facility]INTEROS PATHOLOGY/CYTOLOGY Final R esult [facility]AL LAB[facility]AT[facility] [address] [place] [address], [place] from Last 3 Months or Most Recently Relevant to Health Maintenance Insurance MEDICARE PB ONLY MEDICARE PART B HB ONLY MEDICARE PART A HB ONLY MEDICA ACCESSABILITY SOLUTION MEDICARE PB ONLY MEDICA CHOICE CARE [id number] [id number] [id number] [id number] [facility] [employer] [employer] Advance Directives * Full Code (Latest Code [...] 3:11 PM 08/27/2009 7:09 PM Care Teams Insights Manager Relationship Specialty Start Date End Date Terri Orosco PA [address] [place] [address] PCP - General Physician House Supervisor 01/20/24 Jil Anderson RN [address] [place] [address] [employer] Care Coordination Hand Polisher 06/28/19 [employer] [address] [place] [address] Psychiatry Psychiatry 12/17/23 [facility] [address] [facility] [address] [place], [place] [id number] Psychologist Psychology 12/17/23
== END 2024-04-25 21:12 | disposition home or self-care (01) ==
LOC: ED 21:02
PROVIDERS: Emergency Provider Family Medicine; PCP Student in an Organized Health Care Education/Training Program
DX: T81.31XA Disruption of external operation (surgical) wound, not elsewhere classified, initial encounter (principal)
CPT/HCPCS: 99282; A9270

== ENCOUNTER 2024-06-15 12:13 | Emergency (ER) | payer MEDICARE, OTHER, SELFPAY ==
[2024-06-15 12:23] VITALS: BP 119/81; PULSE 84; RESP 16; TEMP 36.9; O2SAT 96; BMI 25.8
--- NOTE | 2024-06-15 13:23 | ED.GENADULT ---
HPI - General Adult General Chief complaint: Abdominal Pain Stated complaint: severe abdominal pain Time Seen by Provider: 06/15/24 13:16 History of Present Illness HPI narrative: Patient developed watery stools yesterday. Was at a routine f/ u appointment for a breast reduction yesterday and the doctor prescribed her Imodium. She took 1 dose yesterday and continued to go to the bathroom X2. Has not gone today. Was driving this morning to another appointment and stopped at a rest stop as her stomach started to hurt really bad and she felt hot and nauseous. She feels something isn't right and came to the ER. Has been having brown spotting per vagina X1 year but more in the last week. Had a tubal so doesn' t get a period anymore. Patient also just got the COVID vaccine about 2-3 weeks ago. Abdominal pain is in her lower abdomen all the way across. Denied painful urination and other flu symptoms. 33-year-old woman presenting to the emergency department with complaint of lower abdominal pain. Did have some watery/diarrheal stools yesterday and did take some Imodium. She has not had any bowel movements today. Was going to another appointment this morning and suddenly with low abdominal pain. Just has not improved. Otherwise has been having some vaginal brown spotting with some other flecks every couple of months over the last year. Sometime back she did have an endometrial ablation I believe for menometrorrhagia. No dysuria or frequency. She does feel like she could urinate currently. No fever. No hematochezia described. Feels bloated in the abdomen. Related Data Home Medications ?Medication ?Instructions ?Recorded ?Confirmed bupropion HCl 300 mg 24 hr tablet, 300 mg PO DAILY 12/05/21 06/18/24 extended release fexofenadine 180 mg tablet 180 mg PO QDAY 12/05/21 06/18/24 (María Allergy) omeprazole 20 mg capsule,delayed 20 mg PO DAILY 01/13/22 06/18/24 release melatonin 5 mg tablet 5 mg PO HS PRN 09/11/22 06/18/24 venlafaxine 150 mg 150 mg PO DAILY 07/26/23 06/18/24 capsule,extended release 24 hr metformin 500 mg tablet 500 mg PO BID 06/15/24 06/18/24 Previous Rx's ?Medication ?Instructions ?Recorded aripiprazole 15 mg tablet (Abilify) 15 mg PO DAILY #15 tabs 01/23/24 Allergies Allergy/AdvReac Type Severity Reaction Status Date / Time azithromycin Allergy Severe Throat Verified 06/18/24 14:24 swelling Review of Systems Status of ROS: Reports: 6 or more systems reviewed and unremarkable except as noted in History and below 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 (ICD-10) Moderate episode of recurrent major depressive disorder ?F33.1 - Major depressive disorder, recurrent, moderate (ICD-10) Mild intellectual disabilities ?F70 - Mild intellectual disabilities (ICD-10) Chronic GERD ?K21.9 - Gastro-esophageal reflux disease without esophagitis (ICD-10) Hyperlipidemia, unspecified ?E78.5 - Hyperlipidemia, unspecified (ICD-10) Autism spectrum disorder ?F84.0 - Autistic disorder (ICD-10) Constipation, unspecified ?K59.00 - Constipation, unspecified (ICD-10) Allergic rhinitis, unspecified ?J30.9 - Allergic rhinitis, unspecified (ICD-10) Depression with anxiety ?F41.8 - Other specified anxiety disorders (ICD-10) Surgical History Status post breast reduction ?Z98.890 - Other specified postprocedural states (ICD-10) Perineal abscess (02/2009) ?L02.215 - Cutaneous abscess of perineum (ICD-10) S/P tonsillectomy and adenoidectomy (2014) ?Z90.89 - Acquired absence of other organs (ICD-10) History of tubal ligation (06/2017) ?Z98.51 - Tubal ligation status (ICD-10) Family History Father High cholesterol Maternal Grandmother Diabetes Social History Narrative: Single 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 NAD. Sounds somewhat congested in the nasopharynx. Breathing easily. Heart in regular rate and rhythm. Abdomen is soft without peritoneal signs. She is tender in the left adnexal area primarily but generally somewhat in the left lower quadrant. Extremities are well perfused without edema. Const: Vital Signs, click to edit/add: Vital Signs - 24 hr 06/15/24 12:23 Temperature 98.4 F Pulse Rate [Pulse Oximeter] 84 Respiratory Rate 16 Blood Pressure [Ri ght Upper Arm] 119/81 Pulse Oximetry 96 Oxygen Delivery Me thod Room Air Documenting provider has reviewed patient's vital signs: yes Course Vital Signs Vital signs: Initial Vital Signs Temperature 98.4 F 06/15/24 12:23 Temperature Source Temporal Artery Scan 06/15/24 12:23 Pulse Rate 84 06/15/24 12:23 Pulse Rhythm Regular 06/15/24 12:23 Pulse Strength 3+ Normal 06/15/24 12:23 Respiratory Rate 16 06/15/24 12:23 Blood Pressure 119/81 06/15/24 12:23 Blood Pressure Mean 93 06/15/24 12:23 Blood Pressure Position Sitting 06/15/24 12:23 Pulse Oximetry 96 06/15/24 12:23 Oxygen Delivery Method Room Air 06/15/24 12:23 Vital Signs Temperature 98.4 F 06/15/24 12:23 Pulse Rate 84 06/15/24 12:23 Respiratory Rate 16 06/15/24 12:23 Blood Pressure 119/81 06/15/24 12:23 Pulse Oximetry 96 06/15/24 12:23 Oxygen Delivery Method Room Air 06/15/24 12:23 Temperature 98.4 F 06/15/24 12:23 Pulse Rate 84 06/15/24 12:23 Respiratory Rate 16 06/15/24 12:23 Blood Pressure 119/81 06/15/24 12:23 Pulse Oximetry 96 06/15/24 12:23 Oxygen Delivery Method Room Air 06/15/24 12:23 Medical Decision Making MDM Narrative Medical decision making narrative: Differential includes diverticulitis, intestinal colic with underlying enteritis, ovarian torsion or possibly ovarian cyst with rupture. Given this history of breakthrough spotting and location of pain I think it would be prudent to do a pelvic ultrasound. Will check urinalysis as well. Otherwise I think this is more intestinal colic. Discussed findings with chicken picker. Radiology over-read below INDICATION: Left adnexal pain. TECHNIQUE: Transabdominal and transvaginal ultrasound examination of the pelvis was performed. Grayscale and color Doppler images were obtained. COMPARISON: None. FINDINGS: Uterus: Measures 7.5 x 4.2 x 4.7 cm. Normal in echotexture. Left uterine body fibroid measuring 2.3 cm. There is a 1.8 indeterminate soft tissue lesion with cystic changes arising from the uterine fundal submucosa with mild associated vascularity. Endometrium: 12 mm. No significant endometrial free fluid. Right Ovary: Measures 5.2 x 2.3 x 3.2 cm. No suspicious masses. Normal arterial and venous flow on color Doppler imaging. Left ovary: Not visualized. Cul-de-sac: No free fluid. IMPRESSION: 1. Fibroid uterus. 2. There is an indeterminate 1.8 cm submucosal soft tissue lesion with cystic changes arising from the uterine fundus, possibly a submucosal fibroid but indeterminate on this examination. Correlate with serum beta HCG. Recommend follow-up with gynecology for possible histologic tissue analysis. Contrast-enhanced pelvic MRI may be considered for improved characterization. Urinalysis and HCG are negative. Discussed findings with Ms. Campuzano. She already has appointment scheduled for follow-up to include ultrasound and biopsy given the spotting she had been experiencing. Reviewing the difficulty with this ultrasound today I do think again the primary source of her pain was intestinal in nature and likely related to bowel gas. With stable vitals and improvement in pain I do not think further evaluation is necessary today. See patient discharge plan for further discussion. Please follow-up with that ultrasound and biopsy on the 10th as scheduled. Consider selenium plant operator diet over the next 24 hours. Be seen otherwise for marked increase in persistent pain, fever. Lab Data Lab results reviewed: Yes I reviewed the patient's lab results Labs: Lab Results 06/15/24 Range/Units Unknown Urine Color Yellow (Yellow) Urine Appearance Clear (Clear) Urine pH 6.0 (5.0-8.5) Ur Specific [place] 1.025 (1.000-1.030) Urine Protein Negative (Negative) Urine Glucose (UA) Negative (Negative) Urine Ketones Negative (Negative) Urine Blood Negative (Negative) Urine Nitrite Negative (Negative) Urine Bilirubin Negative (Negative) Urine Urobilinogen 0.2 (0.2-1.0) Ur Leukocyte Esterase Negative (Negative) Urine RBC 0-2 (0-2) Urine WBC 0-2 (0-5) Ur Squamous Epith Cells Few (None-Few) Urine Bacteria Few A (None) Urine Mucus Few A (None) Urine HCG, Qual Negative (Negative) Discharge Plan Discharge Clinical Impression: Left lower quadrant abdominal pain, Vaginal spotting, Fibroid, uterine, Enteritis Patient Disposition: Home, Self-Care Condition: Improved Additional Instructions: Please follow-up with that ultrasound and biopsy on the 10th as scheduled. Consider selenium plant operator diet over the next 24 hours. Be seen otherwise for marked increase in persistent pain, fever. Prescriptions: No Action bupropion HCl 300 mg tablet extended release 24 hr 300 mg PO DAILY fexofenadine [María Allergy] 180 mg tablet 180 mg PO QDAY omeprazole 20 mg capsule,delayed release(DR/EC) 20 mg PO DAILY melatonin 5 mg tablet 5 mg PO HS PRN aripiprazole [Abilify] 15 mg tablet 15 mg PO DAILY Qty: 15 0RF venlafaxine 150 mg capsule,extended release 24hr 150 mg PO DAILY metformin 500 mg tablet 500 mg PO BID Follow Up/Referrals: Terri Orosco PA-C [Primary Care Provider] - Stand Alone Forms: [employer] Info Instructions
[2024-06-15 14:05] LABS: Appearance Urine Clear (Clear); Bilirubin Urine Negative (Negative); Blood Urine Negative (Negative); Color Urine Yellow (Yellow); Glucose Urine Negative (Negative); Ketones Urine Negative (Negative); Leukocyte Esterase Urine Negative (Negative); Nitrite Urine Negative (Negative); Protein Urine Negative (Negative); Specific Gravity Urine 1.025 (1.000-1.030); Urobilinogen Urine 0.2 (0.2-1.0)
[2024-06-15 14:07] LABS: Ur HCG Qualitative* Negative (Negative)
[2024-06-15 14:16] LABS: Bacteria Urine Few; Mucus Urine Few; RBC Urine 0-2 (0-2); Squamous Epithelial Cell Urine Few (None-Few); WBC Urine 0-2 (0-5)
== END 2024-06-15 15:53 | disposition home or self-care (01) ==
PROVIDERS: Emergency Provider Family Medicine; PCP Student in an Organized Health Care Education/Training Program
DX: D25.9 Leiomyoma of uterus, unspecified (principal); K52.9 Noninfective gastroenteritis and colitis, unspecified; R10.2 Pelvic and perineal pain
CPT/HCPCS: 76830; 81001; 81025; 87086; 93976; 99284

== ENCOUNTER 2024-08-09 18:34 | Emergency (ER) | payer MEDICARE, OTHER, SELFPAY ==
--- OUTSIDE RECORDS SUMMARY | 2024-08-09 18:37 | XMS_ITS | Clinical Summary ---
Author Organization [employer] [facility] Address [address] [place] [address] Care Team Providers Care Youth Support Worker Name Role Phone Jil Anderson RN Unavailable [phone] Terri Orosco Primary Care Provider [phone] Allergies Active Allergy Reactions Criticality Noted Date [...] pt Medications buPROPion (WELLBUTRIN XL) 300 mg Extended-Release tablet 300 mg. 07/16 09/04 18 Active fexofenadine (TEMO) 180 mg tablet every day 12/06/19 22 Active venlafaxine (EFFEXOR XR) 150 mg Extended-Release capsule Take 150 mg by mouth. 09/26/19 23 Active melatonin 10 mg chew Chew 10 mg by mouth at bedtime. Active ARIPiprazole (ABILIFY) 20 mg tablet Take 20 mg by mouth once daily. 09/21/19 24 Active multivit with iron,minerals (MULTIVITAMIN AND MINERALS ORAL) Take by mouth. Active metFORMIN (GLUCOPHAGE) 500 mg tablet Take 500 mg by mouth two times daily with meals. 12/15/19 24 Active omeprazole (PRILOSEC) 20 mg Delayed-Release capsuleIndications:Shear Operator Helper teresa GERD Take 1 Capsule (20 mg) by mouth once daily before a meal. 90 Capsule 3 01/20/20 24 Active oxybutynin XL (DITROPAN XL) 10 mg CR tabletIndications:Mixed stress and urge incontinence Take 1 Tablet (10 mg) by mouth once daily. 90 Tablet 3 06/09/19 25 Active fluticasone (50 mcg per actuation) nasal solution (FLONASE)Indications:Pe rennial allergic rhinitis Inhale 2 Sprays in both nostrils once daily. 48 g 3 07/26/19 25 Active azelastine 137 mcg/actuation (ASTELIN) nasal sprayIndications:Allerg ic rhinoconjunctivitis Inhale 2 Sprays into affected nostril(s) two times daily. 90 mL 3 07/26/19 25 Active Active Problems Problem Noted Date Diagnosed Date Mixed stress and urge incontinence 06/10/2024 Macromastia 02/29/2024 Pap smear for cervical cancer [...] Encounters Date Type Department Care Team Description 07/25/2024 3:45 PM CDT Telemedicine [facility] [address] [place] [address] Chung Guerra MBBS 07/25/2024 Travel 07/01/2024 1:30 PM MORTGAGE OPERATIONS MANAGER [facility] [address] [facility] [address] [place] [address] Kiara Ruelas PA Consult (Vaginal spotting, Uterine Leiomyoma /Hx of Endometrial Ablation /Uls done 06/27/24); Referral (Chrissie Young MD) 07/01/2024 Travel 06/27/2024 7:30 AM MORTGAGE OPERATIONS MANAGER Ancillary Procedure [facility] [address] [place] [address] 06/27/2024 Travel 06/16/2024 Patient Outreach [address] [address] Jil Anderson RN [place] Care Coordination- [facility] ([facility]- ED) 06/15/2024 Orders Only [facility] Scanner 1 scan: (1-Ord) [facility], PELVIC TRANSVAGINAL, 06/15/2024 06/14/2024 11:00 AM MORTGAGE OPERATIONS MANAGER Office Visit [facility] [address] [facility] [address] [place] [address] Tj Lama MD Follow Up (90 day follow up- DOS: 02/29/2024- Bilateral Breast Reduction) 06/13/2024 2:45 PM MORTGAGE OPERATIONS MANAGER Office Visit [facility] [address] [place] [address] Chrissie Young MD Vaginal Itching (Burning and itching) 06/13/2024 Travel 06/09/2024 9:50 AM MORTGAGE OPERATIONS MANAGER Office Visit [facility] [address] [place] [address] Randee Silverio PA Urinary Problem (Incontinence issues-started 7 years ago after having child but seems to be getting worse) 06/09/2024 Travel 05/27/2024 11:55 AM MORTGAGE OPERATIONS MANAGER Office Visit [facility] [address] [place] [address] Brittani Fontana PA Abscess 05/27/2024 Travel 05/24/2024 3:00 PM MORTGAGE OPERATIONS MANAGER Office Visit [facility] [address] [place] [address] Brittani Fontana PA Derm Problem 05/24/2024 Travel from Last 3 Months Immunizations Immunization Administration Dates Next Due COVID-19 vaccine (Pfizer-Bio [...] or isolated from those around you? 0 05/24/2024 Financial Resource Strain Answer Date R ecorded Difficulty of Paying Living Expenses 3 05/22/2023 Difficulty of Paying Living Expenses Not on file 05/22/2023 Food Insecurity Answer Date Recorded Do you worry your food will run out before you are able to buy more? 1 05/24/2024 Transportation Needs Answer Date Record ed Does lack of transportation keep you from medica l appointments? 1 05/24/2024 Does lack of transportation keep you from work, meetings or getting things that you need? 1 05/24/2024 Housing Stability Answer Date Recorded What is your housing situation today? 1 05/24/2024 Utilities Answer Date Recorded Do you have trouble paying f or utilities (for example, heat, electricity, water, phone)? 1 05/24/2024 Comments No Sex and Gender Information Value Date Recorded Sex Assigned at Not on file Legal Sex Female 5:46 AM MORTGAGE OPERATIONS MANAGER Gender Identity Not on file Sexual Orientation Not on file Occupation Industry Job Start Date Job End Date Unemployed Not on file Not on file Not on file Obstetrics History Para Term AB IAB SAB Ectopic Multiple Livin g Live Births 1 1 0 1 0 0 0 0 0 1 1 Date Outcome GA Total Labor Labor/2nd/3rd Weight Sex Type Anes PTL Gloria A1 A5 Name Clin 018 36w 0d F Vag KESHIA N,BG BRANSON Delivery Location:[facility] Last Filed Vital Signs Vital Sign Reading Time Taken Comments Blood Pressure 118/68 07/01/2024 1:17 PM MORTGAGE OPERATIONS MANAGER Pulse 78 07/01/2024 1:17 PM MORTGAGE OPERATIONS MANAGER Temperature 36.7 C (98.1 F) 06/14/2024 11:01 AM MORTGAGE OPERATIONS MANAGER Respiratory Rate 16 06/14/2024 11:01 AM MORTGAGE OPERATIONS MANAGER Oxygen Saturation 99% 06/13/2024 2:45 PM MORTGAGE OPERATIONS MANAGER Inhaled Oxygen Concentration - - Weight 71.7 kg (158 lb) 07/01/2024 1:17 PM MORTGAGE OPERATIONS MANAGER Height 170.2 cm (5' 7) 06/14/2024 11:01 AM MORTGAGE OPERATIONS MANAGER Body Mass Index 24.75 06/14/2024 11:01 AM MORTGAGE OPERATIONS MANAGER Plan of Treatment Upcoming Encounters Date Type Department Care Team (Late st Contact Info) Description 08/15/2024 7:00 AM CDT Office Visit [facility] [address] [place] [address] Terri Orosco PA [address] [place] [address] 02/28/2025 1:00 PM CDT [facility] [address] [facility] [address] [place], [place] [address] Tj Lama MD [address] [facility] [address] [place] [address] Health Maintenance Due Date Last Done Comments Depression screening for age 12+ 01/19/2025 01/20/2024, 09/30/2022, 10/17/2021, Additional history exists BMI (ht and wt on same day) for age 18+ 06/14/2025 06/14/2024, 04/26/2024, 02/04/2024, Additional history exists Pap test for age 21-65 09/19/2026 , 09/19/2021, 07/20/2018, Additional history exists Tetanus booster 05/15/2027 05/15/2017, 06/11/2011 Tdap Completed 05/15/2017, 06/11/2011 Influenza Vaccine Completed 12/24/2023, , 03/10/2022, Additional history exists HIV for age 15-65 Completed 02/23/2024, , 11/24/2016, Additional history exists Hepatitis C screening for age 18-79 Completed 02/23/2024, 04/16/2017 COVID-19 vaccine series Completed 06/01/19, 03/10/2022, 2020, Additional history exists Pneumococcal series for age 6-49 Aged Out No longer eligible based on patient's age to complete this topic Goals Goal Patient Goal Type Associated Problems Recent Progress Patient-Stated? Author Scuddy CC: [place] Choices General Yes Tell, Jil Boyer RN Note: Goal Title: [facility] CC - [place] Goals Goals Creation Date: 12/30/23 Goals End Date: 12/28/24 Tonya's [place] goal statements (SMART): I will establish primary care provider by completing annual physical I will continue to manage mental health by taking medications and seeing my MH providers Actions my Funeral Home Director (CC) will take to support me in achieving these goals: CC will monitor goal progress at biannual Support Plan review and record updates in [place]ICES. Jil Anderson RN..........12/30/2023 4:09 PM Scuddy CC: Health Maintenance General Jil Ledesma RN Note: Health Maintenance Tracking Grid Tonya [...] Procedure Name Priority Date/Time Associated Diagnosis Comments TSH WITH REFLEX Routine 07/01/2024 2:05 PM MORTGAGE OPERATIONS MANAGER Abnormal uterine bleeding (AUB) Irregular menses PROLACTIN Routine 07/01/2024 2:05 PM MORTGAGE OPERATIONS MANAGER Abnormal uterine bleeding (AUB) FSH Routine 07/01/2024 2:05 PM MORTGAGE OPERATIONS MANAGER Abnormal uterine bleeding (AUB) US PELVIS COMPLETE TV Routine 06/27/2024 7:54 AM MORTGAGE OPERATIONS MANAGER S/P endometrial ablation Vaginal spotting SCAN-ULTRASOUND REPORT 06/15/2024 12:00 AM MORTGAGE OPERATIONS MANAGER TRICHOMONAS, AMBER, AND BACTERIAL VAGINOSIS BY KRISHAN Routine 06/13/2024 4:22 PM MORTGAGE OPERATIONS MANAGER Yeast vaginitis AEROBIC BACTERIAL CULTURE, STAIN Routine 05/27/2024 11:59 AM MORTGAGE OPERATIONS MANAGER Abscess, scalp Cellulitis of head or scalp COVID/FLU/RSV PANEL Routine 05/27/2024 1 1:59 AM MORTGAGE OPERATIONS MANAGER Influenza-like illness HIV 1/2 ANTIGEN/ANTIBODY FOURTH GENERATION W/RFL (QUEST) Routine 02/23/2024 3:28 PM CDT Screen for STD (sexually transmitted disease) ANTI HCV Routine 02/23/2024 3:28 PM CDT Screen for STD (sexually transmitted disease) TOBACCO GRADER THIN PREP PAP SCREEN IMAGED Routine 09/19/2021 4:58 PM CDT Screening for malignant neoplasm of cervix from Last 3 Months or Most Recently Relevant to Health Maintenance Results * TSH WITH REFLEX (07/01/2024 2:05 PM MORTGAGE OPERATIONS MANAGER) TSH W/REFLEX TO FT4 1.63 mIU/L [facility] Comment: Reference Range > or = 20 Years 0.40-4.50 Ranges First trimester 0.26-2.66 Second trimester 0.55-2.73 Third trimester 0.43-2.91 Blood BLOOD SPECIMEN / Unknown 07/01/2024 2:05 PM MORTGAGE OPERATIONS MANAGER 07/01/2024 2:05 PM MORTGAGE OPERATIONS MANAGER Kiara QUINTEROS CHEMISTRY Final R esult [facility] [address] [place] [address], [facility] [address] [place] [address] * PROLACTIN (07/01/2024 2:05 PM MORTGAGE OPERATIONS MANAGER) PROLACTIN 4.1 ng/mL [facility] Comment: Reference Range Females Non- 3.0-30.0 10.0-209.0 Postmenopausal 2.0-20.0 Blood BLOOD SPECIMEN / Unknown 07/01/2024 2:05 PM MORTGAGE OPERATIONS MANAGER 07/01/2024 2:05 PM MORTGAGE OPERATIONS MANAGER Kiara QUINTEROS SEND OUTS Final R esult Performing Organization Address [facility]/ZIP Co de Phone Number [employer] [facility] [address] [place] [address], [place] [phone] [facility] [address] [place] [address] * FSH (07/01/2024 2:05 PM MORTGAGE OPERATIONS MANAGER) FSH 2.5 mIU/mL [facility] Comment: Reference Range Follicular Phase 2.5-10.2 Mid-cycle Peak 3.1-17.7 Luteal Phase 1.5- 9.1 Postmenopausal 23.0-116.3 Blood BLOOD SPECIMEN / Unknown 07/01/2024 2:05 PM MORTGAGE OPERATIONS MANAGER 07/01/2024 2:05 PM MORTGAGE OPERATIONS MANAGER Kiara QUINTEROS CHEMISTRY Final R esult Performing Organization Address [facility] Co de Phone Number [employer] [facility] [address] [place] [address], [place] [phone] [facility] [address] [place] [address] * US PELVIS COMPLETE TV (06/27/2024 7:54 AM MORTGAGE OPERATIONS MANAGER) Anatomical Region Laterality Modality Pelvis, OVARIES, UTERUS Ultrasou nd 06/27/2024 9:41 AM MORTGAGE OPERATIONS MANAGER Impressions 06/27/2024 9:41 AM MORTGAGE OPERATIONS MANAGER Endometrial thickness 6.8 millimeters. No endometrial fluid. Two fibroids are present measuring 2.7 cm and 1.2 cm. These both are adjacent to the endometrium without mass effect. Dictated by Joshua Mejia MD @ 06/27/2024 9:41:43 AM (Electronically Signed) Narrative 06/27/2024 9:41 AM MORTGAGE OPERATIONS MANAGER For Patients: As a result of the Cures Act, medical imaging exams and procedure reports are released immediately into your electronic medical record. You may view this report before your referring provider. If you have questions, please contact your health care provider. CLINICAL HISTORY: Vaginal spotting S/P endometrial ablation COMPARISON 11/15/2013 TECHNIQUE: 2D holder scale and color Doppler images were acquired of the pelvis using a transvaginal approach. FINDINGS: Endometrium measures 6.8 millimeters. No endometrial fluid. Left mid intramural fibroid is present which measures 2.7 x 2.4 x 2.4 cm. Right fundal fibroid also present measures 1.2 x 1.1 x 0.6 cm. Uterus measures 7.0 x 5.1 x 4.0 cm. The left ovary is not visualized and the right ovary measures 2.8 x 2.5 x 1.8 cm. The right ovary demonstrates normal arterial and venous blood flow on color Doppler analysis. There are no suspicious fluid collections within the cul-de-sac. Simple cysts right ovary measures 2.0 cm. Procedure Note Joshua Mejia MD - 06/27/2024 For Patients: As a result of the Cures Act, medical imagingexams and procedure reports are released immediately into your electronicmedical record. You may view this report before your referring provider.If you have questions, please contact your health care provider. CLINICAL HISTORY: Vaginal spotting S/P endometrial ablation COMPARISON 11/15/2013 TECHNIQUE: 2D holder scale and color Doppler images were acquired of the pelvis using atransvaginal approach. FINDINGS: Endometrium measures 6.8 millimeters. No endometrial fluid. Left midintramural fibroid is present which measures 2.7 x 2.4 x 2.4 cm. Rightfundal fibroid also present measures 1.2 x 1.1 x 0.6 cm. Uterus measures7.0 x 5.1 x 4.0 cm. The left ovary is not visualized and the right ovary measures 2.8 x 2.5 x1.8 cm. The right ovary demonstrates normal arterial and venous blood flowon color Doppler analysis. There are no suspicious fluid collectionswithin the cul-de-sac. Simple cysts right ovary measures 2.0 cm. IMPRESSION: Endometrial thickness 6.8 millimeters. No endometrial fluid. Two fibroidsare present measuring 2.7 cm and 1.2 cm. These both are adjacent to theendometrium without mass effect. Dictated by Joshua Mejia MD @ 06/27/2024 9:41:43 AM (Electronically Signed) Chrissie Young MD US Final Resul t * SCAN-ULTRASOUND REPORT (06/15/2024 12:00 AM MORTGAGE OPERATIONS MANAGER) Anatomical Region Laterality Modality Other us Scanner OTHER Final Result * (ABNORMAL) TRICHOMONAS, AMBER, AND BACTERIAL VAGINOSIS BY KRISHAN (06/13/2024 4:22 PM MORTGAGE OPERATIONS MANAGER) AMBER SPECIES Positive(A) Negative 06/14/19 2:12 PM MORTGAGE OPERATIONS MANAGER [facility] AMBER GLABRATA Negative Negative 06/14/2024 2:12 PM MORTGAGE OPERATIONS MANAGER [facility] TRICHOMONAS VVA Negative Negative 5 2:12 PM MORTGAGE OPERATIONS MANAGER [facility] BACTERIAL VAGINOSIS Negative Negative 06/14/2024 2:12 PM MORTGAGE OPERATIONS MANAGER [facility] Other VAGINAL SWAB / Unknown Non-Blood / Unknown 06/13/2024 4:22 PM MORTGAGE OPERATIONS MANAGER 06/13/2024 4:22 PM MORTGAGE OPERATIONS MANAGER Chrissie Young MD MICROBIOLOGY Final Resul t [facility] [address] [place] [address], [place] * COVID/FLU/RSV PANEL (05/27/2024 11:59 AM MORTGAGE OPERATIONS MANAGER) COVID 19 [facility] Negative Negative 05/27/2024 11:26 PM MORTGAGE OPERATIONS MANAGER [facility] Comment:All PCR tests are rodriguez bject to false negative result due to variability in viral load and collection technique. A negative result does not rule out a SARS-CoV-2 infection. Clinical correlation required. INFLUENZA A PCR Negative 11:26 PM MORTGAGE OPERATIONS MANAGER [facility] INFLUENZA B PCR Negative 11:26 PM MORTGAGE OPERATIONS MANAGER [facility] Respiratory Syncytial Virus Negative 05/27/2024 11:26 PM MORTGAGE OPERATIONS MANAGER [facility] Swab NASOPHARYNGEAL SWAB / Unknown Non-Blood / Unknown 05/27/2024 11:59 AM MORTGAGE OPERATIONS MANAGER 05/27/2024 11:59 AM MORTGAGE OPERATIONS MANAGER Brittani QUINTEROS MICROBIOLOGY Final Result Performing Organization Address City/[facility]/ZIP Co de Phone Number [facility] [address] [place] [address], * (ABNORMAL) AEROBIC BACTERIAL CULTURE, STAIN (05/27/2024 11:59 AM MORTGAGE OPERATIONS MANAGER) CULTURE RESULT(A) 05/31/2024 11:12 AM MORTGAGE OPERATIONS MANAGER [facility] CULTURE 1+ Staphylococcus coagulase negative 05/31/2024 11:12 AM MORTGAGE OPERATIONS MANAGER [facility] GRAM STAIN 1+ PMNs 05/31/2024 11:12 AM MORTGAGE OPERATIONS MANAGER [facility] GRAM STAIN 3+ RBCs 05/31/2024 11:12 AM MORTGAGE OPERATIONS MANAGER [facility] GRAM STAIN No Epithelial cells 05/31/2024 11:12 AM MORTGAGE OPERATIONS MANAGER [facility] GRAM STAIN No organisms seen 025 11:12 AM MORTGAGE OPERATIONS MANAGER [facility] Other (Other) Non-Blood / Unknown 05/27/2024 11:59 AM MORTGAGE OPERATIONS MANAGER 05/27/2024 11:59 AM MORTGAGE OPERATIONS MANAGER Narrative Organism Antibiotic Method Susceptibility Staphylococcus coagulase negative OXACILLIN <=0.25: S Comment:Oxacillin rodriguez sceptible should not be interpreted as penicillin or amoxicillin susceptible. Staphylococcus coagulase negative CLINDAMYCIN >=4: R Staphylococcus coagulase negative DOXYCYCLINE <=0.5: S Staphylococcus coagulase negative CEFAZOLIN S Staphylococcus coagulase negative TRIMETHOPRIM/SULF <=0.5/9.5: S Brittani QUINTEROS MICROBIOLOGY Final Result Performing Organization Address [facility]/State/ZIP Co de Phone Number [facility] [address] [place] [address], * HIV 1/2 AG/AB 4TH GEN W/RFL (QUEST) (02/23/2024 3:28 PM CDT) HIV AG/AB, 4TH GEN NON-REACT RACHEL NON-REACT RACHEL [facility] [place] Comment: HIV-1 antigen and HIV-1/HIV-2 antibodies were [...] purpose. For additional information please refer to http://[employer]/faq/HNO534 (This link is being provided for informational/ educational purposes only.) The performance of this assay has not been clinically validated in patients less than 2 years old. Blood BLOOD SPECIMEN / Unknown 02/23/2024 3:28 PM CDT 02/23/2024 3:28 PM CDT Terri QUINTEROS SEND OUTS Final Res ult [employer] [address] [place] [address], [facility] [address] [place] [address] * ANTI HCV (02/23/2024 3:28 PM CDT) HEPATITIS C ANTIBODY NON-REACTI VE NON-REACT RACHEL [facility] Comment: HCV antibody was non-reactive. There is no laboratory evidence of HCV infection. In most cases, no further action is required. However, if recent HCV exposure is suspected, a test for HCV RNA (test code 03029) is suggested. For additional information please refer to http://education.[employer]/faq/YKT98u5 (This link is being provided for informational/ educational purposes only.) Blood BLOOD SPECIMEN / Unknown 02/23/2024 3:28 PM CDT 02/23/2024 3:28 PM CDT Terri QUINTEROS SEND OUTS Final Res ult [employer] [address] [place] [address], [facility] [address] [place] [address] * TOBACCO GRADER THIN PREP PAP SCREEN IMAGED (09/19/2021 4:58 PM CDT) Case Report Gynecologic Cytology Report Case: [id number] Authorizing Provider: Prerna Garza PA Collected: 09/19/2021 1658 Ordering Location: [facility] Received: 09/19/2021 1713 Clinic First Screen: Columba Jorge Pathologist: Pradip Daniel Jr., MD Specimen: TOBACCO GRADER ThinPrep Vial Screening, Cervical 10/08/2021 12:40 PM CDT [facility] INTERPRETATION/ RESULT NEGATIVE FOR INTRAEPITHELIAL LESION OR MALIGNANCY (NIL) (none) 10/08/2021 12:40 PM CDT [facility] [employer] ENTRAL [facility]AT[facility] R NON-NEOPLASTIC FINDING(S) Reactive cellular changes associated with inflammation/repa ir 10/08/2021 12:40 PM CDT [facility] SPECIMEN ADEQUACY Satisfactory for evaluation Endocervical component present 10/08/2021 12:40 PM CDT [facility] HPV REQUEST HPV and PAP 10/08/2021 12:40 PM CDT [facility] Date of LMP hormonally suppressed 10/08/2021 12:40 PM CDT [facility] Last Pap Date 07/20/18 10/08/2021 12:40 PM CDT [facility] Last Pap Result NIL 12:40 PM CDT [facility] Abnormal Pap or Saco Bx in last 5 years No 10/08/2021 12:40 PM CDT [facility] Menstrual Status Hormonally Suppressed 10/08/2021 12:[address] [facility] Saco Bx Done Today No 10/08/2021 12:[address] [facility] Additional Information None given 10/08/2021 12:40 PM CDT [facility] Comment: Cytology is screened at [facility] Central Laboratory - [address], [place] [address] and [facility] - [address], [place] [address] and [facility] - [address] [place] [address] Interpreted at [facility] - [address], [place] [address] Automated Review Successful 10/08/2021 12:40 PM CDT [facility] Comment:Specimen processed s uccessfully by automated airport guide device, ThinPrep Imaging System, [employer] ANCILLARY TESTING TOBACCO GRADER HPV Ordered, Please see separate report 10/08/2021 12:[address] [facility] Note The pap test is a [...] and malignant lesions. 10/08/2021 12:[address] [facility] Other (Cervical) Non-Blood / Unknown 09/19/2021 4:58 PM CDT 09/19/2021 5:13 PM CDT us Prerna QUINTEROS PATHOLOGY/CYTOLOGY Final R esult [facility] [address] [place] [address], [place] from Last 3 Months or Most Recently Relevant to Health Maintenance Insurance MEDICARE PB ONLY MEDICARE PART B HB ONLY MEDICARE PART A HB ONLY MEDICA ACCESSABILITY [id number] [place] [address] MEDICARE PB ONLY MEDICA CHOICE CARE [address] [place] [address] HC MEDICARE PPS [address] [place] [address] [facility] [employer] Member Subscriber Plan / Payer (Ef fective 2014-Present) Name:Tonya Campuzano Member ID:[id number] Relation to Subscriber:Self Name:Tonya Campuzano Subscriber ID:[id number] Payer ID:Not on file Group ID:Not on file Type:Not on file Address: [employer] [address] [address] [place] [address] Advance Directives * Full Code (Latest Code [...] 3:11 PM 08/27/2009 7:09 PM Care Teams Youth Support Worker Relationship Specialty Start Date End Date Terri Orosco PA [address] [place] [address] PCP - General Physician Cnc Mill Set Up Operator 01/20/24 Jil Anderson, RN [address] [place] [address] [employer] Care Coordination Funeral Home Director 06/28/19 [employer] [address] [place] [address] Psychiatry Psychiatry 12/17/23 [facility] [address] [facility] [address] [place] [address] Psychologist Psychology 12/17/23
[2024-08-09 18:41] VITALS: BP 119/77; PULSE 86; RESP 18; TEMP 36.4; O2SAT 100; BMI 24.6
--- OUTSIDE RECORDS SUMMARY | 2024-08-09 19:11 | XMS_ITS | Clinical Summary ---
Author Organization [employer] Address [address] [place] [address] Care Team Providers Care Automotive Fuel Injection Servicer Name Role Phone Jil Anderson RN Unavailable [phone] Terri Orosco Primary Care Provider [phone] Allergies Active Allergy Reactions Criticality Noted Date [...] 24 Active omeprazole (PRILOSEC) 20 mg Delayed-Release capsuleIndications:Set Up Person teresa GERD Take 1 Capsule (20 mg) [...] Team Description 07/25/2024 3:45 PM CDT Telemedicine [facility] [address] [place] [address] Chung Guerra MBBS 07/25/2024 Travel 07/01/2024 1:30 PM DIRECTOR OF ACADEMIC SUPPORT Office Visit [facility] [address] [facility] [address] [place] [address] Kiara Ruelas PA Consult (Vaginal spotting, Uterine Leiomyoma /Hx of Endometrial Ablation /Uls done 06/27/24); Referral (Chrissie Young MD) 07/01/2024 Travel 06/27/2024 7:30 AM DIRECTOR OF ACADEMIC SUPPORT Ancillary Procedure [facility] [address] [place] [address] 06/27/2024 Travel 06/16/2024 Patient Outreach [address] [address] Jil Anderson RN [place] Care Coordination- [facility] ([facility]- ED) 06/15/2024 Orders Only [facility] Scanner 1 scan: (1-Ord) [facility], PELVIC TRANSVAGINAL, 06/15/2024 06/14/2024 11:00 AM DIRECTOR OF ACADEMIC SUPPORT Office Visit [facility] [address] [facility] [address] [place] [address] Tj Lama MD Follow Up (90 day follow up- DOS: 02/29/2024- Bilateral Breast Reduction) 06/13/2024 2:45 PM DIRECTOR OF ACADEMIC SUPPORT Office Visit [facility] [address] [place] [address] Chrissie Young MD Vaginal Itching (Burning and itching) 06/13/2024 Travel 06/09/2024 9:50 AM DIRECTOR OF ACADEMIC SUPPORT Office Visit [facility] [address] [place] [address] Randee Silverio PA Urinary Problem (Incontinence issues-started 7 years ago after having child but seems to be getting worse) 06/09/2024 Travel 05/27/2024 11:55 AM DIRECTOR OF ACADEMIC SUPPORT Office Visit [facility] [address] [place] [address] Brittain Fontana PA Abscess 05/27/2024 Travel 05/24/2024 3:00 PM DIRECTOR OF ACADEMIC SUPPORT Office Visit [facility] [address] [place] [address] Brittani Fontana PA Derm Problem 05/24/2024 Travel [...] on file Legal Sex Female 5:46 AM DIRECTOR OF ACADEMIC SUPPORT Gender Identity Not on file Sexual Orientation [...] 018 36w 0d F Vag KESHIA N,BG [place] Delivery Location:[facility] Last Filed Vital Signs Vital Sign Reading Time Taken Comments Blood Pressure 118/68 07/01/2024 1:17 PM DIRECTOR OF ACADEMIC SUPPORT Pulse 78 07/01/2024 1:17 PM DIRECTOR OF ACADEMIC SUPPORT Temperature 36.7 C (98.1 F) 06/14/2024 11:01 AM DIRECTOR OF ACADEMIC SUPPORT Respiratory Rate 16 06/14/2024 11:01 AM DIRECTOR OF ACADEMIC SUPPORT Oxygen Saturation 99% 06/13/2024 2:45 PM DIRECTOR OF ACADEMIC SUPPORT Inhaled Oxygen Concentration - - Weight 71.7 kg (158 lb) 07/01/2024 1:17 PM DIRECTOR OF ACADEMIC SUPPORT Height 170.2 cm (5' 7) 06/14/2024 11:01 AM DIRECTOR OF ACADEMIC SUPPORT Body Mass Index 24.75 06/14/2024 11:01 AM DIRECTOR OF ACADEMIC SUPPORT Plan of Treatment Upcoming Encounters Date Type Department Care Team (Late st Contact Info) Description 08/15/2024 7:00 AM CDT Office Visit [facility] [address] [place] [address] Terri Orosco PA [address] [place] [address] 02/28/2025 1:00 PM CDT Office Visit [facility] [address] [facility] [address] [place], [place] [id number] Tj Lama MD [address] [facility] [address] [place] [address] Health Maintenance Due Date Last Done [...] Type Associated Problems Recent Progress Patient-Stated? Author [facility] CC: [place] Choices General Yes Tell, Jil Boyer RN Note: Goal Title: [employer] [facility] - MnCHOICES Goals Goals Creation Date: 12/30/23 Goals End Date: 12/28/24 Tonya's MnCHOICES goal statements (SMART): I will establish primary care provider by completing annual physical I will continue to manage mental health by taking medications and seeing my MH providers Actions my Chrome Worker (CC) will take to support me in achieving these goals: CC will monitor goal progress at biannual Support Plan review and record updates in MnCHOICES. Jil Anderson RN..........12/30/2023 4:09 PM Pateros CC: Health Maintenance General Jil Ledesma RN [...] TSH WITH REFLEX Routine 07/01/2024 2:05 PM DIRECTOR OF ACADEMIC SUPPORT Abnormal uterine bleeding (AUB) Irregular menses PROLACTIN Routine 07/01/2024 2:05 PM DIRECTOR OF ACADEMIC SUPPORT Abnormal uterine bleeding (AUB) FSH Routine 07/01/2024 2:05 PM DIRECTOR OF ACADEMIC SUPPORT Abnormal uterine bleeding (AUB) US PELVIS COMPLETE TV Routine 06/27/2024 7:54 AM DIRECTOR OF ACADEMIC SUPPORT S/P endometrial ablation Vaginal spotting SCAN-ULTRASOUND REPORT 06/15/2024 12:00 AM DIRECTOR OF ACADEMIC SUPPORT TRICHOMONAS, AMBER, AND BACTERIAL VAGINOSIS BY KRISHAN Routine 06/13/2024 4:22 PM DIRECTOR OF ACADEMIC SUPPORT Yeast vaginitis AEROBIC BACTERIAL CULTURE, STAIN Routine 05/27/2024 11:59 AM DIRECTOR OF ACADEMIC SUPPORT Abscess, scalp Cellulitis of head or scalp COVID/FLU/RSV PANEL Routine 05/27/2024 1 1:59 AM DIRECTOR OF ACADEMIC SUPPORT Influenza-like illness HIV 1/2 ANTIGEN/ANTIBODY FOURTH GENERATION W/RFL (QUEST) Routine 02/23/2024 3:28 PM CDT Screen for STD (sexually transmitted disease) ANTI HCV Routine 02/23/2024 3:28 PM CDT Screen for STD (sexually transmitted disease) SALES AGENT PROTECTIVE SERVICE THIN PREP PAP SCREEN IMAGED Routine 09/19/2021 4:58 PM CDT Screening for malignant neoplasm of cervix from Last 3 Months or Most Recently Relevant to Health Maintenance Results * TSH WITH REFLEX (07/01/2024 2:05 PM DIRECTOR OF ACADEMIC SUPPORT) TSH W/REFLEX TO FT4 1.63 mIU/L [facility] Comment: Reference Range > or = 20 Years 0.40-4.50 Ranges First trimester 0.26-2.66 Second trimester 0.55-2.73 Third trimester 0.43-2.91 Blood BLOOD SPECIMEN / Unknown 07/01/2024 2:05 PM DIRECTOR OF ACADEMIC SUPPORT 07/01/2024 2:05 PM DIRECTOR OF ACADEMIC SUPPORT Kiara QUINTEROS CHEMISTRY Final R esult [employer] [facility] [address] [place] [address], [facility] [address] [place] [address] * PROLACTIN (07/01/2024 2:05 PM DIRECTOR OF ACADEMIC SUPPORT) PROLACTIN 4.1 ng/mL [facility] Comment: Reference Range Females Non- 3.0-30.0 10.0-209.0 Postmenopausal 2.0-20.0 Blood BLOOD SPECIMEN / Unknown 07/01/2024 2:05 PM DIRECTOR OF ACADEMIC SUPPORT 07/01/2024 2:05 PM DIRECTOR OF ACADEMIC SUPPORT Kiara QUINTEROS SEND OUTS Final R esult Performing Organization Address [facility]/ZIP Co de Phone Number [employer] [facility] [address] [place] [address], [place] [phone] [facility] [address] [place] [address] * FSH (07/01/2024 2:05 PM DIRECTOR OF ACADEMIC SUPPORT) FSH 2.5 mIU/mL [facility] Comment: Reference Range Follicular Phase 2.5-10.2 Mid-cycle Peak 3.1-17.7 Luteal Phase 1.5- 9.1 Postmenopausal 23.0-116.3 Blood BLOOD SPECIMEN / Unknown 07/01/2024 2:05 PM DIRECTOR OF ACADEMIC SUPPORT 07/01/2024 2:05 PM DIRECTOR OF ACADEMIC SUPPORT Kiara QUINTEROS CHEMISTRY Final R esult Performing Organization Address [facility] Co de Phone Number [employer] [facility] [address] [place] [address], [place] [phone] [facility] [address] [place] [address] * [place] PELVIS COMPLETE TV (06/27/2024 7:54 AM DIRECTOR OF ACADEMIC SUPPORT) Anatomical Region Laterality Modality Pelvis, OVARIES, UTERUS Ultrasou nd 06/27/2024 9:41 AM DIRECTOR OF ACADEMIC SUPPORT Impressions 06/27/2024 9:41 AM DIRECTOR OF ACADEMIC SUPPORT Endometrial thickness 6.8 millimeters. No endometrial fluid. Two fibroids are present measuring 2.7 cm and 1.2 cm. These both are adjacent to the endometrium without mass effect. Dictated by Joshua Mejia MD @ 06/27/2024 9:41:43 AM (Electronically Signed) Narrative 06/27/2024 9:41 AM DIRECTOR OF ACADEMIC SUPPORT For Patients: As a result of the [...] t * SCAN-ULTRASOUND REPORT (06/15/2024 12:00 AM DIRECTOR OF ACADEMIC SUPPORT) Anatomical Region Laterality Modality Other us Scanner OTHER Final Result * (ABNORMAL) TRICHOMONAS, AMBER, AND BACTERIAL VAGINOSIS BY KRISHAN (06/13/2024 4:22 PM DIRECTOR OF ACADEMIC SUPPORT) AMBER SPECIES Positive(A) Negative 06/14/19 2:12 PM DIRECTOR OF ACADEMIC SUPPORT [facility] AMBER GLABRATA Negative Negative 06/14/2024 2:12 PM DIRECTOR OF ACADEMIC SUPPORT [facility] TRICHOMONAS VVA Negative Negative 5 2:12 PM DIRECTOR OF ACADEMIC SUPPORT [facility] BACTERIAL VAGINOSIS Negative Negative 06/14/2024 2:12 PM DIRECTOR OF ACADEMIC SUPPORT [facility] Other VAGINAL SWAB / Unknown Non-Blood / Unknown 06/13/2024 4:22 PM DIRECTOR OF ACADEMIC SUPPORT 06/13/2024 4:22 PM DIRECTOR OF ACADEMIC SUPPORT Chrissie Young MD MICROBIOLOGY Final Resul t [facility] [address] [place] [address], [place] * COVID/FLU/RSV PANEL (05/27/2024 11:59 AM DIRECTOR OF ACADEMIC SUPPORT) COVID 19 [facility] Negative Negative 05/27/2024 11:26 PM DIRECTOR OF ACADEMIC SUPPORT [facility] Comment:All PCR tests are rodriguez bject to false negative result due to variability in viral load and collection technique. A negative result does not rule out a SARS-CoV-2 infection. Clinical correlation required. INFLUENZA A PCR Negative 11:26 PM DIRECTOR OF ACADEMIC SUPPORT [facility] INFLUENZA B PCR Negative 11:26 PM DIRECTOR OF ACADEMIC SUPPORT [facility] Respiratory Syncytial Virus Negative 05/27/2024 11:26 PM DIRECTOR OF ACADEMIC SUPPORT [facility] Swab NASOPHARYNGEAL SWAB / Unknown Non-Blood / Unknown 05/27/2024 11:59 AM DIRECTOR OF ACADEMIC SUPPORT 05/27/2024 11:59 AM DIRECTOR OF ACADEMIC SUPPORT Brittani QUINTEROS MICROBIOLOGY Final Result Performing Organization Address City/[facility]/ZIP Co de Phone Number [facility] [address] [place] [address], * (ABNORMAL) AEROBIC BACTERIAL CULTURE, STAIN (05/27/2024 11:59 AM DIRECTOR OF ACADEMIC SUPPORT) CULTURE RESULT(A) 05/31/2024 11:12 AM DIRECTOR OF ACADEMIC SUPPORT [facility] CULTURE 1+ Staphylococcus coagulase negative 05/31/2024 11:12 AM DIRECTOR OF ACADEMIC SUPPORT [facility] GRAM STAIN 1+ PMNs 05/31/2024 11:12 AM DIRECTOR OF ACADEMIC SUPPORT [facility] GRAM STAIN 3+ RBCs 05/31/2024 11:12 AM DIRECTOR OF ACADEMIC SUPPORT [facility] GRAM STAIN No Epithelial cells 05/31/2024 11:12 AM DIRECTOR OF ACADEMIC SUPPORT [facility] GRAM STAIN No organisms seen 025 11:12 AM DIRECTOR OF ACADEMIC SUPPORT [facility] Other (Other) Non-Blood / Unknown 05/27/2024 11:59 AM DIRECTOR OF ACADEMIC SUPPORT 05/27/2024 11:59 AM DIRECTOR OF ACADEMIC SUPPORT Narrative Organism Antibiotic Method Susceptibility Staphylococcus coagulase negative OXACILLIN <=0.25: S Comment:Oxacillin rodriguez sceptible should not be interpreted as penicillin or amoxicillin susceptible. Staphylococcus coagulase negative CLINDAMYCIN >=4: R Staphylococcus coagulase negative DOXYCYCLINE <=0.5: S Staphylococcus coagulase negative CEFAZOLIN S Staphylococcus coagulase negative TRIMETHOPRIM/SULF <=0.5/9.5: S Brittani QUINTEROS MICROBIOLOGY Final Result Performing Organization Address [facility]/State/ZIP Co de Phone Number [facility] [address] [place] [address], * HIV 1/2 AG/AB 4TH GEN W/RFL (QUEST) (02/23/2024 3:28 PM CDT) HIV AG/AB, 4TH GEN NON-REACT RACHEL NON-REACT RACHEL [facility] [place] Comment: HIV-1 antigen and HIV-1/HIV-2 antibodies were [...] purpose. For additional information please refer to http://[employer]/faq/YEX844 (This link is being provided for informational/ educational purposes only.) The performance of this assay has not been clinically validated in patients less than 2 years old. Blood BLOOD SPECIMEN / Unknown 02/23/2024 3:28 PM CDT 02/23/2024 3:28 PM CDT Terri QUINTEROS SEND OUTS Final Res ult [employer] [facility] [address] [place] [address], [facility] [address] [place] [address] * ANTI HCV (02/23/2024 3:28 PM CDT) HEPATITIS C ANTIBODY NON-REACTI VE NON-REACT RACHEL [facility] Comment: HCV antibody was non-reactive. There is no laboratory evidence of HCV infection. In most cases, no further action is required. However, if recent HCV exposure is suspected, a test for HCV RNA (test code 05017) is suggested. For additional information please refer to http://education.[employer]/faq/QIV15i8 (This link is being provided for informational/ educational purposes only.) Blood BLOOD SPECIMEN / Unknown 02/23/2024 3:28 PM CDT 02/23/2024 3:28 PM CDT Terri QUINTEROS SEND OUTS Final Res ult [employer] [facility] [address] [place] [address], [facility] [address] [place] [address] * SALES AGENT PROTECTIVE SERVICE THIN PREP PAP SCREEN IMAGED (09/19/2021 4:58 PM CDT) Case Report Gynecologic Cytology Report Case: [id number] Authorizing Provider: Prerna Garza PA Collected: 09/19/2021 1658 Ordering Location: [facility] Received: 09/19/2021 1713 Clinic First Screen: Columba Jorge Pathologist: Pradip Daniel Jr., MD Specimen: SALES AGENT PROTECTIVE SERVICE ThinPrep Vial Screening, Cervical 10/08/2021 12:40 PM CDT [facility] INTERPRETATION/ RESULT NEGATIVE FOR INTRAEPITHELIAL LESION OR MALIGNANCY (NIL) (none) 10/08/2021 12:40 PM CDT [facility] [employer] ENTRAL LABORATORY R NON-NEOPLASTIC FINDING(S) Reactive cellular changes associated with inflammation/repa ir 10/08/2021 12:40 PM CDT [facility] SPECIMEN ADEQUACY Satisfactory for evaluation Endocervical component present 10/08/2021 12:40 PM CDT [facility] HPV REQUEST HPV and PAP 10/08/2021 12:40 PM CDT [facility] Date of LMP hormonally suppressed 10/08/2021 12:40 PM CDT [facility] Last Pap Date 07/20/18 10/08/2021 12:40 PM CDT [facility]OR[facility] Last Pap Result NIL 12:40 PM CDT [facility] Abnormal Pap or Randolph Bx in last 5 years No 10/08/2021 12:40 PM CDT [facility] Menstrual Status Hormonally Suppressed 10/08/2021 12:40 PM CDT [facility] Randolph Bx Done Today No 10/08/2021 12:40 PM CDT [facility] Additional Information None given 10/08/2021 12:40 PM CDT [facility] LABOR[facility]ORY Comment: Cytology is screened at [facility] - [address], [place] [address] and [facility] - [address], [place] [address] and [facility] - [address] [place] [address] Interpreted at [facility] - [address], [place] [address] Automated Review Successful 10/08/2021 12:40 PM CDT [facility] Comment:Specimen processed s uccessfully by automated prorate clerk device, ThinPrep Imaging System, [employer] ANCILLARY TESTING SALES AGENT PROTECTIVE SERVICE HPV Ordered, Please see separate report 10/08/2021 12:40 PM CDT [facility] Note The pap test is [...] and malignant lesions. 10/08/2021 12:40 PM CDT [facility] Other (Cervical) Non-Blood / Unknown 09/19/2021 4:58 PM CDT 09/19/2021 5:13 PM CDT us Prerna QUINTEROS PATHOLOGY/CYTOLOGY Final R esult [facility] LAB[facility]ATORY [address] [place] [address], [place] from Last 3 Months or Most Recently Relevant to Health Maintenance Insurance MEDICARE PB ONLY MEDICARE PART B HB ONLY MEDICARE PART A HB ONLY [employer] ACCESSABILITY [id number] [place] [id number] MEDICARE PB ONLY [employer] CHOICE CARE [id number] [place] [id number] HC MEDICARE PPS [id number] [place] [id number] [facility] [employer] INS Advance Directives * Full [...] 3:11 PM 08/27/2009 7:09 PM Care Teams [employer] Fuel Injection Servicer Relationship Specialty Start Date End Date Terri Orosco PA [address] [place] [address] PCP - General Physician Picture Painter 01/20/24 Jil Anderson, RN [address] [place] [address] [facility] Care Coordination Chrome Worker 06/28/19 [employer] [address] [place] [address] Psychiatry Psychiatry 12/17/23 [facility] [address] [facility] [address] [place] [address] Psychologist Psychology 12/17/23
--- NOTE | 2024-08-09 19:21 | CRLHL7_ITS ---
For Patients: As a result of the Century Cures Act, medical imaging exams and procedure reports are released immediately into your electronic medical record. You may view this report before your referring provider. If you have questions, please contact your health care provider. INDICATION: Right upper quadrant pain. COMPARISON: CT of the abdomen and pelvis 11/19/2023. TECHNIQUE: Real time holder scale imaging and color Doppler analysis was performed of the right upper quadrant. FINDINGS: Liver: The liver measures 15.9 cm in length. Normal echogenicity. No focal liver lesions identified. Gallbladder: There is a 1.6 cm mobile shadowing stone. No wall thickening or pericholecystic fluid. Negative sonographic Chatterjee sign. Bile ducts: The common bile duct measures 4 mm in diameter. Pancreas: Not visualized due to shadowing bowel gas. Right kidney: The right kidney measures 10.3 cm in length. No hydronephrosis, calculus, or mass. Vascular: Normal caliber abdominal aorta. The hepatic IVC appears patent. The main portal vein is patent with normal flow direction. IMPRESSION: 1. Cholelithiasis without sonographic evidence of acute cholecystitis. 2. The pancreas was not visualized. 3. Exam otherwise unremarkable. Dictated by vIett Caballero MD @ 08/09/2024 9:28:18 PM (Electronically Signed)
--- NOTE | 2024-08-09 19:39 | ED_ITS ---
HPI - Abdominal Pain General Chief Complaint: Abdominal Pain Stated Complaint: Sharp Abdomen pain Time Seen by Provider: 08/09/24 18:38 History of Present Illness HPI narrative: This 33-year-old female comes in reporting right upper quadrant abdominal pain that has been coming and going over the past 4 5 days. She states that she feels through to her back at times. She thinks that it might be worsened by taking food. She does not report any fevers, nausea, vomiting, or diarrhea. Related Data Home Medications ?Medication ?Instructions ?Recorded ?Confirmed bupropion HCl 300 mg 24 hr tablet, 300 mg PO DAILY 12/05/21 08/09/24 extended release fexofenadine 180 mg tablet 180 mg PO QDAY 12/05/21 08/09/24 (Mar[facility] Allergy) omeprazole 20 mg capsule,delayed 20 mg PO DAILY 01/13/22 08/09/24 release melatonin 5 mg tablet 5 mg PO HS PRN 09/11/22 08/09/24 venlafaxine 150 mg 150 mg PO DAILY 07/26/23 08/09/24 capsule,extended release 24 hr metformin 500 mg tablet 500 mg PO BID 06/15/24 08/09/24 Previous Rx's ?Medication ?Instructions ?Recorded aripiprazole 15 mg tablet (Abilify) 15 mg PO DAILY #15 tabs 01/23/24 Allergies Allergy/AdvReac Type Severity Reaction Status Date / Time azithromycin Allergy Severe Throat Verified 08/09/24 18:47 swelling cat dander Allergy Verified 08/09/24 18:47 house dust Allergy Verified 08/09/24 18:47 ragweed pollen Allergy Verified 08/09/24 18:47 Review of Systems Status of ROS Reports: 10 or more systems reviewed and unremarkable except as noted in History and below Narrative Constitutional: No fevers, no weight gain or loss. Eyes: No discharge. No vision changes. HENT: No congestion, no sore throat, no ear pain. Cardiovascular: No chest pain, no palpitations. Respiratory: No shortness of breath, no wheezes, no cough. Gastrointestinal: No vomiting, no diarrhea. Abdominal pain as described above. Genitourinary: No dysuria, no hematuria. Musculoskeletal: Normal range of motion. Skin: No rashes, no pruritis. Neurological: No dizziness, weakness, sensory change, speech change. Endo/Heme/Allergies: No bruising or bleeding. No polydipsia. Pysch: no suicidality, no anxiety, no insomnia. All other systems reviewed and are negative. 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 (ICD-10) Moderate episode of recurrent major depressive disorder ?F33.1 - Major depressive disorder, recurrent, moderate (ICD-10) Mild intellectual disabilities ?F70 - Mild intellectual disabilities (ICD-10) Chronic GERD ?K21.9 - Gastro-esophageal reflux disease without esophagitis (ICD-10) Hyperlipidemia, unspecified ?E78.5 - Hyperlipidemia, unspecified (ICD-10) Autism spectrum disorder ?F84.0 - Autistic disorder (ICD-10) Constipation, unspecified ?K59.00 - Constipation, unspecified (ICD-10) Allergic rhinitis, unspecified ?J30.9 - Allergic rhinitis, unspecified (ICD-10) Depression with anxiety ?F41.8 - Other specified anxiety disorders (ICD-10) Surgical History Status post breast reduction ?Z98.890 - Other specified postprocedural states (ICD-10) Perineal abscess (02/2009) ?L02.215 - Cutaneous abscess of perineum (ICD-10) S/P tonsillectomy and adenoidectomy (2014) ?Z90.89 - Acquired absence of other organs (ICD-10) History of tubal ligation (06/2017) ?Z98.51 - Tubal ligation status (ICD-10) Family History Father High cholesterol Maternal Grandmother Diabetes Social History Narrative: Single 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 HEENT: Normocephalic, atraumatic. Neck: Normal range of motion. Nontender. Supple. Heart: Regular. No murmurs. Normal rate. Intact distal pulses. Lungs: Clear to auscultation. No chest discomfort. No wheezes, rhonchi, or rales. Abdomen: Normal bowel sounds. Mild tenderness in the right upper quadrant. No rebound tenderness. Genitalia: Deferred. Back: No midline tenderness. Normal range of motion. Extremities: Normal range of motion. No injury. Skin: Intact. No rash. Warm. No erythema or pallor. Neurologic: No altered sensation. No weakness. Alert and oriented. Psychiatric: No suicidality. No anxiety or depression. No insomnia. Nursing notes and vitals signs are reviewed. Const: Vital Signs, click to edit/add: Vital Signs - 24 hr 08/09/24 18:41 Temperature 97.6 F Pulse Rate [Pulse Oximeter] 86 Respiratory Rate 18 Blood Pressure [Ri ght Upper Arm] 119/77 Pulse Oximetry 100 Oxygen Delivery Me thod Room Air Course Vital Signs Vital signs: Initial Vital Signs Temperature 97.6 F 08/09/24 18:41 Temperature Source Temporal Artery Scan 08/09/24 18:41 Pulse Rate 86 08/09/24 18:41 Pulse Rhythm Regular 08/09/24 18:41 Respiratory Rate 18 08/09/24 18:41 Blood Pressure 119/77 08/09/24 18:41 Blood Pressure Mean 91 08/09/24 18:41 Blood Pressure Position Sitting 08/09/24 18:41 Pulse Oximetry 100 08/09/24 18:41 Oxygen Delivery Method Room Air 08/09/24 18:41 Vital Signs Temperature 97.6 F 08/09/24 18:41 Pulse Rate 86 08/09/24 18:41 Respiratory Rate 18 08/09/24 18:41 Blood Pressure 119/77 08/09/24 18:41 Pulse Oximetry 100 08/09/24 18:41 Oxygen Delivery Method Room Air 08/09/24 18:41 Temperature 97.6 F 08/09/24 18:41 Pulse Rate 86 08/09/24 18:41 Respiratory Rate 18 08/09/24 18:41 Blood Pressure 119/77 08/09/24 18:41 Pulse Oximetry 100 08/09/24 18:41 Oxygen Delivery Method Room Air 08/09/24 18:41 MDM - Abdominal Pain MDM Narrative Medical decision making narrative: This patient comes in with episodes of right upper quadrant pain that is suspicious for cholelithiasis. An ultrasound is obtained and does show a stone in the gallbladder that does not appear to be obstructive. There is no sign of cholecystitis or obstruction. Patient is not having much discomfort at this time. She is okay to be discharged home and is encouraged to follow-up with surgery clinic if desiring to have the gallbladder removed. She did receive a prescription for Toradol. Discharge Plan Discharge Clinical Impression: Cholelithiasis Patient Disposition: Home, Self-Care Condition: Stable Additional Instructions: Take medication as needed and indicated. Follow-up with surgery clinic for ongoing management as needed. Dial [phone] for appointment. Prescriptions: No Action bupropion HCl 300 mg tablet extended release 24 hr 300 mg PO DAILY fexofenadine [María Allergy] 180 mg tablet 180 mg PO QDAY omeprazole 20 mg capsule,delayed release(DR/EC) 20 mg PO DAILY melatonin 5 mg tablet 5 mg PO HS PRN aripiprazole [Abilify] 15 mg tablet 15 mg PO DAILY Qty: 15 0RF venlafaxine 150 mg capsule,extended release 24hr 150 mg PO DAILY metformin 500 mg tablet 500 mg PO BID Follow Up/Referrals: Terri Orosco PA-C [Primary Care Provider] - Stand Alone Forms[facility] Info Instructions
[2024-08-09 21:18] VITALS: BP 122/65; PULSE 76; RESP 20; O2SAT 98
== END 2024-08-09 21:20 | disposition home or self-care (01) ==
PROVIDERS: Emergency Provider Emergency Medicine Emergency Medical Services; PCP Student in an Organized Health Care Education/Training Program
DX: K80.20 Calculus of gallbladder without cholecystitis without obstruction (principal)
CPT/HCPCS: 76705; 99283; 99284

== ENCOUNTER 2024-09-07 08:30 | Outpatient (RCR) | payer MEDICARE, OTHER, SELFPAY | END 2025-01-05 23:59 | disposition home or self-care (01) | PROVIDERS: PCP Student in an Organized Health Care Education/Training Program; Visit Provider Physician Assistant | DX: N39.46 Mixed incontinence (principal); K59.00 Constipation, unspecified; Z51.89 Encounter for other specified aftercare | CPT/HCPCS: 97112; 97162; 97530; 97535 ==

== ENCOUNTER 2024-10-18 06:12 | Day surgery (SDC) | payer MEDICARE, OTHER, SELFPAY ==
[2024-10-18] VITALS (13 sets, daily range): BP systolic 98–123; BP diastolic 62–80; PULSE 78–94; RESP 12–18; TEMP 36.2–37; O2SAT 89–96; BMI 25.4
[2024-10-18] MEDS: LACTATED RINGERS 1000 ML 1,000 ML 100 ML IV ×2 (06:45→09:36)
[2024-10-18] MEDS: SODIUM CHLORIDE 0.9 % (FLUSH) 10 ML SYRINGE IVF (06:45)
--- NOTE | 2024-10-18 07:13 | P.GSOP_ITS ---
Operative Note Date of procedure: 10/18/24 Pre-op diagnosis: 1. Biliary colic. Post-op diagnosis: Same Type of Procedure: 1. Laparoscopic cholecystectomy. Indications: A 33-year-old female was seen in clinic for evaluation of recent episodes of right-sided abdominal pain. The pain was present for the last few weeks prior to her clinic visit. The pain was worse when doing heavy lifting and was described as sharp. The pain was also present after eating larger meals and fatty food. The pain radiated to the right mid back. Patient was seen in the emergency room in July of 2024. A gallbladder ultrasound was obtained that showed cholelithiasis with a large stone in the neck of the gallbladder. The gallbladder wall was 2 mm thick and the common bile duct was normal. On clinical exam patient had discomfort to palpation in the right upper quadrant with negative Chatterjee sign. Given patient's clinical history and her ultrasound findings, her symptoms were not classic for gallbladder disease. Discussion was held whether to continue observing her symptoms or proceeding with laparoscopic cholecystectomy, and patient elected to proceed with laparoscopic cholecystectomy. The patient was aware that her symptoms may not completely resolve after surgery. The procedure was discussed in detail. The risks associated procedure including infection, bleeding, injury to intra-abdominal organs, injury to the common bile duct were all discussed with the patient, and she agreed to proceed. Procedure Description: After discussing the risks and benefits of the procedure, the patient signed informed consent.? The operative site was marked and the patient was brought to the operating room and placed on the operating table in supine position.? Care was taken to pad the patient's pressure points.?? The patient was then intubated by anesthesia.?? The operative site was then prepped and draped in the usual sterile fashion.? A time-out was then performed. A 5-mm laparoscopy port was placed in the left upper quadrant guided by a 5-mm laparoscope placed into a translucent trochar.~ Passage through the layers of the abdominal wall was visualized with the laparoscope.~ A pneumoperitoneum was established. A 0-degree 5-mm laparoscope was advanced into the abdomen. The abdomen was briefly surveyed, and no adhesions were noted. A 10-mm port were placed infraumbilically and two more 5 mm ports were placed on the right under direct visualization by laparoscope. The camera was then changed to 10 mm 30- degree scope and placed into the abdomen through the 10 mm port. The left upper quadrant port entrance was examined and no injury to intra-abdominal organs was identified. The gallbladder was identified, the fundus grasped and retracted cephalad. Omental adhesions were covering the anterior portion of the gallbladder. These adhesions were taken down with hook cautery. The duodenum was adherent to gallbladder infundibulum with wispy adhesions. Those adhesions were taken down with cautery as well with care taken not to injure the duodenum. The infundibulum was grasped and retracted laterally, exposing the peritoneum overlying the triangle of Calot. This was then divided and exposed in a blunt fashion and with hook cautery. Common bile duct was not identified but care was taken not to injure it. The cystic duct was clearly identified and bluntly dissected circumferentially. Cystic artery was identified and tissues around it were dissected off. There was a vein posterior to the cystic duct. This was clearly going into the gallbladder. This was clipped with 5 mm clips on the patient's side and specimen side and divided with hook cautery. The cystic artery and the cystic duct were clearly going into the gallbladder. The cystic duct was then doubly ligated with surgical clips on the patient's side and singly clipped on the gallbladder side and divided. The cystic artery was then similarly ligated with clips and divided as well. The gallbladder was dissected from the liver bed in retrograde fashion using hookcautery. Bleeding was noted from the vein going into the gallbladder in the medial gallbladder fossa. This was controlled with 5 mm clip. During the dissection, the gallbladder wall was entered and small amount of clear bile spilled into the abdominal cavity. This was suctioned out. The gallbladder was then mobilized off the gallbladder fossa, and placed into an Endo-Catch bag, and removed through the infraumbilical incision. Surgical site was examined for bleeding. No bleeding was seen in the surgical field. The fascia of the infraumbilical incision was then closed with 0-0 vicryl sutures using Surinder Maranda needle under direct visualization. Pneumoperitoneum was completely reduced after viewing removal of the trocars under direct vision. The skin was then closed with 4-0 monocryl and steristrips were applied. Instrument, sponge, and needle counts were correct at closure and at the conclusion of the case. The patient was transferred to PACU in stable condition. Findings: No acute inflammation noted but omentum was overlying the anterior portion of the gallbladder suggestive of chronic inflammation. Anesthesia: GETA Surgeon: Gabbie Tellez MD Estimated blood loss (mL): 10 Specimen: Gallbladder Condition: stable Disposition: PACU
--- NOTE | 2024-10-18 07:13 | W.PM.H&PU ---
History & Physical Update History & Physical Update H&P Reviewed and patient assessed: No changes noted
[2024-10-18] MEDS: CEFAZOLIN 1 GM inj IVP (07:38)
[2024-10-18] MEDS: BUPIVACAINE 0.25% 30 ML INJECTION (08:25)
[2024-10-18] MEDS: LIDOCAINE 1%-EPI 1:100,000 20 ML INFILTRATI (08:25)
--- NOTE | 2024-10-18 08:45 | P.ANES_ITS ---
Anesthesia Charges Start Date/Time Anesthesia Start Date: 10/18/24 Anesthesia Start Time: 07:24 Stop Date/Time Anesthesia Stop Date: 10/18/24 Anesthesia Stop Time: 08:43 Coding CPT Codes CPT Codes: ANESTH SURG UPPER ABDOMEN - 93181 ([id number]) P2 - PATIENT W/MILD SYST DISEASE, QK - REGULATORY CONSULTANT 2-4 CNCRNT ANES PROC, QX - CHIEF ULTRASOUND TECHNOLOGIST SVC W/ MD MED DIRECTION
--- NOTE | 2024-10-18 08:45 | W.ANESCHARGE ---
Anesthesia Charges Start Date/Time Anesthesia Start Date: 10/18/24 Anesthesia Start Time: 07:24 Stop Date/Time Anesthesia Stop Date: 10/18/24 Anesthesia Stop Time: 08:43 Coding CPT Codes CPT Codes: ANESTH SURG UPPER ABDOMEN - 57471 ([id number]) P2 - PATIENT W/MILD SYST DISEASE, QK - TERMINOLOGIST 2-4 CNCRNT ANES PROC, QX - DEAF AND HARD OF HEARING TEACHER SVC W/ MD MED DIRECTION
--- NOTE | 2024-10-18 09:13 | SUR.PHASEI ---
patient met discharge criteria per anesthesia
--- NOTE | 2024-10-18 11:04 | P.ANES_ITS ---
Anesthesia Charges Start Date/Time Anesthesia Start Date: 10/18/24 Anesthesia Start Time: 07:24 Stop Date/Time Anesthesia Stop Date: 10/18/24 Anesthesia Stop Time: 08:43 Coding CPT Codes CPT Codes: ANESTH SURG UPPER ABDOMEN - 66826 ([id number]) QK - COMMUNITY DEVELOPMENT PLANNER 2-4 CNCRNT ANES PROC, QX - CORNICE MAKER SVC W/ MD MED DIRECTION, P2 - PATIENT W/MILD SYST DISEASE
--- NOTE | 2024-10-18 11:04 | W.ANESCHARGE ---
Anesthesia Charges Start Date/Time Anesthesia Start Date: 10/18/24 Anesthesia Start Time: 07:24 Stop Date/Time Anesthesia Stop Date: 10/18/24 Anesthesia Stop Time: 08:43 Coding CPT Codes CPT Codes: ANESTH SURG UPPER ABDOMEN - 49300 ([id number]) QK - DRUMS TEACHER 2-4 CNCRNT ANES PROC, QX - PROFESSOR OF NURSING SVC W/ MD MED DIRECTION, P2 - PATIENT W/MILD SYST DISEASE
== END 2024-10-18 10:48 | disposition home or self-care (01) ==
PROVIDERS: PCP Student in an Organized Health Care Education/Training Program; Visit Provider Surgery
PROC: 0FT44ZZ Resection of Gallbladder, Percutaneous Endoscopic Approach (ICD-10-PCS; CPT 47562; principal; 2024-10-18 07:30)
DX: K80.20 Calculus of gallbladder without cholecystitis without obstruction (principal)
CPT/HCPCS: 47562; 00790; J0330; J0665; J0690; J1171; J2250; J2704; J3010; J3490; J7120

== ENCOUNTER 2025-04-14 12:11 | Emergency (ER) | payer MEDICARE, OTHER, SELFPAY ==
--- OUTSIDE RECORDS SUMMARY | 2025-04-14 12:13 | XMS_ITS | Clinical Summary ---
Author Organization [facility] Address [address] [place] [address] Care Team Providers Care Skein Yard Drier Name Role Phone Jil Anderson RN Unavailable [phone] Terri Orosco Primary Care Provider [phone] Allergies Active Allergy Reactions Criticality Noted Date [...] 150 mg by mouth. 09/26/19 23 Active multivit with iron,minerals (MULTIVITAMIN AND MINERALS ORAL) Take by mouth. Active metFORMIN (GLUCOPHAGE) 500 mg tablet Take 500 mg by mouth two times daily with meals. 12/15/19 24 Active fluticasone (50 mcg per actuation) nasal solution (FLONASE)Indications:Pe rennial allergic rhinitis Inhale 2 Sprays in both nostrils once daily. 48 g 3 07/26/19 25 Active azelastine 137 mcg/actuation (ASTELIN) nasal sprayIndications:Allerg ic rhinoconjunctivitis Inhale 2 Sprays into affected nostril(s) two times daily. 90 mL 3 07/26/19 25 Active ARIPiprazole 10 mg tablet Take 1 Tablet by mouth once daily. 09/08/19 25 Active omeprazole (PRILOSEC) 20 mg Delayed-Release capsuleIndications:Chip Frier teresa GERD TAKE 1 CAPSULE BY MOUTH EVERY DAY BEFORE MEALS 90 Capsule 2 02/02/20 25 Active fluconazole (DIFLUCAN) 150 mg tabletIndications:Yeast vaginitis Take 1 Tablet (150 mg) by mouth one time for 1 dose. 1 Tablet 03/31/20 25 025 Active Problems Problem Noted Date Diagnosed Date [...] Encounters Date Type Department Care Team Description 04/11/2025 Telephone [facility] [address] [place] [address] Brittani Fontana PA Results 04/10/2025 8:35 AM MOBILE HOME SET UP PERSON Office Visit [facility] [address] [place] [address] Brittani Fontana PA Influenza Like Illness (headache, chills, nausea x2 days) 04/10/2025 Travel 03/30/2025 8:35 AM MOBILE HOME SET UP PERSON Office Visit [facility] [address] [place] [address] Brittani Fontana PA Vaginal Problem (burning, itching, swelling and sensitivity ) 03/30/2025 Travel 02/14/2025 9:00 AM CDT Office Visit [facility] [address] [facility] [address] [place] [address] Kiara Ruelas PA Yard Assistant Exam (discuss getting fibroids out/body odor is smelling off) 02/14/2025 Travel 01/31/2025 Refill [facility] [address] [place] [address] Terri Orosco PA Refill Request (Omeprazole) from Last 3 Months Immunizations Immunization Administration [...] on file Legal Sex Female 5:46 AM MOBILE HOME SET UP PERSON Gender Identity Not on file Sexual Orientation [...] Name Clin 018 36w 0d F Vag RIVERO N,BG JACOB Delivery Location:[facility] Last Filed Vital Signs Vital Sign Reading Time Taken Comments Blood Pressure 120/77 04/10/2025 8:42 AM MOBILE HOME SET UP PERSON Pulse 89 04/10/2025 8:42 AM MOBILE HOME SET UP PERSON Temperature 36.8 C (98.2 F) 04/10/2025 8:42 AM MOBILE HOME SET UP PERSON Respiratory Rate 16 06/14/2024 11:01 AM MOBILE HOME SET UP PERSON Oxygen Saturation 97% 04/10/2025 8:42 AM MOBILE HOME SET UP PERSON Inhaled Oxygen Concentration - - Weight 77.6 kg (171 lb) 04/10/2025 8:42 AM MOBILE HOME SET UP PERSON Height 170.2 cm (5' 7) 08/12/2024 10:22 AM CDT Body Mass Index 26.78 08/12/2024 10:22 AM CDT Plan of Treatment Upcoming Encounters Date Type Department Care Team (Late st Contact Info) Description 04/17/2025 9:50 AM MOBILE HOME SET UP PERSON Office Visit [facility] [address] [address] [place] [address] [place] [address] 04/17/2025 11:10 AM MOBILE HOME SET UP PERSON Office Visit [facility] [address] [place] [address] Terri Orosco PA [address] [place] [address] Health Maintenance Due Date Last Done Comments Hepatitis B series for 19+ (1 of 3 - 19+ 3-dose series) 08/24/2007 COVID-19 vaccine series ( season) 2025 06/01/2024, 03/10/2022, 2020, Additional history exists Influenza Vaccine (#1) 2025 , 03/04/2023, 03/10/2022, Additional history exists Depression screening for age 12+ 01/19/2025 01/20/2024, 09/30/2022, 10/17/2021, Additional history exists BMI (ht and wt on same day) for age 18+ 08/12/2025 08/12/2024, 06/14/2024, 04/26/2024, Additional history exists Pap test for age 21-65 09/19/2026 , 09/19/2021, 07/20/2018, Additional history exists Tetanus booster 05/15/2027 05/15/2017, 06/11/2011 RSV vaccine for adults or (1 - 1-dose 75+ series) 08/24/2063 HPV series for age 9-45 Completed 03/16/20, 11/09/2006, 09/07/2006 HIV for age 15-65 Completed 02/23/2024, , 11/24/2016, Additional history exists Hepatitis C screening for age 18-79 Completed 02/23/2024, 04/16/2017 Pneumococcal series for age 6-49 Aged Out No longer eligible based on patient's age to complete this topic Goals Goal Patient Goal Type Associated Problems Recent Progress Patient-Stated? Author [facility]: Health Maintenance General No Jil Anderson RN Note: Health Maintenance Tracking Grid Tonya will engage in management of preventive needs to improve health & wellness. Health Screening Dates of Last Completion & Other Notes Annual Preventive Check-Up 02/08 Mammogram 01/08 Colorectal Cancer Screening N/A Fall Risk no Flu Vaccine 01/08 Tetanus Booster (Every 10 Years) UTD COVID-19 Vaccine 2024 Hearing Exam N/A Vision Exam 01/08 Dental Exam 02/09 Aspirin Use N/A Cholesterol Check 02/08 Routine Diabetes: N/A Kidney Function Check Dilated Eye Exam A1C Check (Value) Blood Pressure Check Other (Bone Density, Preventive Vaccines, etc.) [facility]: [place] Choices General Yes Jil Anderson RN Note: Goal Title: [facility] - [place] Goals Goals Creation Date: 12/23/2024 Goals End Date: 12/22/2025 Tonya's [place]CHOICES goal statements (SMART): I will maintain current weight of #160 this target period Actions my Electronic Publishing Specialist (CC) will take to support me in achieving these goals: CC will monitor goal progress at biannual Support Plan review and record updates in [place]CHOICES. Jil Anderson RN..........12/23/2024 10:41 AM Procedures Procedure Name Priority Date/Time Associated Diagnosis Comments CBC WITH AUTO DIFFERENTIAL Routine 04/10/2025 9:15 AM MOBILE HOME SET UP PERSON Abdominal pain, generalized URINE CULTURE Routine 04/10/2025 9:15 AM MOBILE HOME SET UP PERSON Abdominal pain, generalized URINALYSIS MICROSCOPIC Routine 9:15 AM MOBILE HOME SET UP PERSON Abdominal pain, generalized URINALYSIS MACROSCOPIC - [facility] ONLY POC DIP ([facility]) Routine 04/10/2025 9:15 AM MOBILE HOME SET UP PERSON Abdominal pain, generalized C-REACTIVE PROTEIN Routine 04/10/2025 9: 15 AM MOBILE HOME SET UP PERSON Abdominal pain, generalized SEDIMENTATION RATE Routine 04/10/2025 9: 15 AM MOBILE HOME SET UP PERSON Abdominal pain, generalized CBC WITH AUTO DIFFERENTIAL Routine 04/10/2025 9:15 AM MOBILE HOME SET UP PERSON Abdominal pain, generalized BASIC METABOLIC PANEL Routine 04/10/2025 9:15 AM MOBILE HOME SET UP PERSON Abdominal pain, generalized COVID/FLU/RSV PANEL Routine 04/10/2025 8 :46 AM MOBILE HOME SET UP PERSON Chills URINE CULTURE Routine 03/30/2025 8:45 AM MOBILE HOME SET UP PERSON Lower urinary tract symptoms (LUTS) URINALYSIS MICROSCOPIC Routine 8:45 AM MOBILE HOME SET UP PERSON Lower urinary tract symptoms (LUTS) URINALYSIS MACROSCOPIC - [facility] ONLY POC DIP ([facility]) Routine 03/30/2025 8:45 AM MOBILE HOME SET UP PERSON Lower urinary tract symptoms (LUTS) TRICHOMONAS, AMBER, AND BACTERIAL VAGINOSIS BY KRISHAN Routine 03/30/2025 8:45 AM MOBILE HOME SET UP PERSON Acute vaginitis HIV 1/2 ANTIGEN/ANTIBODY FOURTH GENERATION W/RFL ([facility]) Routine 02/23/2024 3:28 PM CDT Screen for STD (sexually transmitted disease) ANTI HCV Routine 02/23/2024 3:28 PM CDT Screen for STD (sexually transmitted disease) KINESIOTHERAPIST THIN PREP PAP SCREEN IMAGED Routine 09/19/2021 4:58 PM CDT Screening for malignant neoplasm of cervix from Last 3 Months or Most Recently Relevant to Health Maintenance Results * UA Dip [[id number]] (04/10/2025 9:15 AM MOBILE HOME SET UP PERSON) Only the most recent of2 resultswithin the time period is included. BILIRUBIN NEGATIVE NEGATIVE 04/10/2025 9:42 AM MOBILE HOME SET UP PERSON [facility] COLOR YELLOW YELLOW 04/10/2025 9:42 AM MOBILE HOME SET UP PERSON [facility] APPEARANCE CLEAR CLEAR 04/10/2025 9:42 AM MOBILE HOME SET UP PERSON [facility] SPECIFIC GRAVITY > OR = 1.030 1.001 - 1.035 04/10/2025 9:42 AM MOBILE HOME SET UP PERSON [facility] Comment: Specific Grimes values resulted are outside the analytical measurement range of this device. Recommend repeat/additional testing as clinically indicated. PH 6.0 5.0 - 8.0 04/10/2025 9:42 AM MOBILE HOME SET UP PERSON [facility] GLUCOSE NEGATIVE NEGATIVE 04/10/2025 9:42 AM MOBILE HOME SET UP PERSON [facility] KETONES NEGATIVE NEGATIVE 04/10/2025 9:42 AM MOBILE HOME SET UP PERSON [facility] OCCULT BLOOD NEGATIVE NEGATIVE 04/10/2025 9:42 AM MOBILE HOME SET UP PERSON [facility] PROTEIN NEGATIVE NEGATIVE 04/10/2025 9:42 AM MOBILE HOME SET UP PERSON [facility] NITRITE NEGATIVE NEGATIVE 04/10/2025 9:42 AM MOBILE HOME SET UP PERSON [facility] LEUKOCYTE ESTERASE NEGATIVE NEGATIVE 04/10/2025 9:42 AM Urine URINE SPECIMEN / Unknown Non-Blood / Unknown 04/10/2025 9:15 AM MOBILE HOME SET UP PERSON 04/10/2025 9:15 AM MOBILE HOME SET UP PERSON Brittani QUINTEROS URINE Final Result [facility] [address] [place] [address], [place] [phone] [facility] [address] [place] [address], [place] [phone] * SEDIMENTATION RATE (04/10/2025 9:15 AM MOBILE HOME SET UP PERSON) Pathologist [facility] SED RATE BY MODIFIED LAZAROERGREN 14 < OR = 20 mm/h 04/11/2025 4:22 AM MOBILE HOME SET UP PERSON [facility] Blood BLOOD SPECIMEN / Unknown [facility] Collect / Unknown 04/10/2025 9:15 AM MOBILE HOME SET UP PERSON 04/10/2025 9:15 AM MOBILE HOME SET UP PERSON Brittani QUINTEROS HEMATOLOGY Final Result [facility] [address] [place] [address], * (ABNORMAL) CBC WITH AUTO DIFFERENTIAL (04/10/2025 9:15 AM MOBILE HOME SET UP PERSON) [facility] WHITE BLOOD CELL COUNT 8.3 3.8 - 10.8 Thousand/ uL 04/11/2025 3:15 AM MOBILE HOME SET UP PERSON [facility] RED BLOOD CELL COUNT 4.37 3.80 - 5.10 Million/u L 04/11/2025 3:15 AM MOBILE HOME SET UP PERSON [facility] HEMOGLOBIN 12.1 11.7 - 15.5 g/dL 04/11/2025 3:15 AM MOBILE HOME SET UP PERSON [facility] HEMATOCRIT 38.5 35.9 - 46.0 % 04/11/2025 3:15 AM MOBILE HOME SET UP PERSON [facility] MCV 88.1 81.4 - 101.7 fL 04/11/2025 3:15 AM MOBILE HOME SET UP PERSON [facility] MCH 27.7 27.0 - 33.0 pg 04/11/2025 3:15 AM MOBILE HOME SET UP PERSON [facility] MCHC 31.4(L) 31.6 - 35.4 g/dL 04/11/2025 3:15 AM MOBILE HOME SET UP PERSON [facility] Comment: For adults, a slight decrease in the calculated MCHC value (in the range of 30 to 32 g/dL) is most likely not clinically significant; however, it should be interpreted with caution in correlation with other red cell parameters and the patient's clinical condition. RDW 14.7 11.0 - 15.0 % 04/11/2025 3:15 AM MOBILE HOME SET UP PERSON [facility] PLATELET COUNT 373 140 - 400 Thousand/ uL 04/11/2025 3:15 AM MOBILE HOME SET UP PERSON [facility] MPV 11.1 7.5 - 12.5 fL 04/11/2025 3:15 AM MOBILE HOME SET UP PERSON [facility] NEUTROPHILS 63.3 % 04/11/2025 3:15 AM MOBILE HOME SET UP PERSON [facility] LYMPHOCYTES 25.9 % 04/11/2025 3:15 AM MOBILE HOME SET UP PERSON [facility] MONOCYTES 7.2 % 04/11/2025 3:15 AM MOBILE HOME SET UP PERSON [facility] EOSINOPHILS 2.8 % 04/11/2025 3:15 AM MOBILE HOME SET UP PERSON [facility] BASOPHILS 0.8 % 04/11/2025 3:15 AM MOBILE HOME SET UP PERSON [facility] ABSOLUTE NEUTROPHILS 5254 1500 - 7800 cells/uL 04/11/2025 3:15 AM MOBILE HOME SET UP PERSON [facility] ABSOLUTE LYMPHOCYTES 2150 850 - 3900 cells/uL 04/11/2025 3:15 AM MOBILE HOME SET UP PERSON [facility] ABSOLUTE MONOCYTES 598 200 - 950 cells/uL 04/11/2025 3:15 AM MOBILE HOME SET UP PERSON [facility] ABSOLUTE EOSINOPHILS 232 15 - 500 cells/uL 04/11/2025 3:15 AM MOBILE HOME SET UP PERSON [facility] ABSOLUTE BASOPHILS 66 0 - 200 cells/uL 04/11/2025 3:15 AM MOBILE HOME SET UP PERSON [facility] Blood BLOOD SPECIMEN / Unknown [facility] Collect / Unknown 04/10/2025 9:15 AM MOBILE HOME SET UP PERSON 04/10/2025 9:15 AM MOBILE HOME SET UP PERSON Brittani QUINTEROS HEMATOLOGY Final Result [facility] [place] [address], * (ABNORMAL) UA Micro [[id number]] (04/10/2025 9:15 AM MOBILE HOME SET UP PERSON) Only the most recent of2 resultswithin the time period is included. WBC UA NONE SEEN < OR = 5 /HPF 04/11/2025 4:39 AM MOBILE HOME SET UP PERSON [facility] RBC UA NONE SEEN < OR = 2 /HPF 04/11/2025 4:39 AM MOBILE HOME SET UP PERSON [facility] BACTERIA UA NONE SEEN NONE SEEN /HPF 04/11/2025 4:39 AM MOBILE HOME SET UP PERSON [facility] HYALINE CAST NONE SEEN NONE SEEN /LPF 04/11/2025 4:39 AM MOBILE HOME SET UP PERSON [facility] CALCIUM OXALATE CRYSTALS MODERATE( A) NONE OR FEW /HPF 04/11/2025 4:39 AM MOBILE HOME SET UP PERSON [facility] SQUAMOUS EPITHELIAL CELLS UA 0-5 < OR = 5 /HPF 04/11/2025 4:39 AM MOBILE HOME SET UP PERSON [facility] NOTE UA SEE NOTE 04/11/2025 4:39 AM MOBILE HOME SET UP PERSON [facility] Comment: This urine was analyzed for the presence of WBC, RBC, bacteria, casts, and other formed elements. Only those elements seen were reported. Urine URINE SPECIMEN / Unknown Non-Blood / Unknown 04/10/2025 9:15 AM MOBILE HOME SET UP PERSON 04/10/2025 9:15 AM MOBILE HOME SET UP PERSON us Brittani QUINTEROS URINE Final Result Performing Organization Address [facility] Co de Phone Number [facility] [address] [address], [place] [phone] * Urine Culture [[id number]] (04/10/2025 9:15 AM MOBILE HOME SET UP PERSON) Only the most recent of2 resultswithin the time period is included. CULTURE, URINE, ROUTINE SEE NOTE 04/12/2025 3:39 AM MOBILE HOME SET UP PERSON [facility] Comment: CULTURE, URINE, ROUTINE Micro Number: [id number] Test Status: Final Specimen Source: Urine Specimen Quality: Adequate Result: No Growth Urine URINE SPECIMEN / Unknown Non-Blood / Unknown 04/10/2025 9:15 AM MOBILE HOME SET UP PERSON 04/10/2025 9:15 AM MOBILE HOME SET UP PERSON us Brittani QUINTEROS MICROBIOLOGY Final Result Performing Organization Address [facility]/ZIP Co de Phone Number [facility] [address] [address], [place] [phone] * C-REACTIVE PROTEIN (04/10/2025 9:15 AM MOBILE HOME SET UP PERSON) C-REACTIVE PROTEIN (MG/L) 5.9 <8.0 mg/L 04/11/2025 3:41 PM MOBILE HOME SET UP PERSON [facility] Blood BLOOD SPECIMEN / Unknown [facility] / Unknown 04/10/2025 9:15 AM MOBILE HOME SET UP PERSON 04/10/2025 9:15 AM MOBILE HOME SET UP PERSON Brittani QUINTEROS CHEMISTRY Final Result [facility] [address] [place] [address], * BASIC METABOLIC PANEL (04/10/2025 9:15 AM MOBILE HOME SET UP PERSON) Pathologist [facility] SODIUM 140 135 - 146 mmol/L 04/11/2025 3:24 AM MOBILE HOME SET UP PERSON [facility] POTASSIUM 4.3 3.5 - 5.3 mmol/L 04/11/2025 3:24 AM MOBILE HOME SET UP PERSON [facility] CARBON DIOXIDE 29 20 - 32 mmol/L 04/11/2025 3:24 AM MOBILE HOME SET UP PERSON [facility] GLUCOSE 89 65 - 99 mg/dL 04/11/2025 3:24 AM MOBILE HOME SET UP PERSON [facility] Comment: Fasting reference interval CALCIUM 9.9 8.6 - 10.2 mg/dL 04/11/2025 3:24 AM MOBILE HOME SET UP PERSON [facility] CREATININE 0.73 0.50 - 0.97 mg/dL 04/11/2025 3:24 AM MOBILE HOME SET UP PERSON [facility] BUN/CREATININE RATIO SEE NOTE: 6 - 22 (calc) 04/11/2025 3:24 AM MOBILE HOME SET UP PERSON [facility] Comment: Not Reported: BUN and Creatinine are within reference range. EGFR 109 > OR = 60 mL/min/1. 73m2 04/11/2025 3:24 AM MOBILE HOME SET UP PERSON [facility] UREA NITROGEN (BUN) 16 7 - 25 mg/dL 04/11/2025 3:24 AM MOBILE HOME SET UP PERSON [facility] ELECTROLYTE BALANCE 7 7 - 17 mmol/L (calc) 04/11/2025 3:24 AM MOBILE HOME SET UP PERSON [facility] CHLORIDE 104 98 - 110 mmol/L 04/11/2025 3:24 AM MOBILE HOME SET UP PERSON [facility] Blood BLOOD SPECIMEN / Unknown [facility] Collect / Unknown 04/10/2025 9:15 AM MOBILE HOME SET UP PERSON 04/10/2025 9:15 AM MOBILE HOME SET UP PERSON Brittani QUINTEROS CHEMISTRY Final Result [facility] [address] [place] [address], [place] [phone] * COVID/FLU/RSV PANEL (04/10/2025 8:46 AM MOBILE HOME SET UP PERSON) Pathologist [facility] COVID 19 [facility]LEC[facility] Negative Negative 04/10/2025 7:53 PM MOBILE HOME SET UP PERSON [facility] INFLUENZA A PCR Negative 7:53 PM MOBILE HOME SET UP PERSON [facility] TRA [facility]ORATORY INFLUENZA B PCR Negative 7:53 PM MOBILE HOME SET UP PERSON [facility] Respiratory Syncytial Virus Negative 04/10/2025 7:53 PM MOBILE HOME SET UP PERSON [facility] Swab NASOPHARYNGEAL SWAB / Unknown Non-Blood / Unknown 04/10/2025 8:46 AM MOBILE HOME SET UP PERSON 04/10/2025 9:28 AM MOBILE HOME SET UP PERSON Brittani QUINTEROS MICROBIOLOGY Final Result [facility] [address] [place] [address], * (ABNORMAL) TRICHOMONAS, AMBER, AND BACTERIAL VAGINOSIS BY KRISHAN (03/30/2025 8:45 AM MOBILE HOME SET UP PERSON) Pathologist [facility] AMBER SPECIES Positive(A) Negative, NOT Detected 03/30/2025 7:55 PM MOBILE HOME SET UP PERSON [facility] AMBER GLABRATA Negative Negative 03/30/2025 7:55 PM MOBILE HOME SET UP PERSON [facility] TRICHOMONAS VVA Negative Negative, NOT Detected 03/30/2025 7:55 PM MOBILE HOME SET UP PERSON [facility] BACTERIAL VAGINOSIS Negative Negative, NOT Detected 03/30/2025 7:55 PM MOBILE HOME SET UP PERSON [facility] N[facility] Other VAGINAL SWAB / Unknown Non-Blood / Unknown 03/30/2025 8:45 AM MOBILE HOME SET UP PERSON 03/30/2025 8:45 AM MOBILE HOME SET UP PERSON Brittani QUINTEROS MICROBIOLOGY Final Result [facility] [address] [place] [address], [place] * HIV 1/2 AG/AB 4TH GEN W/RFL ([facility]) (02/23/2024 3:28 PM CDT) HIV AG/AB, 4TH GEN NON-REACT RACHEL NON-REACT RACHEL [facility] [place] Comment: HIV-1 antigen and HIV-1/HIV-2 antibodies were [...] purpose. For additional information please refer to http://education.Looxii/faq/OZY907 (This link is being provided for informational/ educational purposes only.) The performance of this assay has not been clinically validated in patients less than 2 years old. Blood BLOOD SPECIMEN / Unknown 02/23/2024 3:28 PM CDT 02/23/2024 3:28 PM CDT Terri QUINTEROS SEND OUTS Final Res ult [facility] [address] [facility] [address], [employer] [facility] [address] [place] [address] * ANTI HCV (02/23/2024 3:28 PM CDT) HEPATITIS C ANTIBODY NON-REACTI VE NON-REACT RACHEL [facility] Comment: HCV antibody was non-reactive. There is no laboratory evidence of HCV infection. In most cases, no further action is required. However, if recent HCV exposure is suspected, a test for HCV RNA (test code 29531) is suggested. For additional information please refer to http://education.Looxii/faq/CSY81e2 (This link is being provided for informational/ educational purposes only.) Blood BLOOD SPECIMEN / Unknown 02/23/2024 3:28 PM CDT 02/23/2024 3:28 PM CDT Terri QUINTEROS SEND OUTS Final Res ult [facility] [address] [place] [address], [facility] [address] [place] [address] * KINESIOTHERAPIST THIN PREP PAP SCREEN IMAGED (09/19/2021 4:58 PM CDT) Case Report Gynecologic Cytology Report Case: [id number] Authorizing Provider: Prerna Garza PA Collected: 09/19/2021 1658 Ordering Location: [facility] Received: 09/19/2021 1713 Clinic First Screen: Columba Jorge Pathologist: Pradip Daniel Jr., MD Specimen: KINESIOTHERAPIST ThinPrep Vial Screening, Cervical 10/08/2021 12:40 PM CDT [facility] INTERPRETATION/ RESULT NEGATIVE FOR INTRAEPITHELIAL LESION OR MALIGNANCY (NIL) (none) 10/08/2021 12:40 PM CDT [facility] at 1240 CDT OTHER NON-NEOPLASTIC FINDING(S) Reactive cellular changes associated with inflammation/repa ir 10/08/2021 12:40 PM CDT [facility] SPECIMEN ADEQUACY Satisfactory for evaluation Endocervical component present 10/08/2021 12:40 PM CDT [facility] ENTRAL LABORATORY HPV REQUEST HPV and PAP 10/08/2021 12:40 PM CDT [facility] Date of LMP hormonally suppressed 10/08/2021 12:40 PM CDT [facility] Last Pap Date 07/20/18 10/08/2021 12:40 PM CDT [facility] Last Pap Result NIL 12:40 PM CDT [facility] Abnormal Pap or [place] Bx in last 5 years No 10/08/2021 12:40 PM CDT [facility] Menstrual Status Hormonally Suppressed 10/08/2021 12:40 PM CDT [facility] [place] Bx Done Today No 10/08/2021 12:40 PM CDT [facility] Additional Information None given 10/08/2021 12:40 PM CDT [facility] Comment: Cytology is screened at [facility], Central Laboratory - [address] [facility] [address], [place] [address] and [facility] - [address], [place] [address] and [facility] - [address] [place] [address] Interpreted at [facility] - [address], [place] [address] Automated Review Successful 10/08/2021 12:40 PM CDT [facility] Comment:Specimen processed s uccessfully by automated wrap turner device, ThinPrep Imaging System, [employer] ANCILLARY TESTING KINESIOTHERAPIST HPV Ordered, Please see separate report 10/08/2021 12:40 PM CDT [facility] Note The pap test is a [...] and malignant lesions. 10/08/2021 12:40 PM CDT [facility] Other (Cervical) Non-Blood / Unknown 09/19/2021 4:58 PM CDT 09/19/2021 5:13 PM CDT us Prerna QUINTEROS PATHOLOGY/CYTOLOGY Final R esult [facility]-CENTRAL LABORATORY [address] [place] [address], [place] from Last 3 Months or Most Recently Relevant to Health Maintenance Insurance MEDICARE PB ONLY MEDICARE PART B HB ONLY MEDICARE PART A HB ONLY MEDICA ACCESSABILITY SOL[id number] [place] [address] MEDICARE PB ONLY [facility] [id number] [place] [id number] HC MEDICARE PPS [employer] INS Advance Directives * Full [...] 3:11 PM 08/27/2009 7:09 PM Care Teams Skein Yard Drier Relationship Specialty Start Date End Date Terri Orosco PA [address] [place] [address] PCP - General Physician Furnace Unloader 01/20/24 Jil Anderson RN [address] [place], [place] [id number] [facility] Care Coordination Electronic Publishing Specialist 06/28/19 [employer] [id number] [address], [place] [address] Psychiatry Psychiatry 12/17/23 [facility] [id number] [place] [address] Psychologist Psychology 12/17/23
== END 2025-04-14 13:29 | disposition left against medical advice (07) ==
LOC: ED 13:18
PROVIDERS: PCP Student in an Organized Health Care Education/Training Program
DX: Z53.21 Procedure and treatment not carried out due to patient leaving prior to being seen by health care provider (principal)

== ENCOUNTER 2025-04-22 13:55 | Emergency (ER) | payer MEDICARE, OTHER, SELFPAY ==
--- OUTSIDE RECORDS SUMMARY | 2025-04-22 13:57 | XMS_ITS | Clinical Summary ---
Author Organization [facility] Address [address] [place] [address] Care Team Providers Care Market Development Manager Name Role Phone Jil Anderson RN Unavailable [phone] Terri Orosco Primary Care Provider [phone] Allergies Active Allergy Reactions Criticality Noted Date [...] XL) 300 mg Extended-Release tablet 300 mg. 07/30/19 18 Active fexofenadine (TEMO) 180 mg tablet every day 12/06/19 22 Active venlafaxine (EFFEXOR XR) 150 mg Extended-Release capsule Take 150 mg by mouth. 09/26/19 23 Active multivit with iron,minerals (MULTIVITAMIN AND MINERALS ORAL) Take by mouth. Active metFORMIN (GLUCOPHAGE) 500 mg tablet Take 500 mg by mouth two times daily with meals. 12/15/19 24 Active fluticasone (50 mcg per actuation) nasal solution (FLONASE)Indications:P erennial allergic rhinitis Inhale 2 Sprays in both nostrils once daily. 48 g 3 07/26/19 25 Active azelastine 137 mcg/actuation (ASTELIN) nasal sprayIndications:Aller gic rhinoconjunctivitis Inhale 2 Sprays into affected nostril(s) two times daily. 90 mL 3 07/26/19 25 Active ARIPiprazole 10 mg tablet Take 1 Tablet by mouth once daily. 09/08/19 25 Active omeprazole (PRILOSEC) 40 mg Delayed-Release capsuleIndications:Chr onic GERD Take 1 Capsule (40 mg) by mouth once daily before a meal. 90 Capsule 04/17/20 25 Active omeprazole (PRILOSEC) 20 mg Delayed-Release capsuleIndications:Chr onic GERD TAKE 1 CAPSULE BY MOUTH EVERY DAY BEFORE MEALS 90 Capsule 2 02/02/20 25 025 Discontin ued(*Med complete/ Regimen complete/ Level of care change) fluconazole (DIFLUCAN) 150 mg tabletIndications:Yeas t vaginitis Take 1 Tablet (150 mg) by [...] Encounters Date Type Department Care Team Description 04/17/2025 11:10 AM SHIPYARD PAINTER Office Visit [facility] [address] [place] [address] Terri Orosco PA Concerns (Pain in right side since July. Right below last rib. Sensitive to touch. Constant. Some days pain gets debilitating . Gallbladder out inJune 2024) 04/17/2025 Patient Outreach [address] [address] Jil Anderson RN [facility] Coordination- [facility] 04/17/2025 Travel 04/11/2025 Telephone [facility] [address] [place] [address] Brittani Fontana PA Results 04/10/2025 8:35 AM SHIPYARD PAINTER Office Visit [facility] [address] [place] [address] Brittani Fontana PA Influenza Like Illness (headache, chills, nausea x2 days) 04/10/2025 Travel 03/30/2025 8:35 AM SHIPYARD PAINTER Office Visit [facility] [address] [place] [address] Brittani Fontana PA Vaginal Problem (burning, itching, swelling and sensitivity ) 03/30/2025 Travel 02/14/2025 9:00 AM CDT Office Visit [facility] [address] [address] Kiara Ruelas PA Health Care Aide Exam (discuss getting fibroids out/body odor is smelling off) 02/14/2025 Travel 01/31/2025 Refill [facility] [address] [place] [address] Terri Orosco PA Refill Request (Omeprazole) from Last 3 Months Immunizations Immunization Administration Dates Next Due COVID-19 vaccine (Pfizer-Bio NTech 30mcg/0.3mL) 12YO+ BIVALENT PF, MDV 03/10/2022 COVID-19 vaccine (Pfizer-Bio NTech 30mcg/0.3mL) PF, MDV 2020,08/02/2020 Human Papilloma Virus Vaccine 03/16/2007, 007,09/07/2006 03/11/2007 INFLUENZA, IIV3 PF (AGE >= 6 MO) 01/17/2025 Influenza Virus, Unspecified 01/17/2020,06/11/19 12,05/14/2006 Influenza, CCIIV3 [...] on file Legal Sex Female 5:46 AM SHIPYARD PAINTER Gender Identity Not on file Sexual Orientation [...] 018 36w 0d F Vag PETERSO N,BG [place] Delivery Location:[facility] Last Filed Vital Signs Vital Sign Reading Time Taken Comments Blood Pressure 116/72 04/17/2025 11:08 AM SHIPYARD PAINTER Pulse 99 04/17/2025 11:08 AM SHIPYARD PAINTER Temperature 36.8 C (98.2 F) 04/10/2025 8:42 AM SHIPYARD PAINTER Respiratory Rate 16 06/14/2024 11:01 AM SHIPYARD PAINTER Oxygen Saturation 98% 04/17/2025 11:08 AM SHIPYARD PAINTER Inhaled Oxygen Concentration - - Weight 76.7 kg (169 lb) 04/17/2025 11:08 AM SHIPYARD PAINTER Height 170.2 cm (5' 7) 08/12/2024 10:22 AM CDT Body Mass Index 26.47 08/12/2024 10:22 AM CDT Plan of Treatment Upcoming Encounters Date Type Department Care Team (Late st Contact Info) Description 05/08/2025 1:00 PM SHIPYARD PAINTER Office Visit [facility] [address] [place] [address] Gabbie Tellez MD [address] [place] [address] Health Maintenance Due Date Last Done Comments Hepatitis B series for 19+ (1 of 3 - 19+ 3-dose series) 08/24/2007 COVID-19 vaccine series ( season) 2025 06/01/2024, 03/10/2022, 2020, Additional history exists Depression screening for age [...] screening for age 18-79 Completed 02/23/2024, 04/16/2017 Influenza Vaccine Completed 01/17/2025, , 03/04/2023, Additional history exists Pneumococcal series for age 6-49 Aged Out No longer eligible based on patient's age to complete this topic Goals Goal Patient Goal Type Associated Problems Recent Progress Patient-Stated? Author [facility]: Health Maintenance General No Jil Anderson [...] Check Other (Bone Density, Preventive Vaccines, etc.) [facility]: [place] Cho[place] General Yes Jil Anderson RN Note: Goal Title: [facility] - [place]ICES Goals Goals Creation Date: 12/23/2024 Goals End Date: 12/22/2025 Tonya's [place]CHOICES goal statements (SMART): I will maintain current weight of #160 this target period Actions my Edge Trimmer (CC) will take to support me in achieving these goals: CC will monitor goal progress at biannual Support Plan review and record updates in MnCHOICES. Jil Anderson RN..........12/23/2024 10:41 AM Procedures Procedure Name Priority Date/Time Associated Diagnosis Comments LIPASE Routine 04/17/2025 12:00 PM SHIPYARD PAINTER Abdominal pain, RUQ (right upper quadrant) HEPATIC FUNCTION PANEL Routine 12:00 PM SHIPYARD PAINTER Abdominal pain, RUQ (right upper quadrant) CBC WITH AUTO DIFFERENTIAL Routine 04/10/2025 9:15 AM SHIPYARD PAINTER Abdominal pain, generalized URINE CULTURE Routine 04/10/2025 9:15 AM SHIPYARD PAINTER Abdominal pain, generalized URINALYSIS MICROSCOPIC Routine 9:15 AM SHIPYARD PAINTER Abdominal pain, generalized URINALYSIS MACROSCOPIC - [facility] ONLY POC DIP ([facility]) Routine 04/10/2025 9:15 AM SHIPYARD PAINTER Abdominal pain, generalized C-REACTIVE PROTEIN Routine 04/10/2025 9: 15 AM SHIPYARD PAINTER Abdominal pain, generalized SEDIMENTATION RATE Routine 04/10/2025 9: 15 AM SHIPYARD PAINTER Abdominal pain, generalized CBC WITH AUTO DIFFERENTIAL Routine 04/10/2025 9:15 AM SHIPYARD PAINTER Abdominal pain, generalized BASIC METABOLIC PANEL Routine 04/10/2025 9:15 AM SHIPYARD PAINTER Abdominal pain, generalized COVID/FLU/RSV PANEL Routine 04/10/2025 8 :46 AM SHIPYARD PAINTER Chills URINE CULTURE Routine 03/30/2025 8:45 AM SHIPYARD PAINTER Lower urinary tract symptoms (LUTS) URINALYSIS MICROSCOPIC Routine 8:45 AM SHIPYARD PAINTER Lower urinary tract symptoms (LUTS) URINALYSIS MACROSCOPIC - [facility] ONLY POC DIP ([facility]) Routine 03/30/2025 8:45 AM SHIPYARD PAINTER Lower urinary tract symptoms (LUTS) TRICHOMONAS, AMBER, AND BACTERIAL VAGINOSIS BY KRISHAN Routine 03/30/2025 8:45 AM SHIPYARD PAINTER Acute vaginitis HIV 1/2 ANTIGEN/ANTIBODY FOURTH GENERATION W/RFL ([facility]) Routine 02/23/2024 3:28 PM CDT Screen for STD (sexually transmitted disease) ANTI HCV Routine 02/23/2024 3:28 PM CDT Screen for STD (sexually transmitted disease) BEEF FARMER THIN PREP PAP SCREEN IMAGED Routine 09/19/2021 4:58 PM CDT Screening for malignant neoplasm of cervix from Last 3 Months or Most Recently Relevant to Health Maintenance Results * LIPASE (04/17/2025 12:00 PM SHIPYARD PAINTER) LIPASE 48 7 - 60 U/L 04/18/2025 6:36 AM SHIPYARD PAINTER [facility] Blood BLOOD SPECIMEN / Unknown [facility] Collect / Unknown 04/17/2025 12:00 PM SHIPYARD PAINTER 04/17/2025 12:00 PM SHIPYARD PAINTER us Terri QUINTEROS CHEMISTRY Final Res ult [facility] [address] [place] [address], [place] [phone] * LIVER PANEL (HEPATIC FUNCTION PANEL) (04/17/2025 12:00 PM SHIPYARD PAINTER) ALBUMIN 4.5 3.6 - 5.1 g/dL 04/18/2025 6:36 AM SHIPYARD PAINTER [facility] PROTEIN, TOTAL 7.3 6.1 - 8.1 g/dL 04/18/2025 6:36 AM SHIPYARD PAINTER [facility] BILIRUBIN, TOTAL 0.2 0.2 - 1.2 mg/dL 04/18/2025 6:36 AM SHIPYARD PAINTER [facility] BILIRUBIN, DIRECT 0.0 < OR = 0.2 mg/dL 04/18/2025 6:36 AM SHIPYARD PAINTER [facility] BILIRUBIN, INDIRECT 0.2 0.2 - 1.2 mg/dL (calc) 04/18/2025 6:36 AM SHIPYARD PAINTER [facility] ALKALINE PHOSPHATASE 78 31 - 125 U/L 04/18/2025 6:36 AM SHIPYARD PAINTER [facility] ALT 18 6 - 29 U/L 04/18/2025 6:36 AM SHIPYARD PAINTER [facility] AST 16 10 - 30 U/L 04/18/2025 6:36 AM SHIPYARD PAINTER [facility] GLOBULIN 2.8 1.9 - 3.7 g/dL (calc) 04/18/2025 6:36 AM SHIPYARD PAINTER [facility] ALBUMIN/GLOBULIN RATIO 1.6 1.0 - 2.5 (calc) 04/18/2025 6:36 AM SHIPYARD PAINTER [facility] Blood BLOOD SPECIMEN / Unknown [facility] Collect / Unknown 04/17/2025 12:00 PM SHIPYARD PAINTER 04/17/2025 12:00 PM SHIPYARD PAINTER us Terri QUINTEROS CHEMISTRY Final Res ult [facility] [address] [place] [address] [place] [address], * UA Dip [[id number]] (04/10/2025 9:15 AM SHIPYARD PAINTER) Only the most recent of2 resultswithin the time period is included. BILIRUBIN NEGATIVE NEGATIVE 04/10/2025 9:42 AM [facility] COLOR YELLOW YELLOW 04/10/2025 9:42 AM [facility] APPEARANCE CLEAR CLEAR 04/10/2025 9:42 AM [facility] SPECIFIC GRAVITY > OR = 1.030 1.001 - 1.035 04/10/2025 9:42 AM SHIPYARD PAINTER [facility] Comment: Specific [place] values resulted are outside the analytical measurement range of this device. Recommend repeat/additional testing as clinically indicated. PH 6.0 5.0 - 8.0 04/10/2025 9:42 AM SHIPYARD PAINTER [facility] GLUCOSE NEGATIVE NEGATIVE 04/10/2025 9:42 AM SHIPYARD PAINTER [facility] KETONES NEGATIVE NEGATIVE 04/10/2025 9:42 AM SHIPYARD PAINTER [facility] OCCULT BLOOD NEGATIVE NEGATIVE 04/10/2025 9:42 AM SHIPYARD PAINTER [facility] PROTEIN NEGATIVE NEGATIVE 04/10/2025 9:42 AM SHIPYARD PAINTER [facility] NITRITE NEGATIVE NEGATIVE 04/10/2025 9:42 AM SHIPYARD PAINTER [facility] LEUKOCYTE ESTERASE NEGATIVE NEGATIVE 04/10/2025 9:42 AM SHIPYARD PAINTER [facility] Urine URINE SPECIMEN / Unknown Non-Blood / Unknown 04/10/2025 9:15 AM SHIPYARD PAINTER 04/10/2025 9:15 AM SHIPYARD PAINTER Brittani QUINTEROS URINE Final Result [facility] [address] [address], [place] [phone] [place] [address], [place] [phone] * SEDIMENTATION RATE (04/10/2025 9:15 AM SHIPYARD PAINTER) SED RATE BY MODIFIED NURIS 14 < OR = 20 mm/h 04/11/2025 4:22 AM SHIPYARD PAINTER [facility] Blood BLOOD SPECIMEN / Unknown [facility] Collect / Unknown 04/10/2025 9:15 AM SHIPYARD PAINTER 04/10/2025 9:15 AM SHIPYARD PAINTER us Brittani QUINTEROS HEMATOLOGY Final Result [facility] [address] [address], [place] [phone] * (ABNORMAL) CBC WITH AUTO DIFFERENTIAL (04/10/2025 9:15 AM SHIPYARD PAINTER) WHITE BLOOD CELL COUNT 8.3 3.8 - 10.8 Thousand/ uL 04/11/2025 3:15 AM SHIPYARD PAINTER [facility] RED BLOOD CELL COUNT 4.37 3.80 - 5.10 Million/u L 04/11/2025 3:15 AM SHIPYARD PAINTER [facility] HEMOGLOBIN 12.1 11.7 - 15.5 g/dL 04/11/2025 3:15 AM SHIPYARD PAINTER [facility] HEMATOCRIT 38.5 35.9 - 46.0 % 04/11/2025 3:15 AM SHIPYARD PAINTER [facility] MCV 88.1 81.4 - 101.7 fL 04/11/2025 3:15 AM SHIPYARD PAINTER [facility] MCH 27.7 27.0 - 33.0 pg 04/11/2025 3:15 AM SHIPYARD PAINTER [facility] MCHC 31.4(L) 31.6 - 35.4 g/dL 04/11/2025 3:15 AM SHIPYARD PAINTER [facility] Comment: For adults, a slight decrease in the calculated MCHC value (in the range of 30 to 32 g/dL) is most likely not clinically significant; however, it should be interpreted with caution in correlation with other red cell parameters and the patient's clinical condition. RDW 14.7 11.0 - 15.0 % 04/11/2025 3:15 AM SHIPYARD PAINTER [facility] PLATELET COUNT 373 140 - 400 Thousand/ uL 04/11/2025 3:15 AM SHIPYARD PAINTER [facility] MPV 11.1 7.5 - 12.5 fL 04/11/2025 3:15 AM SHIPYARD PAINTER [facility] NEUTROPHILS 63.3 % 04/11/2025 3:15 AM SHIPYARD PAINTER [facility] LYMPHOCYTES 25.9 % 04/11/2025 3:15 AM SHIPYARD PAINTER [facility] MONOCYTES 7.2 % 04/11/2025 3:15 AM SHIPYARD PAINTER [facility] EOSINOPHILS 2.8 % 04/11/2025 3:15 AM SHIPYARD PAINTER [facility] BASOPHILS 0.8 % 04/11/2025 3:15 AM SHIPYARD PAINTER [facility] ABSOLUTE NEUTROPHILS 5254 1500 - 7800 cells/uL 04/11/2025 3:15 AM SHIPYARD PAINTER [facility] ABSOLUTE LYMPHOCYTES 2150 850 - 3900 cells/uL 04/11/2025 3:15 AM SHIPYARD PAINTER [facility] ABSOLUTE MONOCYTES 598 200 - 950 cells/uL 04/11/2025 3:15 AM SHIPYARD PAINTER [facility] ABSOLUTE EOSINOPHILS 232 15 - 500 cells/uL 04/11/2025 3:15 AM SHIPYARD PAINTER [facility] ABSOLUTE BASOPHILS 66 0 - 200 cells/uL 04/11/2025 3:15 AM SHIPYARD PAINTER [facility] Blood BLOOD SPECIMEN / Unknown [facility] Collect / Unknown 04/10/2025 9:15 AM SHIPYARD PAINTER 04/10/2025 9:15 AM SHIPYARD PAINTER us Brittani QUINTEROS HEMATOLOGY Final Result [facility] [address] [address], * (ABNORMAL) UA Micro [[id number]] (04/10/2025 9:15 AM SHIPYARD PAINTER) Only the most recent of2 resultswithin the time period is included. WBC UA NONE SEEN < OR = 5 /HPF 04/11/2025 4:39 AM SHIPYARD PAINTER [facility] RBC UA NONE SEEN < OR = 2 /HPF 04/11/2025 4:39 AM SHIPYARD PAINTER [facility] BACTERIA UA NONE SEEN NONE SEEN /HPF 04/11/2025 4:39 AM SHIPYARD PAINTER [facility] HYALINE CAST NONE SEEN NONE SEEN /LPF 04/11/2025 4:39 AM SHIPYARD PAINTER [facility] CALCIUM OXALATE CRYSTALS MODERATE( A) NONE OR FEW /HPF 04/11/2025 4:39 AM SHIPYARD PAINTER [facility] SQUAMOUS EPITHELIAL CELLS UA 0-5 < OR = 5 /HPF 04/11/2025 4:39 AM SHIPYARD PAINTER [facility] NOTE UA SEE NOTE 04/11/2025 4:39 AM SHIPYARD PAINTER [facility] Comment: This urine was analyzed for the presence of WBC, RBC, bacteria, casts, and other formed elements. Only those elements seen were reported. Urine URINE SPECIMEN / Unknown Non-Blood / Unknown 04/10/2025 9:15 AM SHIPYARD PAINTER 04/10/2025 9:15 AM SHIPYARD PAINTER us Brittani QUINTEROS URINE Final Result [facility] [address] [address], * Urine Culture [[id number]] (04/10/2025 9:15 AM SHIPYARD PAINTER) Only the most recent of2 resultswithin the time period is included. CULTURE, URINE, ROUTINE SEE NOTE 04/12/2025 3:39 AM SHIPYARD PAINTER [facility] Comment: CULTURE, URINE, ROUTINE Micro Number: [id number] Test Status: Final Specimen Source: Urine Specimen Quality: Adequate Result: No Growth Urine URINE SPECIMEN / Unknown Non-Blood / Unknown 04/10/2025 9:15 AM SHIPYARD PAINTER 04/10/2025 9:15 AM SHIPYARD PAINTER us Brittani QUINTEROS MICROBIOLOGY Final Result Performing Organization Address [facility] de Phone Number [facility] [address] [address], * C-REACTIVE PROTEIN (04/10/2025 9:15 AM SHIPYARD PAINTER) C-REACTIVE PROTEIN (MG/L) 5.9 <8.0 mg/L 04/11/2025 3:41 PM SHIPYARD PAINTER [facility] Blood BLOOD SPECIMEN / Unknown [facility] Collect / Unknown 04/10/2025 9:15 AM SHIPYARD PAINTER 04/10/2025 9:15 AM SHIPYARD PAINTER us Brittani QUINTEROS CHEMISTRY Final Result Performing Organization Address [facility] de Phone Number [facility] [address] [address], * BASIC METABOLIC PANEL (04/10/2025 9:15 AM SHIPYARD PAINTER) SODIUM 140 135 - 146 mmol/L 04/11/2025 3:24 AM SHIPYARD PAINTER [facility] POTASSIUM 4.3 3.5 - 5.3 mmol/L 04/11/2025 3:24 AM SHIPYARD PAINTER [facility] CARBON DIOXIDE 29 20 - 32 mmol/L 04/11/2025 3:24 AM SHIPYARD PAINTER [facility] GLUCOSE 89 65 - 99 mg/dL 04/11/2025 3:24 AM SHIPYARD PAINTER [facility] Comment: Fasting reference interval CALCIUM 9.9 8.6 - 10.2 mg/dL 04/11/2025 3:24 AM SHIPYARD PAINTER [facility] CREATININE 0.73 0.50 - 0.97 mg/dL 04/11/2025 3:24 AM SHIPYARD PAINTER [facility] BUN/CREATININE RATIO SEE NOTE: 6 - 22 (calc) 04/11/2025 3:24 AM SHIPYARD PAINTER [facility] Comment: Not Reported: BUN and Creatinine are within reference range. EGFR 109 > OR = 60 mL/min/1. 73m2 04/11/2025 3:24 AM SHIPYARD PAINTER [facility] UREA NITROGEN (BUN) 16 7 - 25 mg/dL 04/11/2025 3:24 AM SHIPYARD PAINTER [facility] ELECTROLYTE BALANCE 7 7 - 17 mmol/L (calc) 04/11/2025 3:24 AM SHIPYARD PAINTER [facility] CHLORIDE 104 98 - 110 mmol/L 04/11/2025 3:24 AM SHIPYARD PAINTER [facility] Blood BLOOD SPECIMEN / Unknown [facility] Collect / Unknown 04/10/2025 9:15 AM SHIPYARD PAINTER 04/10/2025 9:15 AM SHIPYARD PAINTER Brittani QUINTEROS CHEMISTRY Final Result [facility] [id number] [place] [address], * COVID/FLU/RSV PANEL (04/10/2025 8:46 AM SHIPYARD PAINTER) COVID 19 [facility]LE[facility] Negative Negative 04/10/2025 7:53 PM SHIPYARD PAINTER [facility] INFLUENZA A PCR Negative 7:53 PM SHIPYARD PAINTER [facility] INFLUENZA B PCR Negative 7:53 PM SHIPYARD PAINTER [facility] Respiratory Syncytial Virus Negative 04/10/2025 7:53 PM SHIPYARD PAINTER [facility] Swab NASOPHARYNGEAL SWAB / Unknown Non-Blood / Unknown 04/10/2025 8:46 AM SHIPYARD PAINTER 04/10/2025 9:28 AM SHIPYARD PAINTER Brittani QUINTEROS MICROBIOLOGY Final Result Performing Organization Address [facility] Co de Phone Number [facility] [address] [address], * (ABNORMAL) TRICHOMONAS, AMBER, AND BACTERIAL VAGINOSIS BY KRISHAN (03/30/2025 8:45 AM SHIPYARD PAINTER) AMBER SPECIES Positive(A) Negative, NOT Detected 03/30/2025 7:55 PM SHIPYARD PAINTER [facility] AMBER GLABRATA Negative Negative 03/30/2025 7:55 PM SHIPYARD PAINTER [facility] TRICHOMONAS VVA Negative Negative, NOT Detected 03/30/2025 7:55 PM SHIPYARD PAINTER [facility] BACTERIAL VAGINOSIS Negative Negative, NOT Detected 03/30/2025 7:55 PM SHIPYARD PAINTER [facility] Other VAGINAL SWAB / Unknown Non-Blood / Unknown 03/30/2025 8:45 AM SHIPYARD PAINTER 03/30/2025 8:45 AM SHIPYARD PAINTER Brittani QUINTEROS MICROBIOLOGY Final Result Performing Organization Address [facility] de Phone Number [facility] [address] [place] [address], [place] * HIV 1/2 AG/AB 4TH GEN W/RFL ([facility]) (02/23/2024 3:28 PM CDT) HIV AG/AB, 4TH GEN NON-REACT RACHEL [facility]ACT RACHEL [facility] Comment: HIV-1 antigen and HIV-1/HIV-2 antibodies [...] purpose. For additional information please refer to http://Clikthrough.InformedDNA/faq/WOQ231 (This link is being provided for informational/ educational purposes only.) The performance of this assay has not been clinically validated in patients less than 2 years old. Blood BLOOD SPECIMEN / Unknown 02/23/2024 3:28 PM CDT 02/23/2024 3:28 PM CDT Terri QUINTEROS SEND OUTS Final Res ult Performing Organization Address [facility]/ZIP Co de Phone Number [email or web address] [address] [place] [address], [facility] [address] [place] [address] * ANTI HCV (02/23/2024 3:28 PM CDT) HEPATITIS C ANTIBODY NON-REACTI VE NON-REACT RACHEL [facility] Comment: HCV antibody was non-reactive. There is no laboratory evidence of HCV infection. In most cases, no further action is required. However, if recent HCV exposure is suspected, a test for HCV RNA (test code 72404) is suggested. For additional information please refer to http://Clikthrough.InformedDNA/faq/QZU58k2 (This link is being provided for informational/ educational purposes only.) Blood BLOOD SPECIMEN / Unknown 02/23/2024 3:28 PM CDT 02/23/2024 3:28 PM CDT Terri QUINTEROS SEND OUTS Final Res ult Performing Organization Address [facility]/ZIP Co de Phone Number [email or web address] [address] [place] [address], [place] [phone] [facility] [address] [place] [address] * BEEF FARMER THIN PREP PAP SCREEN IMAGED (09/19/2021 4:58 PM CDT) Case Report Gynecologic Cytology Report Case: [id number] Authorizing Provider: Prerna Garza PA Collected: 09/19/2021 1658 Ordering Location: [facility] Received: 09/19/2021 1713 Clinic First Screen: Columba Jorge Pathologist: Pradip Daniel Jr., MD Specimen: BEEF FARMER ThinPrep Vial Screening, Cervical 10/08/2021 12:40 PM CDT [facility] INTERPRETATION/ RESULT NEGATIVE FOR INTRAEPITHELIAL LESION OR MALIGNANCY (NIL) (none) 10/08/2021 12:40 PM CDT [facility] at 1240 CDT OTHER NON-NEOPLASTIC FINDING(S) Reactive cellular changes associated with inflammation/repa ir 10/08/2021 12:40 PM CDT [facility] SPECIMEN ADEQUACY Satisfactory for evaluation Endocervical component present 10/08/2021 12:40 PM CDT [facility] HPV REQUEST HPV and PAP 10/08/2021 12:40 PM CDT [facility] Date of LMP hormonally suppressed 10/08/2021 12:40 PM CDT [facility] Last Pap Date 07/20/18 10/08/2021 12:40 PM CDT [facility] Last Pap Result NIL 12:40 PM CDT [facility] Abnormal Pap or [place] Bx in last 5 years No 10/08/2021 12:40 PM CDT [facility] Menstrual Status Hormonally Suppressed 10/08/2021 12:40 PM CDT [facility] [place] Bx Done Today No 10/08/2021 12:40 PM CDT [facility] Additional Information None given 10/08/2021 12:40 PM CDT [facility] Comment: Cytology is screened at [facility] - [address], [place] [address] and [facility] - [address] [place] [address], [place] [address] and [facility] - [address] [place] [address] Interpreted at [facility] - [address] [place] [address], [place] [address] Automated Review Successful 10/08/2021 12:40 PM CDT [facility] Comment:Specimen processed s uccessfully by automated photogrammetric tech device, [employer] System, [employer] ANCILLARY TESTING BEEF FARMER HPV Ordered, Please see separate report 10/08/2021 12:40 PM CDT [facility] Note The pap test is a [...] and malignant lesions. 10/08/2021 12:40 PM CDT [facility] Other (Cervical) Non-Blood / Unknown 09/19/2021 4:58 PM CDT 09/19/2021 5:13 PM CDT [facility] PATHOLOGY/CYTOLOGY Final R esult [facility] [address] [place] [address], [place] from Last 3 Months or Most Recently Relevant to Health Maintenance Insurance MEDICARE PB ONLY MEDICARE PART B HB ONLY MEDICARE PART A HB ONLY MEDICA ACCESSABILITY SOLUTION MEDICARE PB ONLY MEDICA CHOICE [address]ARE [id number] [facility] [place] [id number] [id number] [facility] [place] [id number] [employer] Advance Directives * Full [...] 3:11 PM 08/27/2009 7:09 PM Care Teams Market Development Manager Relationship Specialty Start Date End Date Terri Orosco PA [address] [place] [address] PCP - General Physician Set Key Driver 01/20/24 Jil Anderson, RN [address] [place] [address] [employer] Coordination Edge Trimmer 06/28/19 [employer] [address], [place] [address] Psychiatry Psychiatry 12/17/23 [facility] [address] [facility] [address] [place] [address] Psychologist Psychology 12/17/23
[2025-04-22 13:59] VITALS: BP 116/76; PULSE 78; RESP 16; TEMP 36.3; O2SAT 100; BMI 27.1
[2025-04-22 14:15] LABS: Appearance Urine Clear (Clear)
--- NOTE | 2025-04-22 14:27 | CRLHL7_ITS ---
For Patients: As a result of the Century Cures Act, medical imaging exams and procedure reports are released immediately into your electronic medical record. You may view this report before your referring provider. If you have questions, please contact your health care provider. INDICATION: RUQ PAIN SINCE CHOLECYSTECTOMY 6 MONTHS AGO TECHNIQUE: CT abdomen and pelvis acquired with 82 cc Isovue 370 IV contrast. COMPARISON: July 2014. FINDINGS: Lower chest: The visualized lower lungs are aerated. No pleural or pericardial effusion. ABDOMEN: Liver: Normal enhancement. No focal suspicious hepatic lesions. Gallbladder and biliary: Cholecystectomy. Normal caliber bile ducts. Spleen: Normal size and enhancement. Pancreas: Normal enhancement without peripancreatic inflammatory changes or ductal dilatation. Adrenal glands: Normal adrenal glands. Kidneys and ureters: Normal enhancement. No radio-opaque calculi. No hydroureteronephrosis. Subcentimeter hypodensities are too small to characterize however statistically represent cysts. GI tract: Stomach is partially distended with oral debris and air. Normal caliber small and large bowel loops. Normal appendix. Vascular structures: Normal caliber abdominal aorta. Lymph nodes: No lymphadenopathy in the abdomen or pelvis by size criteria. Peritoneum: No free air, free fluid, or focal drainable fluid collection. PELVIS: Genitourinary system: Urinary bladder is relatively decompressed. Age-appropriate uterus and ovaries. Likely left uterine wall fibroid. SKELETAL STRUCTURES AND SOFT TISSUES: No suspicious lytic or blastic lesions. IMPRESSION: No discrete acute process in the abdomen or pelvis. No obstruction. No hydroureteronephrosis. Normal appendix. Stomach is partially distended with oral debris and air. Please note that all CT scans at this facility use dose modulation, iterative reconstruction, and/or weight-based dosing when appropriate to reduce radiation dose to as low as reasonably achievable. Dictated by Joshua Cheng MD @ 04/22/2025 3:31:56 PM (Electronically Signed)
--- NOTE | 2025-04-22 14:29 | ED.ABDPAIN ---
HPI - Abdominal Pain General Chief Complaint: Abdominal Pain Stated Complaint: abdominal pain Time Seen by Provider: 04/22/25 14:10 History of Present Illness HPI narrative: This 34-year-old female comes in reporting persistent right upper quadrant abdominal pain. She had her gallbladder removed about 6 months ago and states that she has had persistent right upper quadrant pain since then. She states that it feels somewhat like her gallbladder symptoms were before she had it removed. She states that she is eating okay and does not have any vomiting or diarrhea. She does not report any fevers. She did go to her primary physician but states that nothing was done and she was encouraged to allow a recovery from the surgery. It has now been more than 6 months with persistent daily right upper quadrant pain. She arrives here with normal vital signs. Related Data Home Medications ?Medication ?Instructions ?Recorded ?Confirmed bupropion HCl 300 mg 24 hr tablet, 300 mg PO DAILY 12/05/21 10/17/24 extended release fexofenadine 180 mg tablet 180 mg PO QDAY 12/05/21 10/17/24 (María Allergy) omeprazole 20 mg capsule,delayed 20 mg PO DAILY 01/13/22 10/17/24 release melatonin 5 mg tablet 10 mg PO HS PRN 09/11/22 10/17/24 venlafaxine 150 mg 150 mg PO DAILY 07/26/23 10/17/24 capsule,extended release 24 hr metformin 500 mg tablet 500 mg PO BID 06/15/24 10/17/24 aripiprazole 15 mg tablet (Abilify) 10 mg PO DAILY 10/17/24 10/17/24 bupropion HCl 300 mg 24 hr tablet, 300 mg PO DAILY 10/17/24 10/17/24 extended release (Wellbutrin XL) fluticasone propionate 50 2 spray intranasal DAILY 10/17/24 10/17/24 mcg/actuation nasal spray,suspension Previous Rx's ?Medication ?Instructions ?Recorded hydrocodone 5 mg-acetaminophen 325 1 tab PO Q6H PRN pain #25 tabs 10/18/24 mg tablet cyclobenzaprine 10 mg tablet 10 mg PO TID #15 tabs 04/22/25 ketorolac 10 mg tablet 10 mg PO TID 5 days #15 tabs 04/22/25 Allergies Allergy/AdvReac Type Severity Reaction Status Date / Time azithromycin Allergy Severe Throat Verified 04/22/25 14:47 swelling cat dander Allergy Verified 04/22/25 14:47 house dust Allergy Verified 04/22/25 14:47 ragweed pollen Allergy Verified 04/22/25 14:47 Review of Systems Status of ROS Reports: 10 or more systems reviewed and unremarkable except as noted in History and below Narrative Constitutional: No fevers, no weight gain or loss. Eyes: No discharge. No vision changes. HENT: No congestion, no sore throat, no ear pain. Cardiovascular: No chest pain, no palpitations. Respiratory: No shortness of breath, no wheezes, no cough. Gastrointestinal: No vomiting, no diarrhea. Right upper quadrant abdominal pain. Genitourinary: No dysuria, no hematuria. Musculoskeletal: Normal range of motion. Skin: No rashes, no pruritis. Neurological: No dizziness, weakness, sensory change, speech change. Endo/Heme/Allergies: No bruising or bleeding. No polydipsia. Pysch: no suicidality, no anxiety, no insomnia. All other systems reviewed and are negative. 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 (ICD-10) Moderate episode of recurrent major depressive disorder ?F33.1 - Major depressive disorder, recurrent, moderate (ICD-10) Mild intellectual disabilities ?F70 - Mild intellectual disabilities (ICD-10) Chronic GERD ?K21.9 - Gastro-esophageal reflux disease without esophagitis (ICD-10) Hyperlipidemia, unspecified ?E78.5 - Hyperlipidemia, unspecified (ICD-10) Autism spectrum disorder ?F84.0 - Autistic disorder (ICD-10) Constipation, unspecified ?K59.00 - Constipation, unspecified (ICD-10) Allergic rhinitis, unspecified ?J30.9 - Allergic rhinitis, unspecified (ICD-10) Depression with anxiety ?F41.8 - Other specified anxiety disorders (ICD-10) Surgical History Status post breast reduction ?Z98.890 - Other specified postprocedural states (ICD-10) Perineal abscess (02/2009) ?L02.215 - Cutaneous abscess of perineum (ICD-10) S/P tonsillectomy and adenoidectomy (2014) ?Z90.89 - Acquired absence of other organs (ICD-10) History of tubal ligation (06/2017) ?Z98.51 - Tubal ligation status (ICD-10) Family History Father High cholesterol Maternal Grandmother Diabetes Social History Narrative: Single 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 Highest level of school completed/degree received: some college, no degree Smoking Status: Never smoker Do you use any of these nicotine containing products: None How often do you have a drink containing alcohol: monthly or less Alcohol type: hard liquor How many standard drinks containing alcohol do you have on a typical day: 1 or 2 How often do you have six or more drinks on one occasion: Never AUDIT-C Alcohol total score: 1 Non-prescribed substance use: denies use Caffeine: Yes Are you using contraception or practicing any form of control: No service: No Exam Narrative: Exam Narrative: Constitutional: Well-developed, well-nourished, no acute distress. HEENT: Normocephalic, atraumatic. Neck: Normal range of motion. Nontender. Supple. Heart: Regular. No murmurs. Normal rate. Intact distal pulses. Lungs: Clear to auscultation. No chest discomfort. No wheezes, rhonchi, or rales. Abdomen: Normal bowel sounds. Diffuse tenderness in the right upper quadrant. No rebound tenderness. Genitalia: Deferred. Back: No midline tenderness. Normal range of motion. Extremities: Normal range of motion. No injury. Skin: Intact. No rash. Warm. No erythema or pallor. Neurologic: No altered sensation. No weakness. Alert and oriented. Psychiatric: No suicidality. No anxiety or depression. No insomnia. Nursing notes and vitals signs are reviewed. Const: Vital Signs, click to edit/add: Vital Signs - 24 hr 04/22/25 13:59 Temperature 97.4 F L Pulse Rate [Pulse Oximeter] 78 Respiratory Rate 16 Blood Pressure [Ri ght Upper Arm] 116/76 Pulse Oximetry 100 Oxygen Delivery Me thod Room Air Course Vital Signs Vital signs: Initial Vital Signs Temperature 97.4 F L 04/22/25 13:59 Temperature Source Temporal Artery Scan 04/22/25 13:59 Pulse Rate 78 04/22/25 13:59 Respiratory Rate 16 04/22/25 13:59 Blood Pressure 116/76 04/22/25 13:59 Blood Pressure Mean 89 04/22/25 13:59 Blood Pressure Position Sitting 04/22/25 13:59 Pulse Oximetry 100 04/22/25 13:59 Oxygen Delivery Method Room Air 04/22/25 13:59 Vital Signs Temperature 97.4 F L 04/22/25 13:59 Pulse Rate 78 04/22/25 13:59 Respiratory Rate 16 04/22/25 13:59 Blood Pressure 116/76 04/22/25 13:59 Pulse Oximetry 100 04/22/25 13:59 Oxygen Delivery Method Room Air 04/22/25 13:59 Temperature 97.4 F L 04/22/25 13:59 Pulse Rate 78 04/22/25 13:59 Respiratory Rate 16 04/22/25 13:59 Blood Pressure 116/76 04/22/25 13:59 Pulse Oximetry 100 04/22/25 13:59 Oxygen Delivery Method Room Air 04/22/25 13:59 MDM - Abdominal Pain MDM Narrative Medical decision making narrative: This patient comes in reporting right upper quadrant abdominal pain that is occurring every day since having her gallbladder removed more than half year ago. She arrives with normal vital signs and does not report any other symptoms. She did go to see her primary physician and was encouraged to hang in there as this could be recovery from her surgery. Now that it has been this long since then I did order CT scan with labs and these all returned with normal results. I relayed these results to the patient and stated that it actually is a good report but does not explain her symptoms. I advised her to follow-up with her surgeon in surgery clinic as there are some other tests outside the ER that may be appropriate for further workup for this. I did also provide prescription for Toradol and Flexeril. Lab Data Labs: Lab Results 04/22/25 04/22/25 Range/Units 14:10 14:27 WBC 7.71 (4.50-11.00) K/uL RBC 3.93 L (4.00-5.20) m/uL Hgb 11.0 L (12.0-16.0) gm/dL Hct 34.5 (33.0-51.0) % MCV 88 (80-100) fL MCH 28 (26-34) pg MCHC 32 (32-36) gm/dL RDW Coeff of Vandana 15.4 (11.5-15.5) % Plt Count 334 (140-440) K/uL Neut % (Auto) 55.7 (42.0-72.0) % Lymph % (Auto) 30.1 (20-44) % [place] % (Auto) 7.3 (0.0-11.0) % Eos % (Auto) 5.6 (0.0-7.0) % Baso % (Auto) 0.8 (0.0-3.0) % Neut # (Auto) 4.30 (1.7-7.0) K/uL Lymph # (Auto) 2.32 (0.90-2.90) K/uL [place] # (Auto) 0.60 (0.00-0.90) K/UL Eos # (Auto) 0.43 (0.00-0.50) K/uL Baso # (Auto) 0.06 (0.00-0.30) K/uL Abs Immat Gran (auto) 0.04 (0.00-0.30) K/uL Imm/Tot Granulo (auto) 0.5 % Sodium 138 (135-149) mmol/L Potassium 3.8 (3.6-5.1) mmol/L Chloride 101 (96-114) mmol/L Carbon Dioxide 25 (20-32) mmol/L Anion Gap 12 (7-15) mEq/L BUN 14 (5-24) mg/dL Creatinine 0.8 (0.5-1.5) mg/dL Estimated Creat Clear 91.01 Estimated GFR 98 ml/min Glucose 112 (60-115) mg/dL Calcium 8.9 (8.4-10.6) mg/dL Total Bilirubin 0.2 (0.1-1.5) mg/dL Direct Bilirubin 0.2 (0.0-0.5) mg/dL AST 23 (12-35) U/L ALT 22 (4-35) U/L Alkaline Phosphatase 82 (40-150) U/L Total Protein 6.7 (6.0-8.3) g/dL Albumin 4.0 (3.3-5.0) g/dL Lipase 164 (23-300) U/L Urine Color Yellow (Yellow) Urine Appearance Clear (Clear) Urine pH 6.5 (5.0-8.5) Ur Specific [place] 1.025 (1.000-1.030) Urine Protein Negative (Negative) Urine Glucose (UA) Negative (Negative) Urine Ketones Negative (Negative) Urine Blood Negative (Negative) Urine Nitrite Negative (Negative) Urine Bilirubin Negative (Negative) Urine Urobilinogen 0.2 (0.2-1.0) Ur Leukocyte Esterase Negative (Negative) Urine RBC 0-2 (0-2) Urine WBC 0-2 (0-5) Ur Squamous Epith Cells None (None-Few) Urine Bacteria None (None) Imaging Data CT scan - abdomen: Radiologist's impression: No discrete acute process in the abdomen or pelvis. No obstruction. No hydroureteronephrosis. Normal appendix. Stomach is partially distended with oral debris and air. Discharge Plan Discharge Clinical Impression: Abdominal pain Patient Disposition: Home, Self-Care Condition: Stable Additional Instructions: Take medications as needed and directed. Follow up with surgery clinic for ongoing diagnosis and further plans. Return if worsening. Prescriptions: New cyclobenzaprine 10 mg tablet 10 mg PO TID Qty: 15 0RF ketorolac 10 mg tablet 10 mg PO TID 5 Days Qty: 15 0RF No Action bupropion HCl 300 mg tablet extended release 24 hr 300 mg PO DAILY fexofenadine [María Allergy] 180 mg tablet 180 mg PO QDAY omeprazole 20 mg capsule,delayed release(DR/EC) 20 mg PO DAILY melatonin 5 mg tablet 10 mg PO HS PRN bupropion HCl [Wellbutrin XL] 300 mg tablet extended release 24 hr 300 mg PO DAILY fluticasone propionate 50 mcg/actuation spray,suspension 2 spray INTRANASAL DAILY aripiprazole [Abilify] 15 mg tablet 10 mg PO DAILY hydrocodone-acetaminophen 5-325 mg tablet 1 tab PO Q6H PRN (Reason: pain) Qty: 25 0RF venlafaxine 150 mg capsule,extended release 24hr 150 mg PO DAILY metformin 500 mg tablet 500 mg PO BID Follow Up/Referrals: Terri Orosco PA-C [Primary Care Provider, Family Practice] [facility]
[2025-04-22 14:55] LABS: Hematocrit* 34.5 % (33.0-51.0); Hemoglobin* 11.0 gm/dL (12.0-16.0); Immature Granulocytes Abs Auto 0.04 K/uL (0.00-0.30); Immature Granulocytes Pct Auto 0.5 %; Lymphocytes Absolute Auto 2.32 K/uL (0.90-2.90); Mean Corpuscular HGB Conc 32 gm/dL (32-36); Mean Corpuscular Hemoglobin 28 pg (26-34); Mean Corpuscular Volume 88 fL (80-100); RDW Coefficient of Variation % 15.4 % (11.5-15.5); Red Blood Count* 3.93 m/uL (4.00-5.20); Slide Review Reflex No; White Blood Count* 7.71 K/uL (4.50-11.00)
[2025-04-22 15:03] LABS: Albumin* 4.0 g/dL (3.3-5.0); Chloride* 101 mmol/L (96-114); Potassium* 3.8 mmol/L (3.6-5.1); Sodium* 138 mmol/L (135-149)
[2025-04-22 15:06] LABS: Alanine Aminotransferase* 22 U/L (4-35); Alkaline Phosphatase* 82 U/L (40-150); Anion Gap 12 mEq/L (7-15); Aspartate Amino Transferase* 23 U/L (12-35); Bilirubin Direct* 0.2 mg/dL (0.0-0.5); Bilirubin Total* 0.2 mg/dL (0.1-1.5); Blood Urea Nitrogen* 14 mg/dL (5-24); Calcium* 8.9 mg/dL (8.4-10.6); Carbon Dioxide* 25 mmol/L (20-32); Creatinine* 0.8 mg/dL (0.5-1.5); Est. Creatinine Clearance* 91.01; Estimated Glomerular Filt Rate 98 ml/min; Glucose* 112 mg/dL (60-115); Total Protein* 6.7 g/dL (6.0-8.3)
[2025-04-22 16:02] VITALS: BP 113/79; PULSE 84; RESP 14; O2SAT 94
== END 2025-04-22 16:04 | disposition home or self-care (01) ==
PROVIDERS: Emergency Provider Emergency Medicine Emergency Medical Services; PCP Student in an Organized Health Care Education/Training Program
DX: R10.11 Right upper quadrant pain (principal)
CPT/HCPCS: 36415; 74177; 80048; 80076; 81001; 83690; 85025; 99284; 99285; Q9967